=== PATIENT | female | born 1985 | race Caucasian/White ===

== ENCOUNTER → 2023-04-09 11:01 | Outpatient (BNVA) | payer MEDICAID, SELFPAY | PROVIDERS: PCP Nurse Practitioner Family; Visit Provider Nurse Practitioner Family | DX: M96.1 Postlaminectomy syndrome, not elsewhere classified (principal); M51.36 Other intervertebral disc degeneration, lumbar region; M47.817 Spondylosis without myelopathy or radiculopathy, lumbosacral region; M54.16 Radiculopathy, lumbar region; M25.551 Pain in right hip; M25.552 Pain in left hip; M53.3 Sacrococcygeal disorders, not elsewhere classified; G89.4 Chronic pain syndrome | CPT/HCPCS: 99202 ==

== ENCOUNTER 2023-04-19 13:11 | Day surgery (SDC) | payer MEDICAID, SELFPAY ==
--- NOTE | 2023-04-18 12:07 | P.CONAN_ITS ---
Documented by User: Allyssa Mena NP 04/18/23 12:11 HPI - Anesthesia Eval Consult details Narrative: 37yo F for Right Therapeutic Hip Intra-Articular Injection Opioids daily PMFSH Active Problems Active Problems: All Active Problems (Updated 04/10/23 @ 22:14 by ANGELY Campbell) Sacroiliac joint pain (Acute) Bilateral hip pain (Acute) Chronic pain syndrome (Acute) Lumbar radicular pain (Acute) Lumbosacral spondylosis (Acute) Lumbar degenerative disc disease (Acute) Failed back syndrome of lumbar spine (Acute) Past Medical History Medical History (Updated 04/10/23 @ 22:14 by ANGELY Campbell) Cholelithiasis Chronic GERD Chronic pain associated with significant psychosocial dysfunction Failed back syndrome of lumbar spine Low back pain Lumbar degenerative disc disease Major depressive disorder Social History Social History Alcohol intake: current Alcohol intake frequency: holidays/special occasions only Patient Tobacco Use Status: Never used Tobacco Advance Directives: No Advance Directives Information Provided: Yes Meds Allergies Allergy/AdvReac Type Severity Reaction Status Date / Time Penicillins Allergy Unknown Unknown Verified 04/09/23 11:16 Home Medications Medication Instructions Recorded Confirmed Last Taken Type cyclobenzaprine 5 mg tablet 5 mg PO BEDTIME PRN 04/09/23 Unknown History fluticasone propionate 50 0 mcg intranasal 04/09/23 Unknown History mcg/actuation nasal spray,suspension folic acid 1 mg tablet 1 mg PO DAILY 04/09/23 Unknown History hydroxyzine pamoate 25 mg capsule 25 - 50 mg PO BEDTIME PRN 04/09/23 Unknown History ibuprofen 600 mg tablet 600 mg PO TID PRN 04/09/23 Unknown History omeprazole 40 mg capsule,delayed 40 mg PO QAM 04/09/23 Unknown History release ondansetron 4 mg disintegrating 4 mg PO TID PRN 04/09/23 Unknown History tablet oxycodone 5 mg tablet 10 mg PO 04/09/23 Unknown History pantoprazole 40 mg tablet,delayed 40 mg PO DAILY 04/09/23 Unknown History release Exam Exam Date and Time: April 18, 2023 120 Assessment and Plan Assessment Anesthesia Assessment: Chart Reviewed Documented by User: Vern Guallpa MD 04/19/23 13:19 REPLACED BY [facility] Past Medical History Medical History (Updated 04/10/23 @ 22:14 by ANGELY Campbell) Cholelithiasis Chronic GERD Chronic pain associated with significant psychosocial dysfunction Failed back syndrome of lumbar spine Low back pain Lumbar degenerative disc disease Major depressive disorder Surgical History History of Problems with Anesthesia: No Social History Social History Alcohol intake: current Alcohol intake frequency: holidays/special occasions only Patient Tobacco Use Status: Never used Tobacco Advance Directives: No Advance Directives Information Provided: Yes Meds Allergies Allergy/AdvReac Type Severity Reaction Status Date / Time Penicillins Allergy Unknown Unknown Verified 04/09/23 11:16 Home Medications Medication Instructions Recorded Confirmed Last Taken Type cyclobenzaprine 5 mg tablet 5 mg PO BEDTIME PRN 04/09/23 Unknown History fluticasone propionate 50 0 mcg intranasal 04/09/23 Unknown History mcg/actuation nasal spray,suspension folic acid 1 mg tablet 1 mg PO DAILY 04/09/23 Unknown History hydroxyzine pamoate 25 mg capsule 25 - 50 mg PO BEDTIME PRN 04/09/23 Unknown History ibuprofen 600 mg tablet 600 mg PO TID PRN 04/09/23 Unknown History omeprazole 40 mg capsule,delayed 40 mg PO QAM 04/09/23 Unknown History release ondansetron 4 mg disintegrating 4 mg PO TID PRN 04/09/23 Unknown History tablet oxycodone 5 mg tablet 10 mg PO 04/09/23 Unknown History pantoprazole 40 mg tablet,delayed 40 mg PO DAILY 04/09/23 Unknown History release Exam Airway Mallampati Class: II Neck ROM: Full Heart: rrr Lungs: cta Assessment and Plan Assessment Anesthesia Assessment: Anesthesia Plan Discussed Final Anesthetic Review History of Problems with Anesthesia: No NPO: Yes ASA Class: II Final Preanesthetic Review: No Changes in Pt Med Stat, Meds/Allgs Chart Reviewed, Consent Obtained/Reviewed and Anes Risks/Benef Reviewed Patient Risk: Low Procedure Risk: Low Anesthetic Plan Anesthetic Plan: MAC: and Agree w/ Assess. and Plan Disposition: Standard PACU
[2023-04-19 13:35] VITALS: BMI 30.4
[2023-04-19] MEDS: Lactated Ringers 1,000 ML 100 ML IVCONT (13:38)
[2023-04-19 13:47] LABS: UPreg QC Valid YES; Urine Pregnancy NEGATIVE (NEGATIVE)
[2023-04-19 13:49] VITALS: BP 115/82; PULSE 76; RESP 18; TEMP 36.7; O2SAT 97
--- NOTE | 2023-04-19 14:21 | MHC.SHP ---
Pre-Procedural Eval Section A Date of Service: 04/19/23 Section B Chief Complaint: Right and Left pain in the hip Details of Present Illness: as above Relevant Family History (Specify if Yes): No Relevant Social History: None Present Medications: see Short Stay Collaborative assessment Medical History: No relevant PMH History of Previous Operations: No relevant previous surgery Allergies: Allergies Allergy/AdvReac Type Severity Reaction Status Date / Time Penicillins Allergy Unknown Unknown Verified 04/19/23 13:50 morphine AdvReac Anxiety Verified 04/19/23 13:54 Review of Systems Sugical H&P ROS: Negative: Constitution, Cardiovascular, Respiratory, Neurological, Psychiatric, Hem-Onc, Allergic/Immunologic, Gastrointestinal, Genitourinary, Integumentary, Endocrine and Eyes/Ears/Nose/Throat and Yes, Specify: Musculoskeletal (postlaminec s-manuel, hip osteoarthritis) Exam Surgical H&P Exam: Normal: HEENT, Normal: Heart, Normal: Lungs, Normal: Extremities, Normal: Abdomen, Normal: Skin and Normal: Neurological Plan Diagnosis/Plan: Unchanged I have reviewed the history and physical and performed a pertinent physical examination on my patient. No changes have occurred unless specified. Time Spent With Patient Time: Total time managing care of this patient today _5___ minutes.
--- NOTE | 2023-04-19 14:52 | P.BOP_ITS ---
Brief Operative Note Date of Service: 04/19/23 Pre-op diagnosis: right hip osteoarthritis Post-op diagnosis: same Procedure: right hip steroid injection. Surgeon: Joseph Roman MD Anesthesia: MAC Was an [employer] Administrator used for this Procedure?: No Estimated blood loss (mL): 0 Condition: stable Disposition: PACU
--- NOTE | 2023-04-19 14:55 | W.PM.OPN ---
Operative Note Operative Note Date of Service: 04/19/23 Narrative: right hip steroid injection. Informed consent was explained to the patient. All questions were explained and answered.? The patient was taken inside of the operating room where she was positioned left lateral decubitus on operating table.. ASA m-rs were applied and the patient was sedated. Time-out was performed delineating patient's name and date of , correct site, side, the nature of the procedure, patient's allergy, preoperative antibiotic if needed, need for VT prophylaxis..? All operating room staff was participating in OR time-out procedure. Right hip area of the patient was prepped with ChloraPrep and draped with sterile towels.? C-arm was brought over the operating field and picture of left and right lateral views of the bilateral hip joints were delineated on the screen.? The smaller joint silhouette was chosen as the target. ? Projection of the?right trochanter to the skin was chosen as the initial needle insertion point.? After that the skin and subcutaneous tissues was anesthetized with 2% lidocaine 2.5 mL.? 22 gauge 5 in long needle was inserted through the skin and started to advance to the joint space under intermittent lateral and? anterior posterior views.? When needle entered the capsule of the joint small amount of the contrast was injected delineating intra-articular space.? After that treatment solution containing 4 cc of bupivacaine 0.5% and 40 mg of Kenalog was injected into the joint.? The needle was withdrawn sterile dressing was applied.The patient tolerated procedure well.
[2023-04-19 15:00] VITALS: BP 107/56; PULSE 78; RESP 16; TEMP 36.4; O2SAT 99
[2023-04-19 15:13] VITALS: BP 105/66; PULSE 60; RESP 16; TEMP 36.7; O2SAT 99
== END 2023-04-19 15:42 | disposition home or self-care (01) ==
PROVIDERS: Nurse Practitioner; PCP Nurse Practitioner Family; Visit Provider Anesthesiology
PROC: (CPT 20610; principal; 2023-04-19 14:50)
DX: M16.11 Unilateral primary osteoarthritis, right hip (principal); M25.552 Pain in left hip; M96.1 Postlaminectomy syndrome, not elsewhere classified; G89.4 Chronic pain syndrome; M51.36 Other intervertebral disc degeneration, lumbar region; M47.817 Spondylosis without myelopathy or radiculopathy, lumbosacral region; M54.16 Radiculopathy, lumbar region; M53.3 Sacrococcygeal disorders, not elsewhere classified; Z88.0 Allergy status to penicillin; Z88.6 Allergy status to analgesic agent
CPT/HCPCS: 20610; 81025; J3301

== ENCOUNTER 2023-06-11 13:35 | Outpatient (AMB) | payer MEDICAID, SELFPAY ==
--- NOTE | 2023-06-11 13:37 | A.OFFVIS_ITS ---
Intake Vital Signs 06/11/23 13:43 Height 5 ft 5 in Weight 190 lb BMI 31.6 BP 119/76 Blood Pressure Location Lt brachial Position Sitting Pulse 84 Pulse Source Pulse Oximeter Pulse Oximetry (%) 97 Oxygen Delivery Method Room Air Intake Visit Reasons: s/p R. Hip 04/19/23 Allergies Penicillins Allergy (Unknown, Verified 06/11/23 13:44) Unknown morphine Adverse Reaction (Verified 06/11/23 13:44) Anxiety HPI HPI Comments History of Present Illness Details Patient presents today for follow up to assess response to Right Hip Intra-Articular Steroid injection on 04/19/[address] Roman. Patient reports 90% ongoing pain relief in her right hip and better movements for right leg, partially better functioning and sleep. She continues to endorse chronic low back pain with radiation to both her lower extremities. She is s cheduled to undergo Caudal ADDY with catheter this Sunday. Patient reports she has passed Behavioral Assessment in April for potential SCS and ITDD trials. Unfortunately, we have not received Behavioral Assessment report from [facility] as of today and will contact them for current status. Denies any recent cough, cold, infection, fever or other significant changes in medical history since last office visit. Patient denies any bladder or bowel incontinence or saddle anesthesia. Past Procedures: 04/19/23: Right Hip Intra-Articular Steroid injection-90% ongoing pain relief PRIOR: Patient is a 37 years old female with history of post laminectomy syndrome of lumbar spine, lumbar spine fusion L5-S1, chronic pain of his significant psychosocial dysfunction, depression, elevated STEPHANIE, obesity presents today with lower back pain radiating to her bilateral lateral hips and lower extremities laterally. Denies any recent trauma, injury, or falls. This has been chronic pain for the past 16 years and has been progressively getting worse. Pain affects her daily functioning, mobility, mood, sleep, social interactions and quality of life. Patient became tearful as she described her inadequate sleep for a very long time due to intractable pain in her lower back and difficulty finding the right positioning for comfort. Patient recently completed lumbar spine MRI which revealed new L4-L5 mild broad-based disc bulge with an extra foraminal protrusion and annular fissure. [id number] right and minimal left foraminal narrowing. Patient was recommended by her provider at [facility] to get a new spine injection which patient elected against that due to ineffective injections in the past. Currently patient is taking oxycodone which only partially alleviate her chronic back pain. I have informed patient that our office currently does not offer opioid prescribing. She was referred to us for potential spinal cord stimulator or intrathecal pump for for a more sustained pain relief. Patient is agreeable to both trials, SCS and ITDD trials, therefore I will submit referral for Behavioral Assessment today. We discussed alternative options, risk and benefits for both interventional therapies and I have provided patient and her is informational booklet today. She is also interested to get right hip intra-articular steroid and caudal ADDY with catheter injections under sedation. Patient reports she has tried physical therapy and back injections in the past and has not gained significant pain relief or improved functioning. She denies any fever, weight changes, abdominal or groin pain, bladder or bowel incontinence or saddle anesthesia. Location Low back pain and bilateral hip pain Duration Chronic back pain x16 years, progressively getting worse Characteristics of symptom or complaint Aching, spasming, tingling, shooting, shock-like, throbbing, stabbing Aggravating or associated factors Walking, standing, prolonged sitting, changing positioning, weather changes Relieving factors Oxycodone, cyclobenzaprine, amitriptyline, gabapentin, heat therapy Treatment PT, back injections, back surgery in [facility] Medical History Cholelithiasis Chronic GERD Chronic pain associated with significant psychosocial dysfunction Failed back syndrome of lumbar spine Low back pain Lumbar degenerative disc disease Major depressive disorder Social History Alcohol intake: current Alcohol intake frequency: holidays/special occasions only Patient Tobacco Use Status: Never used Tobacco Review of Systems Const All systems reviewed & are unremarkable except as noted in HPI and below Physical Exam Vital Signs: Last Vital Signs Pulse 84 06/11/23 13:43 BP 119/76 06/11/23 13:43 Pulse Ox 97 06/11/23 13:43 Oxygen Delivery Method Room Air 06/11/23 13:43 BMI result Body Mass Index 31.6 General: Appears afebrile. Alert and oriented. Mood and affect appropriate. Follows and participates in conversation appropriately. Respiratory effort is unlabored. No cough. No nasal discharge. Able to transition from sit to stand unassisted. Ambulates with bilaterally normal heel strike and toe off. Back/Spine/Pelvis Other: No right groin pain with I/E hip rotations. Mild groin and lateral hip pain with I/E hip rotations on the left. Patricks and Stinchfield tests positive bilaterally. Back: back tenderness Cervical Spine: normal cervical lordosis, cervical muscular tenderness, No Cervical spine tenderness and No step off deformity Thoracic/Lumbar Spine: thoracic and lumbar spine normal to inspection, Thoracic/lumbar spine scar(s), Lasegue's sign positive bilateral and diffuse, pain with thoraco-lumbar ROM, paraspinal muscle tenderness, thoraco-lumbar ROM limited, No thoracic spinal tenderness and lumbar spinal tenderness Pelvis: buttock tenderness bilaterally Sacroiliac joints: bilaterally tender to palpation Results Reviewed Results Reviewed: Assessment & Plan Assessment & Plan (1) Failed back syndrome of lumbar spine: Code(s): M96.1 - Postlaminectomy syndrome, not elsewhere classified (2) Lumbar degenerative disc disease: Code(s): M51.36 - Other intervertebral disc degeneration, lumbar region (3) Lumbosacral spondylosis: Code(s): M47.817 - Spondylosis without myelopathy or radiculopathy, lumbosacral region (4) Lumbar radicular pain: Code(s): M54.16 - Radiculopathy, lumbar region (5) Chronic pain syndrome: Code(s): G89.4 - Chronic pain syndrome (6) Bilateral hip pain: Code(s): M25.551 - Pain in right hip; M25.552 - Pain in left hip (7) Sacroiliac joint pain: Code(s): M53.3 - Sacrococcygeal disorders, not elsewhere classified Plan 1. Patient is status post right hip steroid injection with fluoroscopy guidance with 90% ongoing pain relief. 2. Per patient, she has passed Behavioral Assessment evaluation last month. Will reach out to [facility] for report. Once this is confirmed, will proceed with Lumbar SCS trial with sedation and fluoroscopy for chronic low back pain with history of previous back surgery. 3. Proceed with Caudal ADDY with catheter as scheduled. All questions and concer ns have been answered and the patient agreed with the plan. Follow up after injections and sooner if needed. Coding Level of Care Code Est Pt Level 4 (63416) Diagnoses Failed back syndrome of lumbar spine M96.1 Lumbar degenerative disc disease M51.36 Lumbosacral spondylosis M47.817 Lumbar radicular pain M54.16 Chronic pain syndrome G89.4 Bilateral hip pain M25.551; M25.552 Sacroiliac joint pain M53.3
[2023-06-11 13:43] VITALS: BP 119/76; PULSE 84; O2SAT 97; BMI 31.6
== END 2023-06-11 13:57 | disposition home or self-care (01) ==
PROVIDERS: PCP Nurse Practitioner Family; Visit Provider Nurse Practitioner Family
DX: M96.1 Postlaminectomy syndrome, not elsewhere classified (principal); M51.36 Other intervertebral disc degeneration, lumbar region; M47.817 Spondylosis without myelopathy or radiculopathy, lumbosacral region; M54.16 Radiculopathy, lumbar region; G89.4 Chronic pain syndrome; M25.551 Pain in right hip; M25.552 Pain in left hip; M53.3 Sacrococcygeal disorders, not elsewhere classified
CPT/HCPCS: 99214

== ENCOUNTER → 2023-06-11 13:35 | Outpatient (BNVA) | payer MEDICAID, SELFPAY | PROVIDERS: PCP Nurse Practitioner Family; Visit Provider Nurse Practitioner Family | DX: M25.551 Pain in right hip (principal); M25.552 Pain in left hip; M53.3 Sacrococcygeal disorders, not elsewhere classified; G89.4 Chronic pain syndrome; M54.16 Radiculopathy, lumbar region; M47.817 Spondylosis without myelopathy or radiculopathy, lumbosacral region; M51.36 Other intervertebral disc degeneration, lumbar region; M96.1 Postlaminectomy syndrome, not elsewhere classified | CPT/HCPCS: 99214 ==

== ENCOUNTER 2023-06-15 09:38 | Day surgery (SDC) | payer MEDICAID, SELFPAY ==
--- NOTE | 2023-05-09 10:47 | HO.ANESPROP2 ---
HPI - Anesthesia Eval Consult details Narrative: 37yo F for Caudal Epidural Steroid Injection with catheter s/p hip injection 03/2023 with TIVA PMFSH Active Problems Active Problems: All Active Problems (Updated 04/10/23 @ 22:14 by ANGELY Campbell) Sacroiliac joint pain (Acute) Bilateral hip pain (Acute) Chronic pain syndrome (Acute) Lumbar radicular pain (Acute) Lumbosacral spondylosis (Acute) Lumbar degenerative disc disease (Acute) Failed back syndrome of lumbar spine (Acute) Past Medical History Medical History (Updated 04/10/23 @ 22:14 by ANGELY Campbell) Cholelithiasis Chronic GERD Chronic pain associated with significant psychosocial dysfunction Failed back syndrome of lumbar spine Low back pain Lumbar degenerative disc disease Major depressive disorder Surgical History History of Problems with Anesthesia: No Social History Social History Alcohol intake: current Alcohol intake frequency: holidays/special occasions only Patient Tobacco Use Status: Never used Tobacco Meds Allergies Allergy/AdvReac Type Severity Reaction Status Date / Time Penicillins Allergy Unknown Unknown Verified 04/19/23 13:50 morphine AdvReac Anxiety Verified 04/19/23 13:54 Home Medications Medication Instructions Recorded Confirmed Last Taken Type cyclobenzaprine 5 mg tablet 5 mg PO BEDTIME PRN 04/09/23 Unknown History fluticasone propionate 50 0 mcg intranasal 04/09/23 Unknown History mcg/actuation nasal spray,suspension folic acid 1 mg tablet 1 mg PO DAILY 04/09/23 Unknown History hydroxyzine pamoate 25 mg capsule 25 - 50 mg PO BEDTIME PRN 04/09/23 Unknown History ibuprofen 600 mg tablet 600 mg PO TID PRN 04/09/23 Unknown History omeprazole 40 mg capsule,delayed 40 mg PO QAM 04/09/23 Unknown History release ondansetron 4 mg disintegrating 4 mg PO TID PRN 04/09/23 Unknown History tablet oxycodone 5 mg tablet 10 mg PO 04/09/23 04/19/23 10:00 History pantoprazole 40 mg tablet,delayed 40 mg PO DAILY 04/09/23 Unknown History release Exam Exam Date and Time: May 09, 2023 1047 Assessment and Plan Assessment Anesthesia Assessment: Chart Reviewed Final Anesthetic Review History of Problems with Anesthesia: No
[2023-06-13 11:57] VITALS: BMI 31.6
--- NOTE | 2023-06-14 10:58 | HO.ANESPROP2 ---
Documented by User: Allyssa Mena NP 06/14/23 10:59 HPI - Anesthesia Eval Consult details Narrative: 37yo F for Caudal Epidural Steroid Injection with catheter s/p hip injection 03/2023 with TIVA PMFSH Active Problems Active Problems: All Active Problems (Updated 04/10/23 @ 22:14 by ANGELY Campbell) Sacroiliac joint pain (Acute) Bilateral hip pain (Acute) Chronic pain syndrome (Acute) Lumbar radicular pain (Acute) Lumbosacral spondylosis (Acute) Lumbar degenerative disc disease (Acute) Failed back syndrome of lumbar spine (Acute) Past Medical History Medical History (Updated 06/15/23 @ 11:42 by Susy Bradford RN) Cholelithiasis Chronic GERD Chronic pain associated with significant psychosocial dysfunction Failed back syndrome of lumbar spine Low back pain Lumbar degenerative disc disease Major depressive disorder Osteoarthritis Surgical History Surgical History (Updated 06/15/23 @ 11:42 by Susy Bradford RN) History of back surgery History of Problems with Anesthesia: No Social History Social History Alcohol intake: current Alcohol intake frequency: holidays/special occasions only Patient Tobacco Use Status: Never used Tobacco Use of substances other than those prescribed or required for medical reasons: Yes Substance Use Frequency: Daily Are you DNR?: No Advance Directives: No Advance Directives Information Provided: Yes Meds Allergies Allergy/AdvReac Type Severity Reaction Status Date / Time Penicillins Allergy Unknown Unknown Verified 06/15/23 11:44 morphine AdvReac Anxiety Verified 06/15/23 11:44 Home Medications Medication Instructions Recorded Confirmed Last Taken Type cyclobenzaprine 5 mg tablet 5 mg PO BEDTIME PRN Muscle Pain 04/09/23 Unknown History fluticasone propionate 50 0 mcg intranasal 04/09/23 Unknown History mcg/actuation nasal spray,suspension folic acid 1 mg tablet 1 mg PO DAILY 04/09/23 Unknown History hydroxyzine pamoate 25 mg capsule 25 - 50 mg PO BEDTIME PRN Insomnia 04/09/23 Unknown History ibuprofen 600 mg tablet 600 mg PO TID PRN Pain 04/09/23 Unknown History omeprazole 40 mg capsule,delayed 40 mg PO QAM 04/09/23 Unknown History release ondansetron 4 mg disintegrating 4 mg PO TID PRN Nausea 04/09/23 Unknown History tablet oxycodone 5 mg tablet 10 mg PO 04/09/23 04/19/23 10:00 History pantoprazole 40 mg tablet,delayed 40 mg PO DAILY 04/09/23 Unknown History release amitriptyline 10 mg tablet 10 mg PO BEDTIME 06/11/23 Unknown History amitriptyline 25 mg tablet 25 mg PO BEDTIME 06/11/23 Unknown History Exam Exam Date and Time: June 14, 2023 1058 Height,Weight and Vital Signs: Height 5 ft 5 in Weight 86.183 kg Assessment and Plan Assessment Anesthesia Assessment: Chart Reviewed Final Anesthetic Review History of Problems with Anesthesia: No Documented by User: Vern Guallpa MD 06/15/23 11:54 [facility] Past Medical History Medical History (Updated 06/15/23 @ 11:42 by Susy Bradford RN) Cholelithiasis Chronic GERD Chronic pain associated with significant psychosocial dysfunction Failed back syndrome of lumbar spine Low back pain Lumbar degenerative disc disease Major depressive disorder Osteoarthritis Family History Family history of problems with anesthesia: No Surgical History Surgical History (Updated 06/15/23 @ 11:42 by Susy Bradford RN) History of back surgery Social History Social History Alcohol intake: current Alcohol intake frequency: holidays/special occasions only Patient Tobacco Use Status: Never used Tobacco Use of substances other than those prescribed or required for medical reasons: Yes Substance Use Frequency: Daily Are you DNR?: No Advance Directives: No Advance Directives Information Provided: Yes Meds Allergies Allergy/AdvReac Type Severity Reaction Status Date / Time Penicillins Allergy Unknown Unknown Verified 06/15/23 11:44 morphine AdvReac Anxiety Verified 06/15/23 11:44 Home Medications Medication Instructions Recorded Confirmed Last Taken Type cyclobenzaprine 5 mg tablet 5 mg PO BEDTIME PRN Muscle Pain 04/09/23 Unknown History fluticasone propionate 50 0 mcg intranasal 04/09/23 Unknown History mcg/actuation nasal spray,suspension folic acid 1 mg tablet 1 mg PO DAILY 04/09/23 Unknown History hydroxyzine pamoate 25 mg capsule 25 - 50 mg PO BEDTIME PRN Insomnia 04/09/23 Unknown History ibuprofen 600 mg tablet 600 mg PO TID PRN Pain 04/09/23 Unknown History omeprazole 40 mg capsule,delayed 40 mg PO QAM 04/09/23 Unknown History release ondansetron 4 mg disintegrating 4 mg PO TID PRN Nausea 04/09/23 Unknown History tablet oxycodone 5 mg tablet 10 mg PO 04/09/23 04/19/23 10:00 History pantoprazole 40 mg tablet,delayed 40 mg PO DAILY 04/09/23 Unknown History release amitriptyline 10 mg tablet 10 mg PO BEDTIME 06/11/23 Unknown History amitriptyline 25 mg tablet 25 mg PO BEDTIME 06/11/23 Unknown History Exam Airway Mallampati Class: II TM Dist: >3cm Heart: rrr Lungs: cta Assessment and Plan Final Anesthetic Review Family History of Problems with Anesthesia: No NPO: Yes ASA Class: II Final Preanesthetic Review: No Changes in Pt Med Stat, Meds/Allgs Chart Reviewed, Consent Obtained/Reviewed and Anes Risks/Benef Reviewed Patient Risk: Low Procedure Risk: Low Anesthetic Plan Anesthetic Plan: MAC: and Agree w/ Assess. and Plan Disposition: Standard PACU
--- NOTE | ~2023-06-15 | FL_ITS ---
EXAMINATION: XR FLUOROSCOPY WITH IMAGES CLINICAL INFORMATION: Caudal epidural steroid injection. COMPARISON: None available. TECHNIQUE: Fluoroscopy Supervised By: Dr. Joseph Roman. Fluoroscopy Time: 0.1 minute. Cumulative Dose: 2.76 mGy. DAP: 0.690 Gycm2. Images: 3. FINDINGS: Image demonstrates needle placement and epidural contrast injection over the lower sacrum. There are postsurgical changes from likely interbody fusion at L5-S1. There are surgical clips in the pelvis. There is an IUD in the pelvis. FL/FL guidance in OR IMPRESSION: Fluoroscopy guidance for pain management procedure.
[2023-06-15 10:21] LABS: UPreg QC Valid YES; Urine Pregnancy NEGATIVE (NEGATIVE)
[2023-06-15 11:19] VITALS: BP 116/72; PULSE 97; RESP 15; TEMP 36.4; O2SAT 97
--- NOTE | 2023-06-15 11:36 | MHC.SHP ---
Pre-Procedural Eval Section A Date of Service: 06/15/23 The patient is an INPATIENT: No Changes since office visit: Yes Patient answered all questions The History & Physical has been completed within 30 days and I have reviewed it.: No Section B Chief Complaint: Postlaminectomy syndrome, Details of Present Illness: as above Relevant Family History (Specify if Yes): No Relevant Social History: None Present Medications: None Medical History: No relevant PMH History of Previous Operations: No relevant previous surgery Allergies: Allergies Allergy/AdvReac Type Severity Reaction Status Date / Time Penicillins Allergy Unknown Unknown Verified 06/11/23 13:44 morphine AdvReac Anxiety Verified 06/11/23 13:44 Review of Systems Sugical H&P ROS: Negative: Cardiovascular, Respiratory, Neurological, Psychiatric, Hem-Onc, Allergic/Immunologic, Gastrointestinal, Genitourinary, Integumentary, Endocrine and Eyes/Ears/Nose/Throat and Yes, Specify: Constitution ( obesity) and Musculoskeletal ( postlaminectomy syndrome) Exam Surgical H&P Exam: Normal: HEENT, Normal: Heart, Normal: Lungs, Normal: Extremities, Normal: Abdomen, Normal: Skin and Normal: Neurological Plan Diagnosis/Plan: Unchanged I have reviewed the history and physical and performed a pertinent physical examination on my patient. No changes have occurred unless specified. Time Spent With Patient Time: Total time managing care of this patient today ____ minutes.
[2023-06-15] MEDS: Lactated Ringers 1,000 ML 100 ML IVCONT (11:41)
--- NOTE | 2023-06-15 12:14 | PM.OP ---
Brief Operative Note Date of Service: 06/15/23 Pre-op diagnosis: postlaminectomy syndrome Post-op diagnosis: same Procedure: caudal epidural steroid injection with catheter Implants: none Surgeon: Joseph Roman MD Was an Senior Software Engineering Manager used for this Procedure?: No Estimated blood loss (mL): 0 Condition: stable Disposition: PACU
--- NOTE | 2023-06-15 12:15 | W.PM.OPN ---
Operative Note Operative Note Date of Service: 06/15/23 Narrative: Before the procedure informed consent was thoroughly explained to the patient risks and benefits explained including bleeding , infection, headache, peripheral nerve damage. patient came to the operating room. she was positioned prone on the operating table. [place] [employer] monitors were applied and the patient was deeply sedated. time-out was performed delineating correct site and side of the procedure name minute of the patient, risk of allergies needs for antibiotics. Of the lower back buttocks and intergluteal crease were prepped with ChloraPrep and draped with sterile Utility towels. C-arm was brought of the operating field and sq image of the patient's pelvis was demonstrated on the screen. Sacral bone was visualized and 3 cm below the level of sacral canal projection to the skin injection of the local anesthetic 2% lidocaine was performed. After that 18 gauge epidural Touhy needle was inserted through the skin and advanced to were the will canal. Position of the C-arm was changed to lateral and when tip of the needle entered the caudal canal injection of the contrast was performed delineating epidural spread of the contrast. 22 gauge epidural catheter was inserted to the needle and was advanced into the epidural space until resistance was felt. Incidentally significant sacroiliac joint insufficiency was noted more on the left and less on the right. C-arm was returned into AP position and injection of the contrast was performed into epidural catheter. The contrast was spreading at L5-S1 epidural space. After that 30 cc of normal saline preservative-free was injected into the epidural catheter, following this 1% lidocaine 5 cc mixed with Kenalog 40 mg was injected into the catheter. Upon completion of the injection epidural needle was removed and mass with the catheter the tip of the catheter was intact. Sterile dressing with bacitracin was applied to the area of the needle inject insertion. Patient tolerated procedure well she was taking outside of the operating room to recovery room where she recovered uneventfully.
[2023-06-15 12:28] VITALS: BP 103/63; PULSE 96; RESP 16; TEMP 36.9; O2SAT 100
[2023-06-15 12:43] VITALS: BP 130/84; PULSE 91; RESP 18; TEMP 37; O2SAT 100
== END 2023-06-15 13:15 | disposition home or self-care (01) ==
PROVIDERS: Nurse Practitioner; PCP Nurse Practitioner Family; Visit Provider Anesthesiology
PROC: 3E0R3GC Introduction of Other Therapeutic Substance into Spinal Canal, Percutaneous Approach (ICD-10-PCS; CPT 62322; principal; 2023-06-15 11:20)
DX: M96.1 Postlaminectomy syndrome, not elsewhere classified (principal); G89.4 Chronic pain syndrome; M51.36 Other intervertebral disc degeneration, lumbar region; M47.817 Spondylosis without myelopathy or radiculopathy, lumbosacral region; M54.16 Radiculopathy, lumbar region; F45.42 Pain disorder with related psychological factors; M54.50 Low back pain, unspecified; M53.3 Sacrococcygeal disorders, not elsewhere classified; M25.551 Pain in right hip; M25.552 Pain in left hip; Z79.51 Long term (current) use of inhaled steroids; Z79.1 Long term (current) use of non-steroidal anti-inflammatories (NSAID); Z79.899 Other long term (current) drug therapy; Z88.0 Allergy status to penicillin; Z98.1 Arthrodesis status; Z88.5 Allergy status to narcotic agent; K21.9 Gastro-esophageal reflux disease without esophagitis; F32.A Depression, unspecified
CPT/HCPCS: 62323; 81025; J2371; J3301; Q9967

== ENCOUNTER → 2023-06-15 09:38 | Outpatient (BNV) | payer MEDICAID, SELFPAY | PROVIDERS: PCP Nurse Practitioner Family; Visit Provider Anesthesiology | DX: M96.1 Postlaminectomy syndrome, not elsewhere classified (principal) | CPT/HCPCS: 62323 ==

== ENCOUNTER 2023-07-17 13:58 | Outpatient (AMB) | payer MEDICAID, SELFPAY ==
--- NOTE | 2023-07-17 13:59 | A.OFFVIS_ITS ---
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 Roman. Patient reports 0% pain relief for her back pain and reports injection actually worsened her pain symptoms. She reports she had to regularly take her oxycodone medication, which is currently at 50 mg/day. Patient is considering to increase current opioid dose with her PCP for adequate pain control. Current regime provides her minimal pain relief. Sacroiliac joint insufficiency was noted more the left and less on the right while performing caudal ADDY per Dr. Roman. Patient is not interested to proceed with SIJ injections at this time as she has been in significant pain due to her lower back, hip and leg pain. She would like to proceed with ITDD trial with Dilaudid as next steps. Chronic daily pain continues negatively affect patient's functioning, mobility, personal care, housework, mood, social interactions, sleep, traveling, and quality of life. Patient passed her Behavioral Evaluation. We discussed to hold off increasing opiods until ITDD trial is complete. Denies any recent cough, cold, infection, fever or other significant changes in medical history since last office visit. Patient denies any bladder or bowel incontinence or saddle anesthesia. Past Procedures: 06/15/23: Caudal ADDY with catheter: 0% p ain relief, made pain worse 04/19/23: Right Hip Intra-Articular Ster oid injection-90% ongoing pain relief PRIOR: Patient is a 37 years old female with history of post laminectomy syndrome of lumbar spine, lumbar spine fusion L5-S1, chronic pain of his significant psychosocial dysfunction, depression, elevated STEPHANIE, obesity presents today with lower back pain radiating to her bilateral lateral hips and lower extremities laterally. Denies any recent trauma, injury, or falls. This has been chronic pain for the past 16 years and has been progressively getting worse. Pain affects her daily functioning, mobility, mood, sleep, social interactions and quality of life. Patient became tearful as she described her inadequate sleep for a very long time due to intractable pain in her lower back and difficulty finding the right positioning for comfort. Patient recently completed lumbar spine MRI which revealed new L4-L5 mild broad-based disc bulge with an extra foraminal protrusion and annular fissure. [id number] right and minimal left foraminal narrowing. Patient was recommended by her provider at [facility] to get a new spine injection which patient elected against that due to ineffective injections in the past. Currently patient is taking oxycodone which only partially alleviate her chronic back pain. I have informed patient that our office currently does not offer opioid prescribing. She was referred to us for potential spinal cord stimulator or intrathecal pump for for a more sustained pain relief. Patient is agreeable to both trials, SCS and ITDD trials, therefore I will submit referral for Behavioral Assessment today. We discussed alternative options, risk and benefits for both interventional therapies and I have provided patient and her is informational booklet today. She is also interested to get right hip intra-articular steroid and caudal ADDY with catheter injections under sedation. Patient reports she has tried physical therapy and back injections in the past and has not gained significant pain relief or improved functioning. She denies any fever, weight changes, abdominal or groin pain, bladder or bowel incontinence or saddle anesthesia. Location Low back pain and bilateral hip pain Duration Chronic back pain x16 years, progressively getting worse Characteristics of symptom or complaint Aching, spasming, tingling, shooting, shock-like, throbbing, stabbing Aggravating or associated factors Walking, standing, prolonged sitting, changing positioning, weather changes Relieving factors Oxycodone, cyclobenzaprine, amitriptyline, gabapentin, heat therapy Treatment PT, back injections, back surgery [facility] Medical History Osteoarthritis Lumbar degenerative disc disease Cholelithiasis Major depressive disorder Failed back syndrome of lumbar spine Chronic pain associated with significant psychosocial dysfunction Low back pain Chronic GERD Surgical History History of back surgery Social History Alcohol intake: current Alcohol intake frequency: holidays/special occasions only Patient Tobacco Use Status: Never used Tobacco Review of Systems Const All systems reviewed & are unremarkable except as noted in HPI and below Physical Exam Vital Signs: Last Vital Signs Pulse 83 07/17/23 14:06 BP 123/88 07/17/23 14:06 Pulse Ox 98 07/17/23 14:06 Oxygen Delivery Method Room Air 07/17/23 14:06 BMI result Body Mass Index 31.6 General: Appears afebrile. Alert and oriented. Mood and affect appropriate. Follows and participates in conversation appropriately. Respiratory effort is unlabored. No cough. Able to transition from sit to stand unassisted. Ambulates with bilaterally normal heel strike and toe off. Back/Spine/Pelvis Other: Mild to moderate bilateral groin pain with I/E hip rotations, worse on the left. Patricks, Gaenslen, Pelvic compression and Stinchfield tests positive bilaterally. Back: back tenderness Cervical Spine: normal cervical lordosis, cervical muscular tenderness and No Cervical spine tenderness Thoracic/Lumbar Spine: thoracic and lumbar spine normal to inspection, Thoracic/lumbar spine scar(s), Lasegue's sign positive bilateral and diffuse, pain with thoraco-lumbar ROM, paraspinal muscle tenderness, thoraco-lumbar ROM limited, No thoracic spinal tenderness and lumbar spinal tenderness Pelvis: buttock tenderness bilaterally Sacroiliac joints: bilaterally tender to palpation Results Reviewed Results Reviewed: Assessment & Plan Assessment & Plan (1) Failed back syndrome of lumbar spine: Code(s): M96.1 - Postlaminectomy syndrome, not elsewhere classified (2) Lumbar degenerative disc disease: Code(s): M51.36 - Other intervertebral disc degeneration, lumbar region (3) Lumbosacral spondylosis: Code(s): M47.817 - Spondylosis without myelopathy or radiculopathy, lumbosacral region (4) Chronic pain syndrome: Code(s): G89.4 - Chronic pain syndrome (5) Bilateral hip pain: Code(s): M25.551 - Pain in right hip; M25.552 - Pain in left hip (6) Sacroiliac joint pain: Code(s): M53.3 - Sacrococcygeal disorders, not elsewhere classified Plan Patient is status post Caudal ADDY with catheter without any pain relief. She continues to endorse low back pain, bilateral hip and SIJ pain. Patient recently passed Behavioral Evaluation and would like to proceed with ITDD pain pump trial. Patient currently takes oxycodone 50 mg per day and is aware to hold opioids for 24 hours prior to ITDD trial and 30 days prior to ITDD implant. We also reviewed SCS trial for post-laminectomy syndrome. Patient prefers ITDD trial prior to consideration of SCS trial. Schedule ITDD trial with Dilaudid with local and fluoroscopy. Expectations, risks and benefits were reviewed. Patient is aware she will be contacted to schedule this procedure. All questions were answered and the patient is in agreement of plan. Follow-up after ITDD trial and sooner as needed. Coding Level of Care Code Est Pt Level 4 (91717) Diagnoses Failed back syndrome of lumbar spine M96.1 Lumbar degenerative disc disease M51.36 Lumbosacral spondylosis M47.817 Chronic pain syndrome G89.4 Bilateral hip pain M25.551; M25.552 Sacroiliac joint pain M53.3
[2023-07-17 14:06] VITALS: BP 123/88; PULSE 83; O2SAT 98; BMI 31.6
== END 2023-07-17 14:30 | disposition home or self-care (01) ==
PROVIDERS: PCP Nurse Practitioner Family; Visit Provider Nurse Practitioner Family
DX: M96.1 Postlaminectomy syndrome, not elsewhere classified (principal); M51.36 Other intervertebral disc degeneration, lumbar region; M47.817 Spondylosis without myelopathy or radiculopathy, lumbosacral region; G89.4 Chronic pain syndrome; M25.551 Pain in right hip; M25.552 Pain in left hip; M53.3 Sacrococcygeal disorders, not elsewhere classified
CPT/HCPCS: 99214

== ENCOUNTER → 2023-07-17 13:58 | Outpatient (BNVA) | payer MEDICAID, SELFPAY | PROVIDERS: PCP Nurse Practitioner Family; Visit Provider Nurse Practitioner Family | DX: M96.1 Postlaminectomy syndrome, not elsewhere classified (principal); M51.36 Other intervertebral disc degeneration, lumbar region; M47.817 Spondylosis without myelopathy or radiculopathy, lumbosacral region; M25.551 Pain in right hip; M25.552 Pain in left hip; M53.3 Sacrococcygeal disorders, not elsewhere classified; G89.4 Chronic pain syndrome | CPT/HCPCS: 99212 ==

== ENCOUNTER 2023-08-07 07:27 | Outpatient (REF) | payer MEDICAID, SELFPAY ==
--- NOTE | ~2023-08-07 | FL_ITS ---
EXAMINATION: XR FLUOROSCOPY WITH IMAGES CLINICAL INFORMATION: Chronic pain syndrome. COMPARISON: None available. TECHNIQUE: Fluoroscopy Supervised By: Dr. Joseph Roman. Fluoroscopy Time: 0.2 minutes. Cumulative Dose: 5.09 mGy. DAP: 1.16 Gycm2. Images: 1. FINDINGS: Image demonstrates needle projecting over the midline lumbar spine FL/FL guidance in treatment room IMPRESSION: Fluoroscopy guidance for pain management procedure
== END 2023-08-07 07:28 | disposition home or self-care (01) ==
LOC: CF 07:27
PROVIDERS: Visit Provider Anesthesiology
DX: G89.4 Chronic pain syndrome (principal)
CPT/HCPCS: 62323; J1170

== ENCOUNTER 2023-08-07 12:49 | Outpatient (AMB) | payer MEDICAID, SELFPAY ==
[2023-08-07 13:00] VITALS: BP 138/84; PULSE 94; RESP 16; O2SAT 96; BMI 31.6
--- NOTE | 2023-08-07 13:00 | MHC.OFFVIS ---
Intake Vital Signs 08/07/23 13:00 08/07/23 13:01 08/07/23 14:59 Height 5 ft 5 in 5 ft 5 in 5 ft 5 in Weight 190 lb 190 lb 190 lb BMI 31.6 31.6 31.6 BP 138/84 140/86 H 132/90 H Blood Pressure Location Rt brachial Rt brachial Rt brachial Position Sitting Sitting Sitting Respiration 16 16 16 Pulse 94 93 95 Pulse Source Pulse Oximeter Pulse Oximeter Pulse Oximeter Pulse Oximetry (%) 96 99 98 Oxygen Delivery Method Room Air Room Air Room Air Comment pre-op post-op @2:19 pm Intake Visit Reasons: ITDD TRIAL W/DILAUDID/LOCAL Allergies Penicillins Allergy (Unknown, Verified 08/07/23 14:59) Unknown morphine Adverse Reaction (Verified 08/07/23 14:59) Anxiety PFSH Medical History Osteoarthritis Lumbar degenerative disc disease Cholelithiasis Major depressive disorder Failed back syndrome of lumbar spine Chronic pain associated with significant psychosocial dysfunction Low back pain Chronic GERD Surgical History History of back surgery Social History Alcohol intake: current Alcohol intake frequency: holidays/special occasions only Patient Tobacco Use Status: Never used Tobacco Physical Exam Vital Signs: Last Vital Signs Pulse 95 08/07/23 14:59 Resp 16 08/07/23 14:59 BP 132/90 H 08/07/23 14:59 Pulse Ox 98 08/07/23 14:59 Oxygen Delivery Method Room Air 08/07/23 14:59 BMI result Body Mass Index 31.6 Assessment & Plan Assessment & Plan (1) Chronic pain syndrome: Code(s): G89.4 - Chronic pain syndrome Plan: Intrathecal pain pump trial Informed consent was explained to the patient. All questions were explained and answered.? The patient was taken inside of the operating room where she was positioned prone on the operating table.? Time-out was performed delineating patient's name and date of , correct site, side, the nature of the procedure, patient's allergy, preoperative antibiotic if needed.? All operating room staff And the patient were participating in OR time-out procedure. ?the patient's lower back was prepped with ChloraPrep and draped with sterile? utility draped.? Sterilely draped C-arm was brought over the operating field and sq picture of? lumbar vertebrae were delineated on the screen. the target of needle insertion was chosen between L2 and L3 vertebrae. The projection of the right lamina of the L2 vertebra was chosen as the starting point of the injection.? 22 gauge 3-1/2 inch whittackre needle was inserted through the skin after skin wheal was raised with lidocaine 2%.? The needle was directed to the interlaminar space.? The advancement of the needle was performed on intermittent anterior posterior and lateral views.? On anterior posterior view needle was keppped strictly in the midline.? On the lateral view needle entered in the projection of the center of the spinal canal.? At that moment the stylet was removed from the needle and clear flow CSF was detected in the needle hub.? After that ? 0.8mL solution containing 80 mcg of hydromorphone was injected into the needle. After that needle was removed sterile dressing was applied.? Patient tolerated procedure well.? She was taken outside of the operating room to the recovery room where she recovered uneventfully. Orders: Orders FL guidance in treatment room 08/07/23 G89.4 - Chronic pain syndrome Coding Level of Care Code Procedure Only Diagnoses Chronic pain syndrome G89.4
[2023-08-07 13:01] VITALS: BP 140/86; PULSE 93; RESP 16; O2SAT 99; BMI 31.6
[2023-08-07 14:59] VITALS: BP 132/90; PULSE 95; RESP 16; O2SAT 98; BMI 31.6
== END 2023-08-07 14:18 | disposition home or self-care (01) ==
LOC: HO.PMCPRC 12:49
PROVIDERS: PCP Nurse Practitioner Family; Visit Provider Anesthesiology
DX: G89.4 Chronic pain syndrome (principal)
CPT/HCPCS: 62323

== ENCOUNTER 2023-08-13 13:23 | Outpatient (AMB) | payer MEDICAID, SELFPAY ==
[2023-08-13 13:36] VITALS: BP 122/88; PULSE 102; O2SAT 100; BMI 31.8
--- NOTE | 2023-08-13 13:36 | MHC.OFFVIS ---
Intake Vital Signs 08/13/23 13:36 Height 5 ft 5 in Weight 191 lb BMI 31.8 BP 122/88 Blood Pressure Location Lt brachial Position Sitting Pulse 102 H Pulse Source Pulse Oximeter Pulse Oximetry (%) 100 Oxygen Delivery Method Room Air Intake Visit Reasons: ITDD TRIAL W/DILAUDID 08/07 Intake Note: Pain today 02/28 Clinical Rn Liaison Required: No Accompanied by: Spouse Allergies Penicillins Allergy (Unknown, Verified 08/13/23 13:37) Unknown morphine Adverse Reaction (Verified 08/13/23 13:37) Anxiety HPI HPI Comments History of Present Illness Details Patient presents today for follow up to assess response to ITDD with Dilaudid trial on 08/07/[address] Roman. Patient reports 100% pain relief for her back pain and hips areas for 5.5 hours with significant improvement in her mobility, functioning, mood, ADLs and quality of life. She reports right hip and groin has returned and requests to repeat cortisone injection while she starts oxycodone titration down. Patient passed Behavioral evaluation for ITDD pump implant. Given good results with ITDD trial on Dilaudid, she wishes to proceed with ITDD implant. She is currently taking 10 mg 5x per day and will need 60 days to stay off opioids. Chronic daily pain continues negatively affect patient's functioning, mobility, personal care, housework, mood, social interactions, sleep, traveling, and quality of life. Denies any recent cough, cold, infection, fever or other significant changes in medical history since last office visit. Patient denies any bladder or bowel incontinence or saddle anesthesia. Past Procedures: 06/15/23: Caudal ADDY with catheter: 0% pain relief, made pain worse 04/19/23: Right Hip Intra-Articular Steroid injection-90% ongoing pain relief PRIOR: Patient is a 37 years old female with history of post laminectomy syndrome of lumbar spine, lumbar spine fusion L5-S1, chronic pain of his significant psychosocial dysfunction, depression, elevated STEPHANIE, obesity presents today with lower back pain radiating to her bilateral lateral hips and lower extremities laterally. Denies any recent trauma, injury, or falls. This has been chronic pain for the past 16 years and has been progressively getting worse. Pain affects her daily functioning, mobility, mood, sleep, social interactions and quality of life. Patient became tearful as she described her inadequate sleep for a very long time due to intractable pain in her lower back and difficulty finding the right positioning for comfort. Patient recently completed lumbar spine MRI which revealed new L4-L5 mild broad-based disc bulge with an extra foraminal protrusion and annular fissure. [id number] right and minimal left foraminal narrowing. Patient was recommended by her provider at [facility] to get a new spine injection which patient elected against that due to ineffective injections in the past. Currently patient is taking oxycodone which only partially alleviate her chronic back pain. I have informed patient that our office currently does not offer opioid prescribing. She was referred to us for potential spinal cord stimulator or intrathecal pump for for a more sustained pain relief. Patient is agreeable to both trials, SCS and ITDD trials, therefore I will submit referral for Behavioral Assessment today. We discussed alternative options, risk and benefits for both interventional therapies and I have provided patient and her is informational booklet today. She is also interested to get right hip intra-articular steroid and caudal ADDY with catheter injections under sedation. Patient reports she has tried physical therapy and back injections in the past and has not gained significant pain relief or improved functioning. She denies any fever, weight changes, abdominal or groin pain, bladder or bowel incontinence or saddle anesthesia. Location Low back pain and bilateral hip pain Duration Chronic back pain x16 years, progressively getting worse Characteristics of symptom or complaint Aching, spasming, tingling, shooting, shock-like, throbbing, stabbing Aggravating or associated factors Walking, standing, prolonged sitting, changing positioning, weather changes Relieving factors Oxycodone, cyclobenzaprine, amitriptyline, gabapentin, heat therapy Treatment PT, back injections, back surgery in 2008 [facility] Medical History Osteoarthritis Lumbar degenerative disc disease Cholelithiasis Major depressive disorder Failed back syndrome of lumbar spine Chronic pain associated with significant psychosocial dysfunction Low back pain Chronic GERD Surgical History History of back surgery Social History Alcohol intake: current Alcohol intake frequency: holidays/special occasions only Patient Tobacco Use Status: Never used Tobacco Review of Systems Const All systems reviewed & are unremarkable except as noted in HPI and below Physical Exam Vital Signs: Last Vital Signs Pulse 102 H 08/13/23 13:36 BP 122/88 08/13/23 13:36 Pulse Ox 100 08/13/23 13:36 Oxygen Delivery Method Room Air 08/13/23 13:36 BMI result Body Mass Index 31.8 General: Appears afebrile. Alert and oriented. Mood and affect appropriate. Follows and participates in conversation appropriately. Respiratory effort is unlabored. No cough. Able to transition from sit to stand unassisted. Ambulates with bilaterally normal heel strike and toe off. Back/Spine/Pelvis Other: Moderate bilateral groin pain with I/E hip rotations, worse on the right. Patricks, Gaenslen, Pelvic compression and Stinchfield tests positive bilaterally. Back: back tenderness Cervical Spine: cervical muscular tenderness and No Cervical spine tenderness Thoracic/Lumbar Spine: thoracic and lumbar spine normal to inspection, Thoracic/lumbar spine scar(s), Lasegue's sign positive bilateral and diffuse, pain with thoraco-lumbar ROM, paraspinal muscle tenderness, thoraco-lumbar ROM limited, No thoracic spinal tenderness and lumbar spinal tenderness Pelvis: buttock tenderness bilaterally Sacroiliac joints: bilaterally tender to palpation Assessment & Plan Assessment & Plan (1) Failed back syndrome of lumbar spine: Code(s): M96.1 - Postlaminectomy syndrome, not elsewhere classified (2) Lumbosacral spondylosis: Code(s): M47.817 - Spondylosis without myelopathy or radiculopathy, lumbosacral region (3) Lumbar radicular pain: Code(s): M54.16 - Radiculopathy, lumbar region (4) Chronic pain syndrome: Code(s): G89.4 - Chronic pain syndrome (5) Bilateral hip pain: Code(s): M25.551 - Pain in right hip; M25.552 - Pain in left hip (6) Sacroiliac joint pain: Code(s): M53.3 - Sacrococcygeal disorders, not elsewhere classified Plan 1. Patient s/p ITDD trial with Dilaudid with good results, 100% pain relief for 5.5 hours with improved funcitoning and mobility. She wishes to proceed with ITDD Implant. Patient is aware to titrate opioid off and be completely opioid free for 60 days and will notify our office when she stops taking opioids. The trialed and failed therapy has been reviewed with the patient. The risks, consequences, alternatives, and benefits of various treatment options were discussed with the patient and her in great detail, including conservative management, injections and procedures. 2. In meantime, we will schedule repeat Right hip intra-articular steroid injection with sedation and fluoroscopy for hip pain. Diagnostic Sacroiliac Joint Injections were previously discussed with patient. If no significant pain relief with hip injection, will review SIJ injections. 3. Encouraged daily physical activity, adequate hydration, healthy food choices, good posture, activity modifications, and weight optimization. All questions and concerns have been answered and the patient agreed with the plan. Follow up after injections and sooner if needed. Anticoagulation: Patient not on anticoagulant Justification for interventional therapy: ? Patient with average pain > 6/10 ? Patient has exhausted conservative therapy, NSAIDs, physical therapy ? Patient continuing home exercise program The risks, consequences, alternatives, and benefits of various treatment options were discussed with the patient in great detail, including conservative management, injections and procedures. I informed patient of the hyperglycemic effects of steroids. Coding Level of Care Code Est Pt Level 4 (01738) Diagnoses Failed back syndrome of lumbar spine M96.1 Lumbosacral spondylosis M47.817 Lumbar radicular pain M54.16 Chronic pain syndrome G89.4 Bilateral hip pain M25.551; M25.552 Sacroiliac joint pain M53.3
== END 2023-08-13 13:45 | disposition home or self-care (01) ==
PROVIDERS: PCP Nurse Practitioner Family; Visit Provider Nurse Practitioner Family
DX: M96.1 Postlaminectomy syndrome, not elsewhere classified (principal); M47.817 Spondylosis without myelopathy or radiculopathy, lumbosacral region; M54.16 Radiculopathy, lumbar region; G89.4 Chronic pain syndrome; M25.551 Pain in right hip; M25.552 Pain in left hip; M53.3 Sacrococcygeal disorders, not elsewhere classified
CPT/HCPCS: 99214

== ENCOUNTER → 2023-08-13 13:23 | Outpatient (BNVA) | payer MEDICAID, SELFPAY | PROVIDERS: PCP Nurse Practitioner Family; Visit Provider Nurse Practitioner Family | DX: M47.817 Spondylosis without myelopathy or radiculopathy, lumbosacral region (principal); M96.1 Postlaminectomy syndrome, not elsewhere classified; M54.16 Radiculopathy, lumbar region; M25.551 Pain in right hip; M25.552 Pain in left hip; M53.3 Sacrococcygeal disorders, not elsewhere classified; G89.4 Chronic pain syndrome | CPT/HCPCS: 99212 ==

== ENCOUNTER 2023-08-24 07:29 | Day surgery (SDC) | payer MEDICAID, SELFPAY ==
[2023-08-21 19:19] VITALS: BMI 32.8
--- NOTE | 2023-08-23 10:21 | HO.ANESPROP2 ---
Documented by User: Allyssa Mena NP 08/23/23 10:22 HPI - Anesthesia Eval Consult details Narrative: 38yo F for Right Hip Intra-Articular Steroid Injection s/p Caudal Epidural Steroid Injection 05/2023 with TIVA s/p hip injection 03/2023 with TIVA PMFSH Active Problems Active Problems: All Active Problems (Updated 08/21/23 @ 19:18 by Billie Singh RN) Sacroiliac joint pain (Acute) Bilateral hip pain (Acute) Chronic pain syndrome (Acute) Lumbar radicular pain (Acute) Lumbosacral spondylosis (Acute) Lumbar degenerative disc disease (Acute) Failed back syndrome of lumbar spine (Acute) Past Medical History Medical History Nausea Fibromyalgia Cannabis abuse, daily use Osteoarthritis Lumbar degenerative disc disease Cholelithiasis Major depressive disorder Failed back syndrome of lumbar spine Chronic pain associated with significant psychosocial dysfunction Low back pain Chronic GERD Family History Family history of problems with anesthesia: No Surgical History Surgical History History of back surgery History of Problems with Anesthesia: No Social History Social History Alcohol intake: current Alcohol intake frequency: holidays/special occasions only Patient Tobacco Use Status: Never used Tobacco Use of substances other than those prescribed or required for medical reasons: Yes Substance Use Type Other:: Smokes Marijuana Daily Substance Use Frequency: Daily Are you DNR?: No Advance Directives: No Advance Directives Information Provided: Yes Advance Directives on File: No Recently lost weight without trying: No Nutrition Risks: No Nutritional Risk Patient : No Meds Allergies Allergy/AdvReac Type Severity Reaction Status Date / Time Penicillins Allergy Unknown Unknown Verified 08/24/23 07:53 morphine AdvReac Anxiety Verified 08/24/23 07:53 Home Medications Medication Instructions Recorded Confirmed Last Taken Type cyclobenzaprine 5 mg tablet 5 mg PO BEDTIME PRN Muscle Pain 04/09/23 08/24/23 08/23/23 History folic acid 1 mg tablet 1 mg PO DAILY 04/09/23 08/24/23 08/23/23 History hydroxyzine pamoate 25 mg capsule 25 - 50 mg PO BEDTIME PRN Insomnia 04/09/23 08/24/23 08/23/23 History ibuprofen 600 mg tablet 600 mg PO TID PRN Pain 04/09/23 08/24/23 07/23/23 History ondansetron 4 mg disintegrating 4 mg PO TID PRN Nausea 04/09/23 08/24/23 08/24/23 05:45 History tablet oxycodone 5 mg tablet 10 mg PO 4-5XD PRN Pain (Scale 04/09/23 08/24/23 08/24/23 05:45 History Score 4-6) pantoprazole 40 mg tablet,delayed 40 mg PO DAILY 04/09/23 08/24/23 08/23/23 History release amitriptyline 25 mg tablet 25 mg PO BEDTIME 06/11/23 08/24/23 08/23/23 History amitriptyline 50 mg tablet 50 mg PO BEDTIME 07/17/23 08/24/23 08/23/23 History Exam Exam Date and Time: August 23, 2023 1021 Height,Weight and Vital Signs: Height 5 ft 4 in Weight 86.636 kg Assessment and Plan Assessment Anesthesia Assessment: Chart Reviewed Final Anesthetic Review Family History of Problems with Anesthesia: No History of Problems with Anesthesia: No Documented by User: Jessica Martinez MD 08/24/23 10:11 [facility] Active Problems Active Problems: All Active Problems (Updated 08/24/23 @ 08:40 by Jessica Martinez MD) Sacroiliac joint pain (Acute) Bilateral hip pain (Acute) Chronic pain syndrome (Acute) Lumbar radicular pain (Acute) Lumbosacral spondylosis (Acute) Lumbar degenerative disc disease (Acute) Failed back syndrome of lumbar spine (Acute) Past Medical History Medical History Nausea Fibromyalgia Cannabis abuse, daily use Osteoarthritis Lumbar degenerative disc disease Cholelithiasis Major depressive disorder Failed back syndrome of lumbar spine Chronic pain associated with significant psychosocial dysfunction Low back pain Chronic GERD Surgical History Surgical History History of back surgery Social History Social History Alcohol intake: current Alcohol intake frequency: holidays/special occasions only Patient Tobacco Use Status: Never used Tobacco Use of substances other than those prescribed or required for medical reasons: Yes Substance Use Type Other:: Smokes Marijuana Daily Substance Use Frequency: Daily Are you DNR?: No Advance Directives: No Advance Directives Information Provided: Yes Advance Directives on File: No Recently lost weight without trying: No Nutrition Risks: No Nutritional Risk Patient : No Meds Allergies Allergy/AdvReac Type Severity Reaction Status Date / Time Penicillins Allergy Unknown Unknown Verified 08/24/23 07:53 morphine AdvReac Anxiety Verified 08/24/23 07:53 Home Medications Medication Instructions Recorded Confirmed Last Taken Type cyclobenzaprine 5 mg tablet 5 mg PO BEDTIME PRN Muscle Pain 04/09/23 08/24/23 08/23/23 History folic acid 1 mg tablet 1 mg PO DAILY 04/09/23 08/24/23 08/23/23 History hydroxyzine pamoate 25 mg capsule 25 - 50 mg PO BEDTIME PRN Insomnia 04/09/23 08/24/23 08/23/23 History ibuprofen 600 mg tablet 600 mg PO TID PRN Pain 04/09/23 08/24/23 07/23/23 History ondansetron 4 mg disintegrating 4 mg PO TID PRN Nausea 04/09/23 08/24/23 08/24/23 05:45 History tablet oxycodone 5 mg tablet 10 mg PO 4-5XD PRN Pain (Scale 04/09/23 08/24/23 08/24/23 05:45 History Score 4-6) pantoprazole 40 mg tablet,delayed 40 mg PO DAILY 04/09/23 08/24/23 08/23/23 History release amitriptyline 25 mg tablet 25 mg PO BEDTIME 06/11/23 08/24/23 08/23/23 History amitriptyline 50 mg tablet 50 mg PO BEDTIME 07/17/23 08/24/23 08/23/23 History Exam Height,Weight and Vital Signs: Height 5 ft 4 in Weight 86.636 kg Vital Signs Temp Pulse Resp BP Pulse Ox O2 Del Method 98.1 F 89 16 120/81 97 Room Air 08/24/23 08:10 08/24/23 08:10 08/24/23 08:10 08/24/23 08:10 08/24/23 08:10 08/24/23 08:10 Pertinent Lab Results Pertinent Lab Results: Lab Results 08/24/23 Range/Units 07:40 Urine Test NEGATIVE (NEGATIVE) Airway Mallampati Class: II TM Dist: >3cm Neck ROM: Full Loose/Missing/Broken Teeth: No (Denies broken, loose, missing teeth) Heart: RRR Lungs: CTAB Assessment and Plan Assessment Anesthesia Assessment: Anesthesia Plan Discussed Final Anesthetic Review NPO: Yes ASA Class: II Final Preanesthetic Review: No Changes in Pt Med Stat, Meds/Allgs Chart Reviewed, Consent Obtained/Reviewed and Anes Risks/Benef Reviewed Patient Risk: Intermediate Procedure Risk: Low Assessment/Block/Sedation in SS: Assess/Block/Sedation-SS Anesthetic Plan Anesthetic Plan: MAC: Disposition: Standard PACU
--- NOTE | ~2023-08-24 | FL_ITS ---
EXAMINATION: XR FLUOROSCOPY WITH IMAGES CLINICAL INFORMATION: Hip steroid injection, right. COMPARISON: None available. TECHNIQUE: Fluoroscopy Supervised By: Dr. Joseph Roman. Fluoroscopy Time: 0.2 minutes. Cumulative Dose: 15.9 mGy. DAP: 3.79 Gycm2. Images: 1. FINDINGS: Image demonstrates needle placement and contrast injection of the right hip joint FL/FL guidance in OR IMPRESSION: Fluoroscopy guidance for pain management procedure
[2023-08-24 07:38] VITALS: BMI 31.4
[2023-08-24 08:08] LABS: UPreg QC Valid YES; Urine Pregnancy NEGATIVE (NEGATIVE)
[2023-08-24] MEDS: Lactated Ringers 1,000 ML 100 ML IVCONT (08:08)
[2023-08-24 08:10] VITALS: BP 120/81; PULSE 89; RESP 16; TEMP 36.7; O2SAT 97
--- NOTE | 2023-08-24 09:06 | P.HPSUR_ITS ---
Pre-Procedural Eval Section A Date of Service: 08/24/23 The patient is an INPATIENT: No Changes since office visit: Yes Patient answered all questions The History & Physical has been completed within 30 days and I have reviewed it.: No Section B Chief Complaint: Right and Left hip pain Details of Present Illness: right hip OA right hip pain Relevant Family History (Specify if Yes): No Relevant Social History: None Present Medications: see Short Stay Collaborative assessment Medical History: No relevant PMH History of Previous Operations: No relevant previous surgery Allergies: Allergies Allergy/AdvReac Type Severity Reaction Status Date / Time Penicillins Allergy Unknown Unknown Verified 08/24/23 07:53 morphine AdvReac Anxiety Verified 08/24/23 07:53 Review of Systems Sugical H&P ROS: Negative: Cardiovascular, Respiratory, Neurological, Psychiatric, Hem-Onc, Allergic/Immunologic, Gastrointestinal, Genitourinary, Musculoskeletal, Integumentary, Endocrine and Eyes/Ears/Nose/Throat and Yes, Specify: Constitution (obesity) Exam Surgical H&P Exam: Normal: HEENT, Normal: Heart, Normal: Lungs, Normal: E xtremities, Normal: Abdomen, Normal: Skin and Normal: Neurological Plan Diagnosis/Plan: Unchanged I have reviewed the history and physical and performed a pertinent physical examination on my patient. No changes have occurred unless specified. Time Spent With Patient Time: Total time managing care of this patient today ____ minutes.
--- NOTE | 2023-08-24 09:46 | P.BOP_ITS ---
Brief Operative Note Date of Service: 08/24/23 Pre-op diagnosis: right hip pain, right hip OA Post-op diagnosis: same Procedure: right hip steroid injection Surgeon: Joseph Roman MD Anesthesia: MAC Was an Manager Financial Reporting used for this Procedure?: No Estimated blood loss (mL): 1 Condition: stable Disposition: PACU
--- NOTE | 2023-08-24 09:48 | W.PM.OPN ---
Operative Note Operative Note Date of Service: 08/24/23 Narrative: right hip steroid injection. Informed consent was explained to the patient. All questions were explained and answered.? The patient was taken inside of the operating room where she was positioned left lateral decubitus on operating table.. ASA m-rs were applied and the patient was sedated. Time-out was performed delineating patient's name and date of , correct site, side, the nature of the procedure, patient's allergy, preoperative antibiotic if needed, need for VT prophylaxis..? All operating room staff was participating in OR time-out procedure. Right hip area of the patient was prepped with ChloraPrep and draped with sterile towels.? C-arm was brought over the operating field and picture of left and right lateral views of the bilateral hip joints were delineated on the screen.? The smaller joint silhouette was chosen as the target. ? Projection of the?right trochanter to the skin was chosen as the initial needle insertion point.? After that the skin and subcutaneous tissues was anesthetized with 2% lidocaine 2.5 mL.? 22 gauge 5 in long needle was inserted through the skin and started to advance to the joint space under intermittent lateral and? anterior posterior views.? When needle entered the capsule of the joint small amount of the contrast was injected delineating intra-articular space.? After that treatment solution containing 4 cc of bupivacaine 0.5% and 40 mg of Kenalog was injected into the joint.? The needle was withdrawn sterile dressing was applied.The patient tolerated procedure well.
[2023-08-24 09:50] VITALS: BP 97/57; PULSE 86; RESP 17; TEMP 36.6; O2SAT 96
[2023-08-24 10:05] VITALS: BP 124/80; PULSE 82; RESP 18; O2SAT 100
== END 2023-08-24 10:37 | disposition home or self-care (01) ==
PROVIDERS: Registered Nurse Emergency; PCP Nurse Practitioner Family; Visit Provider Anesthesiology
PROC: (CPT 20610; principal; 2023-08-24 09:10)
DX: M25.551 Pain in right hip (principal); M16.11 Unilateral primary osteoarthritis, right hip; G89.4 Chronic pain syndrome; M96.1 Postlaminectomy syndrome, not elsewhere classified; M47.817 Spondylosis without myelopathy or radiculopathy, lumbosacral region; M54.16 Radiculopathy, lumbar region; M53.3 Sacrococcygeal disorders, not elsewhere classified; Z98.1 Arthrodesis status; K21.9 Gastro-esophageal reflux disease without esophagitis; F32.A Depression, unspecified; Z88.0 Allergy status to penicillin; Z88.5 Allergy status to narcotic agent
CPT/HCPCS: 20610; 81025; J2795; J3301; Q9967

== ENCOUNTER → 2023-08-24 07:29 | Outpatient (BNV) | payer MEDICAID, SELFPAY | PROVIDERS: PCP Nurse Practitioner Family; Visit Provider Anesthesiology | DX: M25.551 Pain in right hip (principal) | CPT/HCPCS: 20610; 77002 ==

== ENCOUNTER 2023-10-09 13:34 | Outpatient (AMB) | payer MEDICAID, SELFPAY ==
--- NOTE | 2023-10-09 13:35 | A.OFFVIS_ITS ---
Intake Vital Signs 10/09/23 13:35 Height 5 ft 4 in BMI Reason not done Patient refused/unable Intake Visit Reasons: S/p Thera (R) Hip Intra-Artic Steroid Inj 08/24/23 Reed Dipper Required: No Accompanied by: Spouse Allergies Penicillins Allergy (Unknown, Verified 10/09/23 13:36) Unknown morphine Adverse Reaction (Verified 10/09/23 13:36) Anxiety HPI HPI Comments History of Present Illness Details Patient presents today for follow up to assess response to right intra- articular hip steroid injection on 08/24/[address] Roman. Patient reports less than 30% pain relief for her right hip area since procedure without significant improvement in her mobility, functioning, ADLs and sleep. Patient reports flare up of her lower back and hip areas since injection. Reports significant skin tenderness in the projection of injection sites. She rates her pain at 9/10. Patient also reports her right hip has been popping out since yesterday. She was not able to start opioid titration for potential ITDD implant. Patient passed Behavioral evaluation and had good results with ITDD trial on Dilaudid. Reports recent cough and cold symptoms but no other significant changes in medical history since last office visit. Patient denies any bladder or bowel incontinence or saddle anesthesia. Past Procedures: 08/24/23: Right Hip Intra-Articular Ster oid injection-30% pain relief 06/15/23: Caudal ADDY with catheter: 0% p ain relief, made pain worse 04/19/23: Right Hip Intra-Articular Ster oid injection-90% ongoing pain relief PRIOR: Patient is a 37 years old female with history of post laminectomy syndrome of lumbar spine, lumbar spine fusion L5-S1, chronic pain of his significant psychosocial dysfunction, depression, elevated STEPHANIE, obesity presents today with lower back pain radiating to her bilateral lateral hips and lower extremities laterally. Denies any recent trauma, injury, or falls. This has been chronic pain for the past 16 years and has been progressively getting worse. Pain affects her daily functioning, mobility, mood, sleep, social interactions and quality of life. Patient became tearful as she described her inadequate sleep for a very long time due to intractable pain in her lower back and difficulty finding the right positioning for comfort. Patient recently completed lumbar spine MRI which revealed new L4-L5 mild broad-based disc bulge with an extra foraminal protrusion and annular fissure. [id number] right and minimal left foraminal narrowing. Patient was recommended by her provider at [facility] to get a new spine injection which patient elected against that due to ineffective injections in the past. Currently patient is taking oxycodone which only partially alleviate her chronic back pain . I have informed patient that our office currently does not offer opioid prescribing. She was referred to us for potential spinal cord stimulator or intrathecal pump for for a more sustained pain relief. Patient is agreeable to both trials, SCS and ITDD trials, therefore I will submit referral for Behavioral Assessment today. We discussed alternative options, risk and benefits for both interventional therapies and I have provided patient and her is informational booklet today. She is also interested to get right hip intra-articular steroid and caudal ADDY with catheter injections under sedation. Patient reports she has tried physical therapy and back injections in the past and has not gained significant pain relief or improved functioning. She denies any fever, weight changes, abdominal or groin pain, bladder or bowel incontinence or saddle anesthesia. Location Low back pain and bilateral hip pain Duration Chronic back pain x16 years, progressively getting worse Characteristics of symptom or complaint Aching, spasming, tingling, shooting, shock-like, throbbing, stabbing Aggravating or associated factors Walking, standing, prolonged sitting, changing positioning, weather changes Relieving factors Oxycodone, cyclobenzaprine, amitriptyline, gabapentin, heat therapy Treatment PT, back injections, back surgery in 2008 [facility] Medical History Nausea Fibromyalgia Cannabis abuse, daily use Osteoarthritis Lumbar degenerative disc disease Cholelithiasis Major depressive disorder Failed back syndrome of lumbar spine Chronic pain associated with significant psychosocial dysfunction Low back pain Chronic GERD Surgical History History of back surgery Social History Alcohol intake: current Alcohol intake frequency: holidays/special occasions only Comment: NO COUNT NEEDED Patient Tobacco Use Status: Never used Tobacco Review of Systems Const All systems reviewed & are unremarkable except as noted in HPI and below ENT Reports Normal hearing present Neuro Reports Normal hearing present and Denies confusion Psych Denies confusion Physical Exam Const General: cooperative, alert and awake; No confusion Orientation/consciousness: patient oriented x3 and No confusion Resp Effort & Inspection: able to speak in complete sentences, no audible wheezes and no cough Neuro General: patient oriented x3 and No confusion Cranial nerves: Yes Normal hearing present Cognition (Neuro): normal cognition Psych Mental Status: mental status grossly normal Speech and movement: Clear speech present Affect: normal affect Attitude: cooperative Thought process: Normal thought process present Thought content: Normal thought content present and No Depressive thoughts present Insight: Good insight present (Psych) Judgement: Good judgement present (Psych) Assessment & Plan Assessment & Plan (1) Failed back syndrome of lumbar spine: Code(s): M96.1 - Postlaminectomy syndrome, not elsewhere classified (2) Lumbosacral spondylosis: Code(s): M47.817 - Spondylosis without myelopathy or radiculopathy, lumbosacral region (3) Chronic pain syndrome: Code(s): G89.4 - Chronic pain syndrome (4) Bilateral hip pain: Code(s): M25.551 - Pain in right hip; M25.552 - Pain in left hip (5) Lumbar degenerative disc disease: Code(s): M51.36 - Other intervertebral disc degeneration, lumbar region Plan 1. Patient with minimal pain relief status post right hip intra-articular steroid injection for hip pain. 2. Patient was not able to start opioid titration due to recent flare up in her pain generators. She had good results with ITDD trial with Dilaudid with improved functioning and mobility. Patient plans to start opioid titration after holidays and will notify our office when she stops taking opioids. All questions and concerns have been answered and the patient agreed with the plan. Follow up as needed. I hereby testify that I spent 11 minutes in conversation with this patient as well as with planning and coordinating care for this patient and organizing this note. Telehealth Telehealth Location of provider rendering services: practice address Location of patient: address on file Patient Identification confirmed using: Name, : Yes Telehealth method: voice only Patient verbally consented to treatment: Yes Patient verbally consented to billing insurance company: Yes Patient informed of any privacy concerns related to visit: Yes Minutes spent on Phone/Video with Pt.: 11 Coding Level of Care Code Tele Est Pt Level 3 (56595) Diagnoses Failed back syndrome of lumbar spine M96.1 Lumbosacral spondylosis M47.817 Chronic pain syndrome G89.4 Bilateral hip pain M25.551; M25.552 Lumbar degenerative disc disease M51.36
== END 2023-10-09 13:51 | disposition home or self-care (01) ==
LOC: HO.PMC 13:34
PROVIDERS: PCP Nurse Practitioner Family; Visit Provider Nurse Practitioner Family
DX: M96.1 Postlaminectomy syndrome, not elsewhere classified (principal); M47.817 Spondylosis without myelopathy or radiculopathy, lumbosacral region; G89.4 Chronic pain syndrome; M25.551 Pain in right hip; M25.552 Pain in left hip; M51.36 Other intervertebral disc degeneration, lumbar region
CPT/HCPCS: 99213

== ENCOUNTER → 2023-10-09 13:34 | Outpatient (BNVA) | payer MEDICAID, SELFPAY | PROVIDERS: PCP Nurse Practitioner Family; Visit Provider Nurse Practitioner Family ==

== ENCOUNTER 2024-02-22 07:48 | Day surgery (SDC) | payer MEDICAID, SELFPAY ==
--- NOTE | 2024-02-20 15:05 | P.CONAN_ITS ---
Documented by User: Allyssa Mena NP 02/20/24 15:06 HPI - Anesthesia Eval Consult details Narrative: 38yo F for Intrathecal Drug Delivery Implant s/p hip injection 08/2023 with TIVA PMFSH Active Problems Active Problems: All Active Problems Sacroiliac joint pain (Acute) Bilateral hip pain (Acute) Chronic pain syndrome (Acute) Lumbar radicular pain (Acute) Lumbosacral spondylosis (Acute) Lumbar degenerative disc disease (Acute) Failed back syndrome of lumbar spine (Acute) Past Medical History Medical History (Updated 02/20/24 @ 16:33 by Carmina Arias RN) Hip pain, right Nausea Fibromyalgia Cannabis abuse, daily use Osteoarthritis Lumbar degenerative disc disease Cholelithiasis Major depressive disorder Failed back syndrome of lumbar spine Chronic pain associated with significant psychosocial dysfunction Low back pain Chronic GERD Family History Family history of problems with anesthesia: No Surgical History Surgical History (Updated 02/20/24 @ 16:16 by Carmina Arias RN) History of back surgery (~2008) History of Problems with Anesthesia: No Social History Social History Are you a primary human services care specialist to a significant other at home: Yes (children) Do you presently have visiting nurse or other home services: No Alcohol intake: current Alcohol intake frequency: holidays/special occasions only Comment: NO COUNT NEEDED Patient Tobacco Use Status: Never used Tobacco Use of substances other than those prescribed or required for medical reasons: Yes Substance Use Frequency: Daily Are you DNR?: No Advance Directives: No Advance Directives Information Provided: Yes Advance Directives on File: No Patient : No FDLMP: unknown : No Poor oral hygiene: No Meds Allergies Allergy/AdvReac Type Severity Reaction Status Date / Time Penicillins Allergy Unknown Rash Verified 02/20/24 16:15 morphine AdvReac Unknown Anxiety, Verified 02/20/24 16:15 lethargy Home Medications ?Medication ?Instructions ?Recorded ?Confirmed ?Last Taken ?Type cyclobenzaprine 5 mg tablet 5 mg PO BID PRN Muscle Pain 04/09/23 02/20/24 08/23/23 History folic acid 1 mg tablet 1 mg PO DAILY 04/09/23 02/20/24 08/23/23 History hydroxyzine pamoate 25 mg capsule 25 - 50 mg PO BEDTIME PRN Insomnia 04/09/23 02/20/24 08/23/23 History ibuprofen 600 mg tablet 600 mg PO TID PRN Pain 04/09/23 02/20/24 02/17/24 History ondansetron 4 mg disintegrating 4 mg PO TID PRN Nausea 04/09/23 02/20/24 08/24/23 05:45 History tablet pantoprazole 40 mg tablet,delayed 40 mg PO BEDTIME 04/09/23 02/20/24 08/23/23 History release amitriptyline 50 mg tablet 100 mg PO BEDTIME 07/17/23 02/20/24 08/23/23 History meloxicam 15 mg tablet 15 mg PO QAM 02/20/24 02/20/24 02/14/24 History Assessment and Plan Assessment Anesthesia Assessment: Chart Reviewed Final Anesthetic Review Family History of Problems with Anesthesia: No History of Problems with Anesthesia: No Documented by User: Yana Franco MD 02/22/24 09:49 [facility] Past Medical History Medical History (Updated 02/20/24 @ 16:33 by Carmina Arias, ADAM) Hip pain, right Nausea Fibromyalgia Cannabis abuse, daily use Osteoarthritis Lumbar degenerative disc disease Cholelithiasis Major depressive disorder Failed back syndrome of lumbar spine Chronic pain associated with significant psychosocial dysfunction Low back pain Chronic GERD Surgical History Surgical History (Updated 02/20/24 @ 16:16 by Carmina Arias, RN) History of back surgery (~2008) Social History Social History Are you a primary human services care specialist to a significant other at home: Yes (children) Do you presently have visiting nurse or other home services: No Alcohol intake: current Alcohol intake frequency: holidays/special occasions only Comment: NO COUNT NEEDED Patient Tobacco Use Status: Never used Tobacco Use of substances other than those prescribed or required for medical reasons: Yes Substance Use Frequency: Daily Are you DNR?: No Advance Directives: No Advance Directives Information Provided: Yes Advance Directives on File: No Patient : No FDLMP: unknown : No Poor oral hygiene: No Meds Allergies Allergy/AdvReac Type Severity Reaction Status Date / Time Penicillins Allergy Unknown Rash Verified 02/20/24 16:15 morphine AdvReac Unknown Anxiety, Verified 02/20/24 16:15 lethargy Home Medications ?Medication ?Instructions ?Recorded ?Confirmed ?Last Taken ?Type cyclobenzaprine 5 mg tablet 5 mg PO BID PRN Muscle Pain 04/09/23 02/20/24 08/23/23 History folic acid 1 mg tablet 1 mg PO DAILY 04/09/23 02/20/24 08/23/23 History hydroxyzine pamoate 25 mg capsule 25 - 50 mg PO BEDTIME PRN Insomnia 04/09/23 02/20/24 08/23/23 History ibuprofen 600 mg tablet 600 mg PO TID PRN Pain 04/09/23 02/20/24 02/17/24 History ondansetron 4 mg disintegrating 4 mg PO TID PRN Nausea 04/09/23 02/20/24 08/24/23 05:45 History tablet pantoprazole 40 mg tablet,delayed 40 mg PO BEDTIME 04/09/23 02/20/24 08/23/23 History release amitriptyline 50 mg tablet 100 mg PO BEDTIME 07/17/23 02/20/24 08/23/23 History meloxicam 15 mg tablet 15 mg PO QAM 02/20/24 02/20/24 02/14/24 History Exam Airway Mallampati Class: II TM Dist: >3cm Neck ROM: Full Assessment and Plan Assessment Anesthesia Assessment: Anesthesia Plan Discussed Final Anesthetic Review NPO: Yes ASA Class: II Final Preanesthetic Review: No Changes in Pt Med Stat, Meds/Allgs Chart Reviewe d, Consent Obtained/Reviewed and Anes Risks/Benef Reviewed Patient Risk: Low Procedure Risk: Low Anesthetic Plan Anesthetic Plan: GA Disposition: Standard PACU
[2024-02-20 16:27] VITALS: BMI 31.4
[2024-02-22] VITALS (13 sets, daily range): BP systolic 113–168; BP diastolic 80–105; PULSE 79–125; RESP 13–18; TEMP 36.2–36.6; O2SAT 94–100
--- NOTE | ~2024-02-22 | FL_ITS ---
EXAMINATION: XR FLUOROSCOPY WITH IMAGES CLINICAL INFORMATION: Intrathecal drug delivery implant COMPARISON: 08/24/2023 TECHNIQUE: Fluoroscopy Supervised By: Dr. Roman. Fluoroscopy Time: 0.2 minutes. Cumulative Dose: 15.9 mGy. DAP: 3.79 Gycm2. Images: 1. FINDINGS: Images demonstrate needle projecting over the midline lumbar spine. FL/FL guidance in OR IMPRESSION: Fluoroscopy guidance for pain management procedure.
[2024-02-22 08:22] LABS: UPreg QC Valid YES; Urine Pregnancy NEGATIVE (NEGATIVE)
[2024-02-22] MEDS: Lactated Ringers 1,000 ML 100 ML IVCONT (08:33)
[2024-02-22 10:56] LABS: MRSA Nasal PCR NEGATIVE (Negative); SA Nasal PCR POSITIVE (Negative)
--- NOTE | 2024-02-22 12:05 | P.OP_ITS ---
Operative Note Operative Note Date of Service: 02/22/24 Narrative: Implantation of intrathecal drug delivery system pain pump [employer]. After obtaining informed consent and explaining to the patient risks, benefits and alternatives to treat her pain, the patient was brought up to the operating room where she was positioned supine on the stretcher..? [place] [employer] monitors were applied and General anesthesia with endotracheal intubation was initiated. After that the patient was transferred left lateral decubital position on the operating table. All pressure points were protected, padded. The patient received antibiotic clindamycin 900 mg 30 minutes before incision. Time-out was performed delineating correct site and side of the procedure, name and date of of the patient, risk of fire, need for antibiotic prophylaxis risk of DVT and need for DVT prophylaxis. ? After that the patient?s entire back? and right abdomen and right flank were prepped with Chloraprep and draped with full body drape including ioban film. Sterilely drape C-arm was brought over the OR field and square pictures of the L1, L2, L3 vertebrae were demonstrated on the screen. The entrance point? for the needle and the catheter was chosen as the L1-L2 interspace. In the strict midline fashion 6.5 cm vertical skin incision was made with #10 scalpel. Immediately after the incision multiple subcutaneous arteries located under the dermal layer those arteries were producing jet stream pulsating bleeding. Electrocautery was used 1st to attempt to stop this bleeding however some of the arteries needed to be sutured and ligated with 2.0 Polysorb sutures The incision was widened with the Weitlaner retractor and deepened with electrocautery. Again some brisk bleeding was encountered and required application of electrocautery and some transmitted Polysorb sutures 2.0. The subcutaneous fat tissues were very friable and were easily divided under light application of the force. Also cappilarry bleeding was encountered in the proximal poertion of the wound and electrocautery was applied there. After that the projection of the left L2 lamina to the fascia was chosen as the start of the needle advancement. 16 gauge 10 cm needle was inserted through the fascia and advanced toward the L1-L2 interspace. The needle was advanced to the intrathecal space on anterior posterior and lateral views. When tip of the needle on lateral view was demonstrated in the center of the intrathecal space Intrathecal Ascenda catheter was inserted through the needle and advanced under the x-ray guidance toward the T9 mid body vertebral body projection, Pursestring suture -was applied surrounding? the a needle and it was tied.? After that the needle was withdrawn with care taken to keep the catheter in place. The CSF initially was not seen in the catheter but after application of the valsalva maneuver and aspiration of the catheter using 27 gauge 6 mm needle mounted on the tuberculin syringe free dripping of the CSF was observed from the catheter.? Anchoring device was dislodged on the catheter and advanced until it met prevertebral fascia.? It was engaged on the body of the catheter.? Two anchoring Tycron sutures were used to suture the wings of the catheter to the prevertebral fascia. ?After that the thorough irrigation of the wound was performed and wound was packed with vancomycin soaked 4 x 4. Attention then was concentrated on the patient's right upper abdomen. Sterilely draped C-arm was brought over the operative field again and position of the patient's right rib was demonstrated on the screen.? 3 cm below the projection of the lowest point of the rib o the skin of the local anesthetic lidocaine 2% plus Ropivacaine 0.5% 1-1 was injected in the linear fashion.? After that 10.5 cm incision was performed in patient's? right upper abdomen alongside the injected line. ? Thorough hemostasis was obtained using cautery device. Superficial arteries? with jets pulsing at numerous locations were encountered again and again it required extensive electrocautery and several suture applications Polysorb 2.0. After that the wound was widened and made 3,5 cm deep .? The wound was extended medially and laterally as well as caudally and cranially to form the space to accommodate the body of the pump.? Thorough hemostasis was performed.? The wound was irrigated with vancomycin containing normal saline and then tunneling device was used to connect both wounds and dislodged the intrathecal catheter into the side wound.? Again extensive bleeding was noted in the proximal portion of the midline incision which we were not able to stop with electrocautery. Each time I was applying electrocautery the wound would be getting deeper and the blood continue to come and despite coagulation with electrocautery the bleeding continued. Surgicel was obtained and wound was packed with Surgicel. The blood stopped going in midline incision. The catheter was trimmed appropriately eight centimeters after that and sutureless connection device was mounted on the catheter.? After that sutureless connection device was connected to the pump.? Aspiration of the side port of the pump revealed clear straw-colored flow of CSF.? Two anchoring 0-0 Tycron sutures were applied in most superior lateral most superior medial a corners of the wound.? After that the sutures were connected to the brackets on the body of the pump, intrathecal catheter was gathered behind the body of the pump, the wound was irrigated with vancomycin containing NS and pump was dislodged into the wound.? Again extreme frailty of the subcutaneous fat was noted the pump pocket was formed easily and the subcutaneous fat was spread without any resistance with pressure of the fingers. Anchoring devices were tied? After that noncoring needle was used again to reach side port of the pump again and clear flow of CSF 0.5 mL was demonstrated in the syringe connected to the noncoring needle. ? Thorough irrigation was performed again in both wounds.? Thorough hemostasis was verified.? 0 polisorb sutures were used to close both wounds, 2-0 suture of the same nature were used to approximate the skin.? Again electrocautery was used to arrest the bleeding in subcutaneous tissues. [place] were applied to the skin line in the abdomen and skin was tightened with several silk sutures 0- 0 and some several louis were applied on the midline incision in the back. The Bacitracin ointment was applied to the staple lines.? Sterile dressing with sterile 4x4s was performed, a fixed to the skin with Medipore tape, abdominal binder was applied.? Upon completion of the procedure patient was awaken , extubated and taken outside of the operating room to recovery room for recovery.
--- NOTE | 2024-02-22 15:26 | PM.OP ---
Brief Operative Note Date of Service: 02/22/24 Pre-op diagnosis: Laminectomy syndrome chronic pain syndrome Post-op diagnosis: same Procedure: Implantation of [employer] Intrathecal drug delivery system SynchroMed 2 Implants: SynchroMed 2 intrathecal drug delivery system pain pump and ascend a intrathecal catheter. Surgeon: Joseph Roman MD Anesthesia: GETA Was an Negotiations Director used for this Procedure?: No Estimated blood loss (mL): 400 Condition: stable Disposition: PACU
[2024-02-22] MEDS: fentaNYL citrate/PF 100 MCG/2 ML VIAL 50 MCG IVPUSH ×2 (15:45→16:10)
[2024-02-22] MEDS: oxyCODONE HCl Immed Release 5 MG TABLET 10 MG PO (16:33)
== END 2024-02-22 17:44 | disposition home or self-care (01) ==
PROVIDERS: Nurse Practitioner; Registered Nurse Emergency; PCP Nurse Practitioner Family; Visit Provider Anesthesiology
PROC: (CPT 62362; principal; 2024-02-22 10:30)
DX: M96.1 Postlaminectomy syndrome, not elsewhere classified (principal); M47.817 Spondylosis without myelopathy or radiculopathy, lumbosacral region; G89.4 Chronic pain syndrome; M51.36 Other intervertebral disc degeneration, lumbar region; M54.50 Low back pain, unspecified; M25.551 Pain in right hip; M25.552 Pain in left hip; M79.7 Fibromyalgia; F32.A Depression, unspecified; Z88.0 Allergy status to penicillin; Z88.5 Allergy status to narcotic agent; Z98.890 Other specified postprocedural states
CPT/HCPCS: 62362; 81025; 87640; 87641; C1755; C1772; J0736; J1100; J1170; J2250; J2405; J2704; J2795; J3010; J3370

== ENCOUNTER → 2024-02-22 07:48 | Outpatient (BNV) | payer MEDICAID, SELFPAY | PROVIDERS: PCP Nurse Practitioner Family; Visit Provider Anesthesiology | DX: G89.4 Chronic pain syndrome (principal); M96.1 Postlaminectomy syndrome, not elsewhere classified | CPT/HCPCS: 62362 ==

== ENCOUNTER 2024-02-28 10:12 | Outpatient (AMB) | payer MEDICAID, SELFPAY ==
--- NOTE | 2024-02-28 10:13 | MHC.OFFVIS ---
Vital Signs 02/28/24 10:22 Height 5 ft 4 in Weight 183 lb BMI 31.4 BP 122/88 Blood Pressure Location Lt brachial Position Sitting Respiration 14 Pulse 95 Pulse Source Pulse Oximeter Pulse Oximetry (%) 97 Oxygen Delivery Method Room Air Intake Visit Reasons: S/p ITDD Pain Pump Implant 02/22/24 Intake Note: Patient comes in for post-op appointment. She states she is in alot of pain, feels nauseas and dizziness. Reports pain 04/30. Allergies Penicillins Allergy (Unknown, Verified 02/28/24 10:22) Rash morphine Adverse Reaction (Unknown, Verified 02/28/24 10:22) Anxiety, lethargy HPI Comments Details: Salma is very pleasant 38 years old female who is back in my office after implantation of intrathecal pain pump SynchroMed 2. She reports already good pain relief when she applies the doses of the medication. She reports that the pain relief lasts about 4-5 hours. She denies side effects of administration of the intrathecal boluses no vomiting or nausea, no itching , no somnolence, no urinary retention. Intrathecal pump was interrogated today the procedure described as below. Shortly: I will start her to have 80 micro g of hydromorphone every 5 hours 4 times a day. The dressing was removed today. The wounds were worst. No pathological discharge, no swelling, no redness , minimal tenderness on palpation. The patient is doing very well. Will invite her next week for dressing change, louis most likely will be removed then as well. Past Procedures: 08/24/23: Right Hip Intra-Articular Steroid injection-30% pain relief 06/15/23: Caudal ADDY with catheter: 0% pain relief, made pain worse 04/19/23: Right Hip Intra-Articular Steroid injection-90% ongoing pain relief PRIOR: Patient is a 37 years old female with history of post laminectomy syndrome of lumbar spine, lumbar spine fusion L5-S1, chronic pain of his significant psychosocial dysfunction, depression, elevated STEPHANIE, obesity presents today with lower back pain radiating to her bilateral lateral hips and lower extremities laterally. Denies any recent trauma, injury, or falls. This has been chronic pain for the past 16 years and has been progressively getting worse. Pain affects her daily functioning, mobility, mood, sleep, social interactions and quality of life. Patient became tearful as she described her inadequate sleep for a very long time due to intractable pain in her lower back and difficulty finding the right positioning for comfort. Patient recently completed lumbar spine MRI which revealed new L4-L5 mild broad-based disc bulge with an extra foraminal protrusion and annular fissure. [id number] right and minimal left foraminal narrowing. Patient was recommended by her provider at [facility] to get a new spine injection which patient elected against that due to ineffective injections in the past. Currently patient is taking oxycodone which only partially alleviate her chronic back pain. I have informed patient that our office currently does not offer opioid prescribing. She was referred to us for potential spinal cord stimulator or intrathecal pump for for a more sustained pain relief. Patient is agreeable to both trials, SCS and ITDD trials, therefore I will submit referral for Behavioral Assessment today. We discussed alternative options, risk and benefits for both interventional therapies and I have provided patient and her is informational booklet today. She is also interested to get right hip intra-articular steroid and caudal ADDY with catheter injections under sedation. Patient reports she has tried physical therapy and back injections in the past and has not gained significant pain relief or improved functioning. She denies any fever, weight changes, abdominal or groin pain, bladder or bowel incontinence or saddle anesthesia. Location Low back pain and bilateral hip pain Duration Chronic back pain x16 years, progressively getting worse Characteristics of symptom or complaint Aching, spasming, tingling, shooting, shock-like, throbbing, stabbing Aggravating or associated factors Walking, standing, prolonged sitting, changing positioning, weather changes Relieving factors Oxycodone, cyclobenzaprine, amitriptyline, gabapentin, heat therapy Treatment PT, back injections, back surgery in 2008 [facility] Medical History (Updated 02/20/24 @ 16:33 by Carmina Arias, ADAM) Hip pain, right Nausea Fibromyalgia Cannabis abuse, daily use Osteoarthritis Lumbar degenerative disc disease Cholelithiasis Major depressive disorder Failed back syndrome of lumbar spine Chronic pain associated with significant psychosocial dysfunction Low back pain Chronic GERD Surgical History (Updated 02/20/24 @ 16:16 by Carmina Arias, ADAM) History of back surgery (~2008) Social History 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) Do you presently have visiting nurse or other home services: No Alcohol intake: current Alcohol intake frequency: holidays/special occasions only Comment: NO COUNT NEEDED Patient Tobacco Use Status: Never used Tobacco Review of Systems Const All systems reviewed & are unremarkable except as noted in HPI and below ENT Reports Normal hearing present Neuro Reports Normal hearing present and Denies confusion Psych Denies confusion Physical Exam Vital Signs: Last Vital Signs Pulse 95 02/28/24 10:22 Resp 14 02/28/24 10:22 BP 122/88 02/28/24 10:22 Pulse Ox 97 02/28/24 10:22 Oxygen Delivery Method Room Air 02/28/24 10:22 BMI result Body Mass Index 31.4 Const General: cooperative, alert and awake; No confusion Orientation/consciousness: patient oriented x3 and No confusion Resp Effort & Inspection: able to speak in complete sentences, no audible wheezes and no cough Neuro General: patient oriented x3 and No confusion Cranial nerves: Yes Normal hearing present Cognition (Neuro): normal cognition Psych Mental Status: mental status grossly normal Speech and movement: Clear speech present Affect: normal affect Attitude: cooperative Thought process: Normal thought process present Thought content: Normal thought content present and No Depressive thoughts present Insight: Good insight present (Psych) Judgement: Good judgement present (Psych) Assessment & Plan Assessment & Plan (1) Failed back syndrome of lumbar spine: Code(s): M96.1 - Postlaminectomy syndrome, not elsewhere classified Category: Medical (2) Lumbosacral spondylosis: Code(s): M47.817 - Spondylosis without myelopathy or radiculopathy, lumbosacral region Category: Medical (3) Chronic pain syndrome: Code(s): G89.4 - Chronic pain syndrome Category: Medical (4) Bilateral hip pain: Code(s): M25.551 - Pain in right hip; M25.552 - Pain in left hip Category: Medical (5) Lumbar degenerative disc disease: Code(s): M51.36 - Other intervertebral disc degeneration, lumbar region Category: Medical Plan: Patient was positioned flat in the examination bed. The intrathecal pain pump was interrogated. She has 37.6 cc of medication in her pump. The concentration of the medication is 500 micro g of Dilaudid. The continuous dose remain the same 24.02 micro g in our, the patient will be able to administer herself now for doses of 79.95 micro g of hydromorphone a day. Plan Postlaminectomy syndrome patient. Doing well after intrathecal pain pump. Next appointment in 1 week. The changing of the setting of the pain pump is as above. The patient has naloxone intranasal at home. She and her expressed understanding of knowledge on how to use naloxone. Coding Level of Care Code Est Pt Level 4 (95967) Procedure Only Diagnoses Failed back syndrome of lumbar spine M96.1 Lumbosacral spondylosis M47.817 Chronic pain syndrome G89.4 Bilateral hip pain M25.551; M25.552 Lumbar degenerative disc disease M51.36
[2024-02-28 10:22] VITALS: BP 122/88; PULSE 95; RESP 14; O2SAT 97; BMI 31.4
== END 2024-02-28 11:11 | disposition home or self-care (01) ==
PROVIDERS: PCP Nurse Practitioner Family; Visit Provider Nurse Practitioner Family
DX: Z45.1 Encounter for adjustment and management of infusion pump (principal); M96.1 Postlaminectomy syndrome, not elsewhere classified; M47.817 Spondylosis without myelopathy or radiculopathy, lumbosacral region; G89.4 Chronic pain syndrome; M25.551 Pain in right hip; M25.552 Pain in left hip; M51.36 Other intervertebral disc degeneration, lumbar region
CPT/HCPCS: 62367; 99024

== ENCOUNTER → 2024-02-28 10:12 | Outpatient (BNVA) | payer MEDICAID, SELFPAY | PROVIDERS: PCP Nurse Practitioner Family; Visit Provider Nurse Practitioner Family | DX: M96.1 Postlaminectomy syndrome, not elsewhere classified (principal); M47.817 Spondylosis without myelopathy or radiculopathy, lumbosacral region; M25.551 Pain in right hip; M25.552 Pain in left hip; M51.36 Other intervertebral disc degeneration, lumbar region; G89.4 Chronic pain syndrome; Z96.89 Presence of other specified functional implants | CPT/HCPCS: 62367; 99212 ==

== ENCOUNTER 2024-03-07 09:33 | Outpatient (AMB) | payer MEDICAID, SELFPAY ==
--- NOTE | 2024-03-07 09:39 | MHC.OFFVIS ---
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 Roman. Patient reports over 50-60% ongoing pain relief with ITDD with continuous and breakthrough doses of Dilaudid. She reports pain relief provides her about 4 hours pain relief. She states long driving to this appointment has increased her baseline right sciatica pain but overall chronic pain has significantly improved with pain pump. She denies any untoward or side effects and reports intrathecal route of pain medication has been significantly more beneficial than oral oral oxycodone. Denies any recent cough, cold, infection, fever, nausea, vomiting, dizziness, somnolence, urinary retention, any significant changes in her medical history, medications or recent hospitalizations. The dressings were changed today in the office. Dressings were removed. The three incisional wounds were examined today. They are healing without complications. The wounds were washed with ChloraPrep and sutures and louis were removed today. The wounds are clean, no pathological discharge, no redness, no swelling, no local temperature, no tenderness on palpation. The wounds were washed again with ChloraPrep, Steri-strips and bacitracin ointment with dry sterile dressings were applied. Patient is wearing abdominal binder. PRIOR Dr. Roman 02/28/24: Salma is very pleasant 38 years old female who is back in my office after implantation of intrathecal pain pump SynchroMed 2. She reports already good pain relief when she applies the doses of the medication. She reports that the pain relief lasts about 4-5 hours. She denies side effects of administration of the intrathecal boluses no vomiting or nausea, no itching , no somnolence, no urinary retention. Intrathecal pump was interrogated today the procedure described as below. Shortly: I will start her to have 80 micro g of hydromorphone every 5 hours 4 times a day. The dressing was removed today. The wounds were worst. No pathological discharge, no swelling, no redness , minimal tenderness on palpation. The patient is doing very well. Will invite her next week for dressing change, louis most likely will be removed then as well. Past Procedures: 08/24/23: Right Hip Intra-Articular Steroid injection-30% pain relief 06/15/23: Caudal ADDY with catheter: 0% pain relief, made pain worse 04/19/23: Right Hip Intra-Articular Steroid injection-90% ongoing pain relief PRIOR: Patient is a 37 years old female with history of post laminectomy syndrome of lumbar spine, lumbar spine fusion L5-S1, chronic pain of his significant psychosocial dysfunction, depression, elevated STEPHANIE, obesity presents today with lower back pain radiating to her bilateral lateral hips and lower extremities laterally. Denies any recent trauma, injury, or falls. This has been chronic pain for the past 16 years and has been progressively getting worse. Pain affects her daily functioning, mobility, mood, sleep, social interactions and quality of life. Patient became tearful as she described her inadequate sleep for a very long time due to intractable pain in her lower back and difficulty finding the right positioning for comfort. Patient recently completed lumbar spine MRI which revealed new L4-L5 mild broad-based disc bulge with an extra foraminal protrusion and annular fissure. [id number] right and minimal left foraminal narrowing. Patient was recommended by her provider at [facility] to get a new spine injection which patient elected against that due to ineffective injections in the past. Currently patient is taking oxycodone which only partially alleviate her chronic back pain. I have informed patient that our office currently does not offer opioid prescribing. She was referred to us for potential spinal cord stimulator or intrathecal pump for for a more sustained pain relief. Patient is agreeable to both trials, SCS and ITDD trials, therefore I will submit referral for Behavioral Assessment today. We discussed alternative options, risk and benefits for both interventional therapies and I have provided patient and her is informational booklet today. She is also interested to get right hip intra-articular steroid and caudal ADDY with catheter injections under sedation. Patient reports she has tried physical therapy and back injections in the past and has not gained significant pain relief or improved functioning. She denies any fever, weight changes, abdominal or groin pain, bladder or bowel incontinence or saddle anesthesia. Location Low back pain and bilateral hip pain Duration Chronic back pain x16 years, progressively getting worse Characteristics of symptom or complaint Aching, spasming, tingling, shooting, shock-like, throbbing, stabbing Aggravating or associated factors Walking, standing, prolonged sitting, changing positioning, weather changes Relieving factors Oxycodone, cyclobenzaprine, amitriptyline, gabapentin, heat therapy Treatment PT, back injections, back surgery in 2008 [facility] Medical History Hip pain, right Nausea Fibromyalgia Cannabis abuse, daily use Osteoarthritis Lumbar degenerative disc disease Cholelithiasis Major depressive disorder Failed back syndrome of lumbar spine Chronic pain associated with significant psychosocial dysfunction Low back pain Chronic GERD Surgical History History of back surgery (~2008) Social History Are you a primary wound care coordinator to a significant other at home: Yes (children) Do you presently have visiting nurse or other home services: No Alcohol intake: current Alcohol intake frequency: holidays/special occasions only Comment: NO COUNT NEEDED Patient Tobacco Use Status: Never used Tobacco Review of Systems Const All systems reviewed & are unremarkable except as noted in HPI and below ENT Reports Normal hearing present Neuro Reports Normal hearing present and Denies confusion Psych Denies confusion Physical Exam Vital Signs: Last Vital Signs Pulse 86 03/07/24 09:42 BP 115/71 03/07/24 09:42 Pulse Ox 96 03/07/24 09:42 Oxygen Delivery Method Room Air 03/07/24 09:42 BMI result Body Mass Index 31.4 Const General: cooperative, no acute distress, alert, awake and well groomed; No confusion, ill appearing or tired appearing Nutritional Appearance: obese Orientation/consciousness: patient oriented x3 and No confusion Limitations: no limitations Eyes General: appearance normal, both eyes and all related structures Resp Effort & Inspection: normal respiratory effort, able to speak in complete sentences, no audible wheezes, no cough, no respiratory distress and symmetric chest movement GI Inspection: Yes normal to inspection and Yes obesity Palpation (GI): Soft to palpation, nontender and no guarding Back/Spine/Pelvis Other: 3 incisions to back, flank and right abdomen s/p ITDD placement are healing well Thoracic/Lumbar Spine: thoracic and lumbar spine normal to inspection, Lasegue's sign negative, straight leg raise negative bilaterally, pain with thoraco-lumbar ROM, paraspinal muscle tenderness, thoraco-lumbar ROM limited, No thoracic spinal tenderness and No lumbar spinal tenderness Neuro General: patient oriented x3 and No confusion Cranial nerves: Yes Normal hearing present Cognition (Neuro): normal cognition Extrem General: Yes capillary refill normal, Yes no clubbing, cyanosis or edema and Yes no calf tenderness Psych Appearance: grossly normal and well kempt Mental Status: mental status grossly normal Speech and movement: Normal speech and movement present and Clear speech present Affect: normal affect Attitude: cooperative Thought process: Normal thought process present Thought content: Normal thought content present, suicidality (none), no hallucinations and No Depressive thoughts present Insight: Good insight present (Psych) Judgement: Good judgement present (Psych) Results Reviewed Results Reviewed: Assessment & Plan Assessment & Plan (1) Failed back syndrome of lumbar spine: Code(s): M96.1 - Postlaminectomy syndrome, not elsewhere classified Category: Medical (2) Lumbosacral spondylosis: Code(s): M47.817 - Spondylosis without myelopathy or radiculopathy, lumbosacral region Category: Medical (3) Chronic pain syndrome: Code(s): G89.4 - Chronic pain syndrome Category: Medical (4) Bilateral hip pain: Code(s): M25.551 - Pain in right hip; M25.552 - Pain in left hip Category: Medical (5) Lumbar degenerative disc disease: Code(s): M51.36 - Other intervertebral disc degeneration, lumbar region Category: Medical Plan Patient presented today 2 weeks s/p Medtronic intrathecal pain pump placement. Suture and louis were removed today, patient tolerated procedure well. Patient reports significant improvement in her chronic pain with continous and prn Dilauded. Her next refill is due with Dr. Roman on 04/17/24. The patient has naloxone intranasal at home. We will continue to work on establishing good pain control for this patient. All questions and concerns have been answered and patient agreed with the plan. Follow up for ITDD refill as scheduled and sooner as needed. Coding Level of Care Code Est Pt Level 3 (11703) Diagnoses Failed back syndrome of lumbar spine M96.1 Lumbosacral spondylosis M47.817 Chronic pain syndrome G89.4 Bilateral hip pain M25.551; M25.552 Lumbar degenerative disc disease M51.36
[2024-03-07 09:42] VITALS: BP 115/71; PULSE 86; O2SAT 96; BMI 31.4
== END 2024-03-07 10:23 | disposition home or self-care (01) ==
PROVIDERS: PCP Nurse Practitioner Family; Visit Provider Nurse Practitioner Family
DX: M96.1 Postlaminectomy syndrome, not elsewhere classified (principal); M47.817 Spondylosis without myelopathy or radiculopathy, lumbosacral region; G89.4 Chronic pain syndrome; M25.551 Pain in right hip; M25.552 Pain in left hip; M51.36 Other intervertebral disc degeneration, lumbar region
CPT/HCPCS: 99213

== ENCOUNTER → 2024-03-07 09:33 | Outpatient (BNVA) | payer MEDICAID, SELFPAY | PROVIDERS: PCP Nurse Practitioner Family; Visit Provider Nurse Practitioner Family | DX: M96.1 Postlaminectomy syndrome, not elsewhere classified (principal); M47.817 Spondylosis without myelopathy or radiculopathy, lumbosacral region; M25.551 Pain in right hip; M25.552 Pain in left hip; M51.36 Other intervertebral disc degeneration, lumbar region; G89.4 Chronic pain syndrome; Z96.89 Presence of other specified functional implants | CPT/HCPCS: 99212 ==

== ENCOUNTER 2024-04-17 10:59 | Outpatient (AMB) | payer MEDICAID, SELFPAY ==
--- NOTE | 2024-04-17 11:33 | MHC.OFFVIS ---
Vital Signs 04/17/24 11:34 Height 5 ft 4 in Weight 198 lb BMI 34.0 BP 160/90 H Blood Pressure Location Lt brachial Position Sitting Respiration 14 Pulse 105 H Pulse Source Pulse Oximeter Pulse Oximetry (%) 93 Oxygen Delivery Method Room Air Intake Visit Reasons: ITDD REFILL Intake Note: Patient comes in for intrathecal medication refill. Reports pain 6/10. 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 She reports good pain relief when she applies the doses of the medication. She reports the medication last 3-4 hours. She states that she would appreciate 1 extra dose of the medication during the daytime. It would be giving her smooth transition through the daytime. She is currently on hydromorphone/Dilaudid 500 micro g per mL. She has 40 mL pump. She is scheduled for refill on 05/05/2024. The pump refill is as below. Past Procedures: 08/24/23: Right Hip Intra-Articular Steroid injection-30% pain relief 06/15/23: Caudal ADDY with catheter: 0% pain relief, made pain worse 04/19/23: Right Hip Intra-Articular Steroid injection-90% ongoing pain relief PRIOR: Patient is a 37 years old female with history of post laminectomy syndrome of lumbar spine, lumbar spine fusion L5-S1, chronic pain of his significant psychosocial dysfunction, depression, elevated STEPHANIE, obesity presents today with lower back pain radiating to her bilateral lateral hips and lower extremities laterally. Denies any recent trauma, injury, or falls. This has been chronic pain for the past 16 years and has been progressively getting worse. Pain affects her daily functioning, mobility, mood, sleep, social interactions and quality of life. Patient became tearful as she described her inadequate sleep for a very long time due to intractable pain in her lower back and difficulty finding the right positioning for comfort. Patient recently completed lumbar spine MRI which revealed new L4-L5 mild broad-based disc bulge with an extra foraminal protrusion and annular fissure. [id number] right and minimal left foraminal narrowing. Patient was recommended by her provider at [facility] to get a new spine injection which patient elected against that due to ineffective injections in the past. Currently patient is taking oxycodone which only partially alleviate her chronic back pain. I have informed patient that our office currently does not offer opioid prescribing. She was referred to us for potential spinal cord stimulator or intrathecal pump for for a more sustained pain relief. Patient is agreeable to both trials, SCS and ITDD trials, therefore I will submit referral for Behavioral Assessment today. We discussed alternative options, risk and benefits for both interventional therapies and I have provided patient and her is informational booklet today. She is also interested to get right hip intra-articular steroid and caudal ADDY with catheter injections under sedation. Patient reports she has tried physical therapy and back injections in the past and has not gained significant pain relief or improved functioning. She denies any fever, weight changes, abdominal or groin pain, bladder or bowel incontinence or saddle anesthesia. Location Low back pain and bilateral hip pain Duration Chronic back pain x16 years, progressively getting worse Characteristics of symptom or complaint Aching, spasming, tingling, shooting, shock-like, throbbing, stabbing Aggravating or associated factors Walking, standing, prolonged sitting, changing positioning, weather changes Relieving factors Oxycodone, cyclobenzaprine, amitriptyline, gabapentin, heat therapy Treatment PT, back injections, back surgery in 2008 [facility] Medical History Hip pain, right Nausea Fibromyalgia Cannabis abuse, daily use Osteoarthritis Lumbar degenerative disc disease Cholelithiasis Major depressive disorder Failed back syndrome of lumbar spine Chronic pain associated with significant psychosocial dysfunction Low back pain Chronic GERD Surgical History History of back surgery (~2008) Social History Are you a primary day care assistant to a significant other at home: Yes (children) Do you presently have visiting nurse or other home services: No Alcohol intake: current Alcohol intake frequency: holidays/special occasions only Comment: NO COUNT NEEDED Patient Tobacco Use Status: Never used Tobacco Review of Systems Const All systems reviewed & are unremarkable except as noted in HPI and below ENT Reports Normal hearing present Neuro Reports Normal hearing present and Denies confusion Psych Denies confusion Physical Exam Vital Signs: Last Vital Signs Pulse 105 H 04/17/24 11:34 Resp 14 04/17/24 11:34 BP 160/90 H 04/17/24 11:34 Pulse Ox 93 04/17/24 11:34 Oxygen Delivery Method Room Air 04/17/24 11:34 BMI result Body Mass Index 34.0 Const General: cooperative, no acute distress, alert, awake and well groomed; No confusion, ill appearing or tired appearing Nutritional Appearance: obese Orientation/consciousness: patient oriented x3 and No confusion Limitations: no limitations Eyes General: appearance normal, both eyes and all related structures Resp Effort & Inspection: normal respiratory effort, able to speak in complete sentences, no audible wheezes, no cough, no respiratory distress and symmetric chest movement GI Inspection: Yes normal to inspection and Yes obesity Palpation (GI): Soft to palpation, nontender and no guarding Back/Spine/Pelvis Other: 3 incisions to back, flank and right abdomen s/p ITDD placement are healing well Thoracic/Lumbar Spine: thoracic and lumbar spine normal to inspection, Lasegue's sign negative, straight leg raise negative bilaterally, pain with thoraco-lumbar ROM, paraspinal muscle tenderness, thoraco-lumbar ROM limited, No thoracic spinal tenderness and No lumbar spinal tenderness Neuro General: patient oriented x3 and No confusion Cranial nerves: Yes Normal hearing present Cognition (Neuro): normal cognition Extrem General: Yes capillary refill normal, Yes no clubbing, cyanosis or edema and Yes no calf tenderness Psych Appearance: grossly normal and well kempt Mental Status: mental status grossly normal Speech and movement: Normal speech and movement present and Clear speech present Affect: normal affect Attitude: cooperative Thought process: Normal thought process present Thought content: Normal thought content present, suicidality (none), no hallucinations and No Depressive thoughts present Insight: Good insight present (Psych) Judgement: Good judgement present (Psych) Assessment & Plan Assessment & Plan (1) Failed back syndrome of lumbar spine: Code(s): M96.1 - Postlaminectomy syndrome, not elsewhere classified Category: Medical (2) Lumbosacral spondylosis: Code(s): M47.817 - Spondylosis without myelopathy or radiculopathy, lumbosacral region Category: Medical (3) Chronic pain syndrome: Code(s): G89.4 - Chronic pain syndrome Category: Medical Plan: Intrathecal pump refill. THE PATIENT CAME TODAY to the office FOR THE CHANGE OF THE MEDICATION IN her PAIN PUMP. The name and date of were verified and informed consent was obtained for the procedure. ?The pump was interrogated and the residual amount of fluid was found to be 4.7 mL. SHE WAS POSITIONED supine on the bed AND THE AREA OF THE INTRATHECAL PUMP WAS PREPPED WITH CHLORAPREP. The fenestrated drape was sterilely applied over the area of the pump. Sterile gloves were worn and of the aspiration system was assembled containing 2 in 22 gauge noncoring needle, the needle was connected to extension tubing which was connected to the 20 cc sterile syringe. The pain pump was palpated under the skin in the patient's right buttock area. The needle was inserted through the skin and the central plug of the pain pump and fluid was aspirated. The clear fluid was going into the syringe the total amount of the fluid was 5.0 mL .. After that a new batch? of medication was obtained which was hydromorphone/Dilaudid 500 micro g per mL. The admixture was made in 20 cc syringe prepared by [facility] compounding pharmacy. The syringe was connected to the bacterial filter, and then connected to the extension tubing. After that the medication in the syringe was slowly instilled into the pump with aspirations at 15 and 5 cc velazquez.? The pump was reprogrammed for the doses o continuous doses of hydromorphone 24.02 micro g per day, as well as 89.86 micro g of Dilaudid a day bolus duration 11 minutes lockout duration 4 hours 5 boluses per day 5 boluses in 24 hours. (4) Bilateral hip pain: Code(s): M25.551 - Pain in right hip; M25.552 - Pain in left hip Category: Medical (5) Lumbar degenerative disc disease: Code(s): M51.36 - Other intervertebral disc degeneration, lumbar region Category: Medical Plan Patient presents today for intrathecal pain pump refill. She has 40 cc pump located in the right upper quadrant. The procedure of pump refill is as above. Next time she is here I will increase the concentration of her hydromorphone to 750 micro g per mL. Her next pump refill is on or before 05/05/2024. Coding Level of Care Code Est Pt Level 3 (22269) Procedure Only Diagnoses Failed back syndrome of lumbar spine M96.1 Lumbosacral spondylosis M47.817 Chronic pain syndrome G89.4 Bilateral hip pain M25.551; M25.552 Lumbar degenerative disc disease M51.36
[2024-04-17 11:34] VITALS: BP 160/90; PULSE 105; RESP 14; O2SAT 93; BMI 34.0
== END 2024-04-17 12:18 | disposition home or self-care (01) ==
PROVIDERS: PCP Nurse Practitioner Family; Referring Provider Nurse Practitioner Family; Visit Provider Anesthesiology
DX: M96.1 Postlaminectomy syndrome, not elsewhere classified (principal); M47.817 Spondylosis without myelopathy or radiculopathy, lumbosacral region; M25.551 Pain in right hip; G89.4 Chronic pain syndrome; Z45.1 Encounter for adjustment and management of infusion pump
CPT/HCPCS: 62370; 99213

== ENCOUNTER → 2024-04-17 10:59 | Outpatient (BNVA) | payer MEDICAID, SELFPAY | PROVIDERS: PCP Nurse Practitioner Family; Visit Provider Anesthesiology | DX: Z45.89 Encounter for adjustment and management of other implanted devices (principal); M96.1 Postlaminectomy syndrome, not elsewhere classified; M47.817 Spondylosis without myelopathy or radiculopathy, lumbosacral region; M25.551 Pain in right hip; M25.552 Pain in left hip; M51.36 Other intervertebral disc degeneration, lumbar region; G89.4 Chronic pain syndrome | CPT/HCPCS: 62370; 99212 ==

== ENCOUNTER 2024-05-05 13:31 | Outpatient (AMB) | payer MEDICAID, SELFPAY ==
--- NOTE | 2024-05-05 13:41 | MHC.OFFVIS ---
Vital Signs 05/05/24 15:07 Height 5 ft 4 in Weight 198 lb 3 oz BMI 34.0 BP 140/70 H Blood Pressure Location Lt brachial Position Sitting Respiration 16 Pulse 112 H Pulse Source Pulse Oximeter Pulse Oximetry (%) 96 Oxygen Delivery Method Room Air Intake Visit Reasons: ITDD REFILL Intake Note: Patient comes in for intrathecal pain pump medication refill. Reports pain /10. Allergies Penicillins Allergy (Unknown, Verified 05/05/24 15:09) Rash morphine Adverse Reaction (Unknown, Verified 05/05/24 15:09) Anxiety, lethargy HPI Comments Details: Salma is very pleasant 38 years old female who is back in my office after implantation of intrathecal pain pump SynchroMed 2. She reports good pain relief when she applies the doses of the medication. She is able to receive 5 doses of the medication every 4 hours as needed for pain. The pump refill is as below. Next pump refill he will be scheduled in June of 2024. Past Procedures: 08/24/23: Right Hip Intra-Articular Steroid injection-30% pain relief 06/15/23: Caudal ADDY with catheter: 0% pain relief, made pain worse 04/19/23: Right Hip Intra-Articular Steroid injection-90% ongoing pain relief PRIOR: Patient is a 37 years old female with history of post laminectomy syndrome of lumbar spine, lumbar spine fusion L5-S1, chronic pain of his significant psychosocial dysfunction, depression, elevated STEPHANIE, obesity presents today with lower back pain radiating to her bilateral lateral hips and lower extremities laterally. Denies any recent trauma, injury, or falls. This has been chronic pain for the past 16 years and has been progressively getting worse. Pain affects her daily functioning, mobility, mood, sleep, social interactions and quality of life. Patient became tearful as she described her inadequate sleep for a very long time due to intractable pain in her lower back and difficulty finding the right positioning for comfort. Patient recently completed lumbar spine MRI which revealed new L4-L5 mild broad-based disc bulge with an extra foraminal protrusion and annular fissure. [id number] right and minimal left foraminal narrowing. Patient was recommended by her provider at [facility] to get a new spine injection which patient elected against that due to ineffective injections in the past. Currently patient is taking oxycodone which only partially alleviate her chronic back pain. I have informed patient that our office currently does not offer opioid prescribing. She was referred to us for potential spinal cord stimulator or intrathecal pump for for a more sustained pain relief. Patient is agreeable to both trials, SCS and ITDD trials, therefore I will submit referral for Behavioral Assessment today. We discussed alternative options, risk and benefits for both interventional therapies and I have provided patient and her is informational booklet today. She is also interested to get right hip intra-articular steroid and caudal ADDY with catheter injections under sedation. Patient reports she has tried physical therapy and back injections in the past and has not gained significant pain relief or improved functioning. She denies any fever, weight changes, abdominal or groin pain, bladder or bowel incontinence or saddle anesthesia. Location Low back pain and bilateral hip pain Duration Chronic back pain x16 years, progressively getting worse Characteristics of symptom or complaint Aching, spasming, tingling, shooting, shock-like, throbbing, stabbing Aggravating or associated factors Walking, standing, prolonged sitting, changing positioning, weather changes Relieving factors Oxycodone, cyclobenzaprine, amitriptyline, gabapentin, heat therapy Treatment PT, back injections, back surgery in 2008 [facility] Medical History Hip pain, right Nausea Fibromyalgia Cannabis abuse, daily use Osteoarthritis Lumbar degenerative disc disease Cholelithiasis Major depressive disorder Failed back syndrome of lumbar spine Chronic pain associated with significant psychosocial dysfunction Low back pain Chronic GERD Surgical History History of back surgery (~2008) Social History Are you a primary patient care nursing assistant to a significant other at home: Yes (children) Do you presently have visiting nurse or other home services: No Alcohol intake: current Alcohol intake frequency: holidays/special occasions only Comment: NO COUNT NEEDED Patient Tobacco Use Status: Never used Tobacco Review of Systems Const All systems reviewed & are unremarkable except as noted in HPI and below ENT Reports Normal hearing present Neuro Reports Normal hearing present and Denies confusion Psych Denies confusion Physical Exam Vital Signs: Last Vital Signs Pulse 112 H 05/05/24 15:07 Resp 16 05/05/24 15:07 BP 140/70 H 05/05/24 15:07 Pulse Ox 96 05/05/24 15:07 Oxygen Delivery Method Room Air 05/05/24 15:07 BMI result Body Mass Index 34.0 Const General: cooperative, no acute distress, alert, awake and well groomed; No confusion, ill appearing or tired appearing Nutritional Appearance: obese Orientation/consciousness: patient oriented x3 and No confusion Limitations: no limitations Eyes General: appearance normal, both eyes and all related structures Resp Effort & Inspection: normal respiratory effort, able to speak in complete sentences, no audible wheezes, no cough, no respiratory distress and symmetric chest movement GI Inspection: Yes normal to inspection and Yes obesity Palpation (GI): Soft to palpation, nontender and no guarding Back/Spine/Pelvis Other: 3 incisions to back, flank and right abdomen s/p ITDD placement are healing well Thoracic/Lumbar Spine: thoracic and lumbar spine normal to inspection, Lasegue's sign negative, straight leg raise negative bilaterally, pain with thoraco-lumbar ROM, paraspinal muscle tenderness, thoraco-lumbar ROM limited, No thoracic spinal tenderness and No lumbar spinal tenderness Neuro General: patient oriented x3 and No confusion Cranial nerves: Yes Normal hearing present Cognition (Neuro): normal cognition Extrem General: Yes capillary refill normal, Yes no clubbing, cyanosis or edema and Yes no calf tenderness Psych Appearance: grossly normal and well kempt Mental Status: mental status grossly normal Speech and movement: Normal speech and movement present and Clear speech present Affect: normal affect Attitude: cooperative Thought process: Normal thought process present Thought content: Normal thought content present, suicidality (none), no hallucinations and No Depressive thoughts present Insight: Good insight present (Psych) Judgement: Good judgement present (Psych) Assessment & Plan Assessment & Plan (1) Failed back syndrome of lumbar spine: Code(s): M96.1 - Postlaminectomy syndrome, not elsewhere classified Category: Medical (2) Lumbosacral spondylosis: Code(s): M47.817 - Spondylosis without myelopathy or radiculopathy, lumbosacral region Category: Medical (3) Chronic pain syndrome: Code(s): G89.4 - Chronic pain syndrome Category: Medical Plan: Intrathecal pump refill. THE PATIENT CAME TODAY to the office FOR THE CHANGE OF THE MEDICATION IN her PAIN PUMP. The name and date of were verified and informed consent was obtained for the procedure. ?The pump was interrogated and the residual amount of fluid was found to be 3.2 mL. SHE WAS POSITIONED supine on the bed AND THE AREA OF THE INTRATHECAL PUMP WAS PREPPED WITH CHLORAPREP. The fenestrated drape was sterilely applied over the area of the pump. Sterile gloves were worn and of the aspiration system was assembled containing 2 in 22 gauge noncoring needle, the needle was connected to extension tubing which was connected to the 20 cc sterile syringe. The pain pump was palpated under the skin in the patient's right buttock area. The needle was inserted through the skin and the central plug of the pain pump and fluid was aspirated. The clear fluid was going into the syringe the total amount of the fluid was 5.0 mL .. After that a new batch? of medication was obtained which was hydromorphone/Dilaudid 800 micro g per mL. (new concentration) The admixture was made in the 2- 20 cc syringes prepared by [facility] compounding pharmacy. The syringe was connected to the bacterial filter, and then connected to the extension tubing. After that the medication in the syringe was slowly instilled into the pump with aspirations at 15 and 5 cc velazquez.? The pump was reprogrammed for the doses o continuous doses of hydromorphone 38 micro g per day, as well as 89.86 micro g of Dilaudid a day bolus duration 11 minutes lockout duration 4 hours 5 boluses per day 5 boluses in 24 hours. (4) Bilateral hip pain: Code(s): M25.551 - Pain in right hip; M25.552 - Pain in left hip Category: Medical (5) Lumbar degenerative disc disease: Code(s): M51.36 - Other intervertebral disc degeneration, lumbar region Category: Medical Plan Patient presents today for intrathecal pain pump refill. She has 40 cc pump located in the right upper quadrant. The procedure of pump refill is as above. New concentration of the hydromorphone will be 800 micro g per mL. Next refill appointment will be in June. This is 2 months from now. I think it will be appropriate for the patient for now to avoid further escalation of the concentration. If she in the future would like to increase the concentration we can slowly go to 1 milligram/mL. Currently she is very stable and reports good pain relief on current regimen of the hydromorphone. Coding Level of Care Code Est Pt Level 3 (41919) Procedure Only Diagnoses Failed back syndrome of lumbar spine M96.1 Lumbosacral spondylosis M47.817 Chronic pain syndrome G89.4 Bilateral hip pain M25.551; M25.552 Lumbar degenerative disc disease M51.36
[2024-05-05 15:07] VITALS: BP 140/70; PULSE 112; RESP 16; O2SAT 96; BMI 34.0
== END 2024-05-05 14:12 | disposition home or self-care (01) ==
PROVIDERS: PCP Nurse Practitioner Family; Visit Provider Anesthesiology
DX: G89.4 Chronic pain syndrome (principal); M96.1 Postlaminectomy syndrome, not elsewhere classified; M47.817 Spondylosis without myelopathy or radiculopathy, lumbosacral region; M25.551 Pain in right hip; Z45.1 Encounter for adjustment and management of infusion pump; M25.552 Pain in left hip; M51.36 Other intervertebral disc degeneration, lumbar region
CPT/HCPCS: 62370; 99213

== ENCOUNTER → 2024-05-05 13:31 | Outpatient (BNVA) | payer MEDICAID, SELFPAY | PROVIDERS: PCP Nurse Practitioner Family; Visit Provider Anesthesiology | DX: Z45.89 Encounter for adjustment and management of other implanted devices (principal); M96.1 Postlaminectomy syndrome, not elsewhere classified; M47.817 Spondylosis without myelopathy or radiculopathy, lumbosacral region; M25.551 Pain in right hip; M25.552 Pain in left hip; M51.36 Other intervertebral disc degeneration, lumbar region; G89.4 Chronic pain syndrome | CPT/HCPCS: 62370; 99212 ==

== ENCOUNTER 2024-07-07 13:22 | Outpatient (AMB) | payer MEDICAID, SELFPAY ==
--- NOTE | 2024-07-07 13:28 | A.OFFVIS_ITS ---
Vital Signs 07/07/24 13:36 Height 5 ft 4 in Weight 204 lb 2 oz BMI 35.0 BP 121/80 Blood Pressure Location Lt brachial Position Sitting Respiration 16 Pulse 109 H Pulse Source Pulse Oximeter Pulse Oximetry (%) 96 Oxygen Delivery Method Room Air Intake Visit Reasons: ITDD Refill Intake Note: Patient comes in for ITDD pump refill. Reports pain 6/10. Accompanied by: Spouse Allergies Penicillins Allergy (Unknown, Verified 07/07/24 13:38) Rash morphine Adverse Reaction (Unknown, Verified 07/07/24 13:38) Anxiety, lethargy HPI Comments Details: Salma is back in my office today to receive intrathecal pain pump refill. She reported today that she perform some sort of abrupt movement and she felt her pump standing up in her abdomen. I attempted to perform insertion of the noncoring needle for the pump refill blindly and was not able to detect the central plug with my needle. After that I applied ultrasound machine at the area of the pain pump and unfortunately I was not able to see central plug the ultrasound. I will invite this patient for evaluation under x-ray guidance. If her pump is flipped and I will not be able to refill it she needs emergency revision procedure. Past Procedures: 08/24/23: Right Hip Intra-Articular Steroid injection-30% pain relief 06/15/23: Caudal ADDY with catheter: 0% pain relief, made pain worse 04/19/23: Right Hip Intra-Articular Steroid injection-90% ongoing pain relief PRIOR: Patient is a 37 years old female with history of post laminectomy syndrome of lumbar spine, lumbar spine fusion L5-S1, chronic pain of his significant psychosocial dysfunction, depression, elevated STEPHANIE, obesity presents today with lower back pain radiating to her bilateral lateral hips and lower extremities laterally. Denies any recent trauma, injury, or falls. This has been chronic pain for the past 16 years and has been progressively getting worse. Pain affects her daily functioning, mobility, mood, sleep, social interactions and quality of life. Patient became tearful as she described her inadequate sleep for a very long time due to intractable pain in her lower back and difficulty finding the right positioning for comfort. Patient recently completed lumbar spine MRI which revealed new L4-L5 mild broad-based disc bulge with an extra foraminal protrusion and annular fissure. [id number] right and minimal left foraminal narrowing. Patient was recommended by her provider at [facility] to get a new spine injection which patient elected against that due to ineffective injections in the past. Currently guido snider is taking oxycodone which only partially alleviate her chronic back pain. I have informed patient that our office currently does not offer opioid prescribing. She was referred to us for potential spinal cord stimulator or intrathecal pump for for a more sustained pain relief. Patient is agreeable to both trials, SCS and ITDD trials, therefore I will submit referral for Behavioral Assessment today. We discussed alternative options, risk and benefits for both interventional therapies and I have provided patient and her is informational booklet today. She is also interested to get right hip intra-articular steroid and caudal ADDY with catheter injections under sedation. Patient reports she has tried physical therapy and back injections in the past and has not gained significant pain relief or improved functioning. She denies any fever, weight changes, abdominal or groin pain, bladder or bowel incontinence or saddle anesthesia. Location Low back pain and bilateral hip pain Duration Chronic back pain x16 years, progressively getting worse Characteristics of symptom or complaint Aching, spasming, tingling, shooting, shock-like, throbbing, stabbing Aggravating or associated factors Walking, standing, prolonged sitting, changing positioning, weather changes Relieving factors Oxycodone, cyclobenzaprine, amitriptyline, gabapentin, heat therapy Treatment PT, back injections, back surgery in 2008 [facility] Medical History Hip pain, right Nausea Fibromyalgia Cannabis abuse, daily use Osteoarthritis Lumbar degenerative disc disease Cholelithiasis Major depressive disorder Failed back syndrome of lumbar spine Chronic pain associated with significant psychosocial dysfunction Low back pain Chronic GERD Surgical History History of back surgery (~2008) Social History Are you a primary career development coordinator/teacher to a significant other at home: Yes (children) Do you presently have visiting nurse or other home services: No Alcohol intake: current Alcohol intake frequency: holidays/special occasions only Comment: NO COUNT NEEDED Patient Tobacco Use Status: Never used Tobacco Review of Systems Const All systems reviewed & are unremarkable except as noted in HPI and below ENT Reports Normal hearing present Neuro Reports Normal hearing present and Denies confusion Psych Denies confusion Physical Exam Vital Signs: Last Vital Signs Pulse 109 H 07/07/24 13:36 Resp 16 07/07/24 13:36 BP 121/80 07/07/24 13:36 Pulse Ox 96 07/07/24 13:36 Oxygen Delivery Method Room Air 07/07/24 13:36 BMI result Body Mass Index 35.0 Const General: cooperative, no acute distress, alert, awake and well groomed; No confusion, ill appearing or tired appearing Nutritional Appearance: obese Orientation/consciousness: patient oriented x3 and No confusion Limitations: no limitations Eyes General: appearance normal, both eyes and all related structures Resp Effort & Inspection: normal respiratory effort, able to speak in complete sentences, no audible wheezes, no cough, no respiratory distress and symmetric chest movement GI Inspection: Yes normal to inspection and Yes obesity Palpation (GI): Soft to palpation, nontender and no guarding Back/Spine/Pelvis Other: 3 incisions to back, flank and right abdomen s/p ITDD placement are healing well Thoracic/Lumbar Spine: thoracic and lumbar spine normal to inspection, Lasegue's sign negative, straight leg raise negative bilaterally, pain with thoraco-lumbar ROM, paraspinal muscle tenderness, thoraco-lumbar ROM limited, No thoracic spinal tenderness and No lumbar spinal tenderness Neuro General: patient oriented x3 and No confusion Cranial nerves: Yes Normal hearing present Cognition (Neuro): normal cognition Extrem General: Yes capillary refill normal, Yes no clubbing, cyanosis or edema and Yes no calf tenderness Psych Appearance: grossly normal and well kempt Mental Status: mental status grossly normal Speech and movement: Normal speech and movement present and Clear speech present Affect: normal affect Attitude: cooperative Thought process: Normal thought process present Thought content: Normal thought content present, suicidality (none), no hallucinations and No Depressive thoughts present Insight: Good insight present (Psych) Judgement: Good judgement present (Psych) Assessment & Plan Assessment & Plan (1) Failed back syndrome of lumbar spine: Code(s): M96.1 - Postlaminectomy syndrome, not elsewhere classified Category: Medical (2) Lumbosacral spondylosis: Code(s): M47.817 - Spondylosis without myelopathy or radiculopathy, lumbosacral region Category: Medical (3) Chronic pain syndrome: Code(s): G89.4 - Chronic pain syndrome Category: Medical (4) Bilateral hip pain: Code(s): M25.551 - Pain in right hip; M25.552 - Pain in left hip Category: Medical (5) Lumbar degenerative disc disease: Code(s): M51.36 - Other intervertebral disc degeneration, lumbar region Category: Medical Plan Patient presents today for intrathecal pain pump refill. Unfortunately was not able to locate central plug. I used ultrasound and was not able to detect central plug using ultrasound. Possibility exists that she flipped her pain pump. See full description as above. I will invite her tomorrow and attempt to perform pump refill under x-ray guidance. If it is not possible revision needs to be scheduled as soon as possible.. Coding Level of Care Code Est Pt Level 3 (55043) Diagnoses Failed back syndrome of lumbar spine M96.1 Lumbosacral spondylosis M47.817 Chronic pain syndrome G89.4 Bilateral hip pain M25.551; M25.552 Lumbar degenerative disc disease M51.36
[2024-07-07 13:36] VITALS: BP 121/80; PULSE 109; RESP 16; O2SAT 96; BMI 35.0
== END 2024-07-07 14:06 | disposition home or self-care (01) ==
PROVIDERS: PCP Nurse Practitioner Family; Referring Provider Nurse Practitioner Family; Visit Provider Anesthesiology
DX: M96.1 Postlaminectomy syndrome, not elsewhere classified (principal); M47.817 Spondylosis without myelopathy or radiculopathy, lumbosacral region; G89.4 Chronic pain syndrome; M25.551 Pain in right hip; M25.552 Pain in left hip; M51.36 Other intervertebral disc degeneration, lumbar region
CPT/HCPCS: 99213

== ENCOUNTER → 2024-07-07 13:22 | Outpatient (BNVA) | payer MEDICAID, SELFPAY | PROVIDERS: PCP Nurse Practitioner Family; Visit Provider Anesthesiology | DX: Z45.1 Encounter for adjustment and management of infusion pump (principal); M96.1 Postlaminectomy syndrome, not elsewhere classified; M51.36 Other intervertebral disc degeneration, lumbar region; M47.817 Spondylosis without myelopathy or radiculopathy, lumbosacral region; M25.551 Pain in right hip; M25.552 Pain in left hip; G89.4 Chronic pain syndrome | CPT/HCPCS: 99212 ==

== ENCOUNTER 2024-07-08 09:14 | Outpatient (AMB) | payer MEDICAID, SELFPAY ==
[2024-07-08 09:16] VITALS: BP 127/79; PULSE 98; O2SAT 98
--- NOTE | 2024-07-08 09:16 | MHC.OFFVIS ---
Vital Signs 07/08/24 09:16 BP 127/79 Blood Pressure Location Lt brachial Position Sitting Pulse 98 Pulse Source Pulse Oximeter Pulse Oximetry (%) 98 Oxygen Delivery Method Room Air Intake Visit Reasons: Xray ITDD Allergies Penicillins Allergy (Unknown, Verified 07/08/24 11:01) Rash morphine Adverse Reaction (Unknown, Verified 07/08/24 11:01) Anxiety, lethargy [facility] Medical History Hip pain, right Nausea Fibromyalgia Cannabis abuse, daily use Osteoarthritis Lumbar degenerative disc disease Cholelithiasis Major depressive disorder Failed back syndrome of lumbar spine Chronic pain associated with significant psychosocial dysfunction Low back pain Chronic GERD Surgical History History of back surgery (~2008) Social History Are you a primary career and guidance counselor to a significant other at home: Yes (children) Do you presently have visiting nurse or other home services: No Alcohol intake: current Alcohol intake frequency: holidays/special occasions only Comment: NO COUNT NEEDED Patient Tobacco Use Status: Never used Tobacco Physical Exam Vital Signs: Last Vital Signs Pulse 98 07/08/24 09:16 BP 127/79 07/08/24 09:16 Pulse Ox 98 07/08/24 09:16 Oxygen Delivery Method Room Air 07/08/24 09:16 Assessment & Plan Assessment & Plan (1) Malfunction of intrathecal infusion pump: Code(s): T85.615A - Breakdown (mechanical) of other nervous system device, implant or graft, initial encounter Category: Medical Plan Evaluation under fluoroscopy and attempts to refill intrathecal pain pump. The patient came to the operating room and she was positioned supine on operating table. C-arm was brought over the operating field and sq picture of the pump was demonstrated on the screen. The pump appeared to be flipped over with the bottom of the pump exposed. Nevertheless I carefully prepped the area of the pump with ChloraPrep and using strict sterile technique attempted to reach under fluoroscopy guidance the central plug of the pump under fluoroscopy direct vision. My efforts were not successful. Even though the tip of the needle was in projection of the central plug I felt metal resistance to the tip of the needle. The needle withdrawn sterile Band-Aid was applied. The patient will be scheduled for pump revision as soon as possible. Orders: Orders FL guidance in treatment room Today G89.4 - Chronic pain syndrome Coding Level of Care Code Procedure Only Diagnoses Malfunction of intrathecal infusion pump T85.615A
== END 2024-07-08 09:51 | disposition home or self-care (01) ==
LOC: HO.PMCPRC 09:14
PROVIDERS: PCP Nurse Practitioner Family; Visit Provider Anesthesiology
DX: T85.615A Breakdown (mechanical) of other nervous system device, implant or graft, initial encounter (principal); Z45.1 Encounter for adjustment and management of infusion pump
CPT/HCPCS: 77002; 95991

== ENCOUNTER 2024-07-08 09:14 | Outpatient (REF) | payer MEDICAID, SELFPAY ==
--- NOTE | ~2024-07-08 | FL_ITS ---
EXAMINATION: FLUORO GUIDANCE IN TREATMENT ROOM CLINICAL INFORMATION: Chronic pain syndrome, refill pain pump. COMPARISON: None available. TECHNIQUE: Fluoroscopy supervised by: Dr. Joseph Roman. Fluoroscopy time: 0.4 minutes. Cumulative Dose: 13.3 mGy. DAP: 0.124 mGy-m2 (milligray-meter squared). Images: 10. FINDINGS: Stimulator device placement. FL/FL guidance in treatment room IMPRESSION: Fluoroscopy during procedure. Please see procedure report for additional information. Electronically signed by: Chhaya Churchill MD 10/28/2024 01:20 PM [facility]
== END 2024-07-08 09:15 | disposition home or self-care (01) ==
LOC: CF 09:14
PROVIDERS: PCP Nurse Practitioner Family; Visit Provider Anesthesiology
DX: G89.4 Chronic pain syndrome (principal); Z13.89 Encounter for screening for other disorder

== ENCOUNTER → 2024-07-09 12:08 | Outpatient (BNV) | payer MEDICAID, SELFPAY | PROVIDERS: PCP Nurse Practitioner Family; Visit Provider Anesthesiology | DX: T85.695A Other mechanical complication of other nervous system device, implant or graft, initial encounter (principal); G89.4 Chronic pain syndrome | CPT/HCPCS: 62350 ==

== ENCOUNTER → 2024-07-09 12:08 | Day surgery (SDC) | payer MEDICAID, SELFPAY ==
--- NOTE | 2024-07-08 11:53 | P.CONAN_ITS ---
Documented by User: Allyssa Mena NP 07/08/24 11:55 HPI - Anesthesia Eval Consult details Narrative: 39yo F for Revision Intrathecal Drug Implant,with Revision of Catheter s/p implant 02/2024 with GA-ETT 7 PMFSH Active Problems Active Problems: All Active Problems Sacroiliac joint pain (Acute) Bilateral hip pain (Acute) Chronic pain syndrome (Acute) Lumbar radicular pain (Acute) Lumbosacral spondylosis (Acute) Lumbar degenerative disc disease (Acute) Failed back syndrome of lumbar spine (Acute) Past Medical History Medical History Hip pain, right Nausea Fibromyalgia Cannabis abuse, daily use Osteoarthritis Lumbar degenerative disc disease Cholelithiasis Major depressive disorder Failed back syndrome of lumbar spine Chronic pain associated with significant psychosocial dysfunction Low back pain Chronic GERD Family History Family history of problems with anesthesia: No Surgical History Surgical History (Updated 07/09/24 @ 14:08 by Jessica Martinez MD) S/P insertion of intrathecal pump History of back surgery (~2008) History of Problems with Anesthesia: No Social History Social History Are you a primary career technical counselor to a significant other at home: No Do you presently have visiting nurse or other home services: No Alcohol intake: current Alcohol intake frequency: holidays/special occasions only Comment: NO COUNT NEEDED Patient Tobacco Use Status: Never used Tobacco Use of substances other than those prescribed or required for medical reasons: Yes Substance Use Frequency: Daily Have you been hit, kicked, punched, or otherwise hurt by someone within the past year? If so, by whom?: No Are you DNR?: No Advance Directives: No Advance Directives Information Provided: Yes Recently lost weight without trying: No Meds Allergies Allergy/AdvReac Type Severity Reaction Status Date / Time Penicillins Allergy Unknown Rash Verified 07/08/24 11:01 morphine AdvReac Unknown Anxiety, Verified 07/08/24 11:01 lethargy Home Medications ?Medication ?Instructions ?Recorded ?Confirmed ?Last Taken ?Type cyclobenzaprine 5 mg tablet 5 mg PO BID PRN Muscle Pain 04/09/23 02/20/24 08/23/23 History folic acid 1 mg tablet 1 mg PO DAILY 0602/20/24 08/23/23 History hydroxyzine pamoate 25 mg capsule 25 - 50 mg PO BEDTIME PRN Insomnia 04/09/23 02/20/24 08/23/23 History ibuprofen 600 mg tablet 600 mg PO TID PRN Pain 04/09/23 02/20/24 02/17/24 History ondansetron 4 mg disintegrating 4 mg PO TID PRN Nausea 04/09/23 02/20/24 08/24/23 05:45 History tablet pantoprazole 40 mg tablet,delayed 40 mg PO BEDTIME 04/09/23 02/20/24 08/23/23 History release amitriptyline 50 mg tablet 100 mg PO BEDTIME 07/17/23 02/20/24 08/23/23 History meloxicam 15 mg tablet 15 mg PO QAM 02/20/24 02/20/24 02/14/24 History amitriptyline 100 mg tablet 100 mg PO BEDTIME 03/07/24 Unknown History Assessment and Plan Assessment Anesthesia Assessment: Chart Reviewed Final Anesthetic Review Family History of Problems with Anesthesia: No History of Problems with Anesthesia: No Documented by User: Jessica Martinez MD 07/09/24 14:18 [facility] Active Problems Active Problems: All Active Problems Sacroiliac joint pain (Acute) Bilateral hip pain (Acute) Chronic pain syndrome (Acute) Lumbar radicular pain (Acute) Lumbosacral spondylosis (Acute) Lumbar degenerative disc disease (Acute) Failed back syndrome of lumbar spine (Acute) Malfunction of intrathecal drug delivery implant Daily cannabis. Last use yesterday 03/07/24 Past Medical History Medical History Hip pain, right Nausea Fibromyalgia Cannabis abuse, daily use Osteoarthritis Lumbar degenerative disc disease Cholelithiasis Major depressive disorder Failed back syndrome of lumbar spine Chronic pain associated with significant psychosocial dysfunction Low back pain Chronic GERD Family History Family history of problems with anesthesia: No Surgical History Surgical History (Updated 07/09/24 @ 14:08 by Jessica Martinez MD) S/P insertion of intrathecal pump History of back surgery (~2008) History of Problems with Anesthesia: No Social History Social History Are you a primary career technical counselor to a significant other at home: No Do you presently have visiting nurse or other home services: No Alcohol intake: current Alcohol intake frequency: holidays/special occasions only Comment: NO COUNT NEEDED Patient Tobacco Use Status: Never used Tobacco Use of substances other than those prescribed or required for medical reasons: Yes Substance Use Frequency: Daily Have you been hit, kicked, punched, or otherwise hurt by someone within the past year? If so, by whom?: No Are you DNR?: No Advance Directives: No Advance Directives Information Provided: Yes Recently lost weight without trying: No Meds Allergies Allergy/AdvReac Type Severity Reaction Status Date / Time Penicillins Allergy Unknown Rash Verified 07/08/24 11:01 morphine AdvReac Unknown Anxiety, Verified 07/08/24 11:01 lethargy Home Medications ?Medication ?Instructions ?Recorded ?Confirmed ?Last Taken ?Type cyclobenzaprine 5 mg tablet 5 mg PO BID PRN Muscle Pain 04/09/23 02/20/24 08/23/23 History folic acid 1 mg tablet 1 mg PO DAILY 04/09/23 02/20/24 08/23/23 History hydroxyzine pamoate 25 mg capsule 25 - 50 mg PO BEDTIME PRN Insomnia 04/09/23 02/20/24 08/23/23 History ibuprofen 600 mg tablet 600 mg PO TID PRN Pain 04/09/23 02/20/24 02/17/24 History ondansetron 4 mg disintegrating 4 mg PO TID PRN Nausea 04/09/23 02/20/24 08/24/23 05:45 History tablet pantoprazole 40 mg tablet,delayed 40 mg PO BEDTIME 04/09/23 02/20/24 08/23/23 History release amitriptyline 50 mg tablet 100 mg PO BEDTIME 07/17/23 02/20/24 08/23/23 History meloxicam 15 mg tablet 15 mg PO QAM 02/20/24 02/20/24 02/14/24 History amitriptyline 100 mg tablet 100 mg PO BEDTIME 03/07/24 Unknown History Exam Height,Weight and Vital Signs: Height 5 ft 4 in Weight 93.531 kg Vital Signs Temp Pulse Resp BP Pulse Ox O2 Del Method 07/09/24 12:55 98.3 F 84 16 121/69 98 Room Air Pertinent Lab Results Pertinent Lab Results: Lab Results 07/09/24 Range/Units 12:51 Urine Test NEGATIVE (NEGATIVE) Airway Mallampati Class: II TM Dist: >3cm Neck ROM: Full Loose/Missing/Broken Teeth: Yes (Broken tooth top Right back. Denies missing or loose teeth) Heart: RRR Lungs: CTAB Assessment and Plan Assessment Anesthesia Assessment: Anesthesia Plan Discussed and Chart Reviewed Final Anesthetic Review Family History of Problems with Anesthesia: No History of Problems with Anesthesia: No NPO: Yes ASA Class: II Final Preanesthetic Review: No Changes in Pt Med Stat, Meds/Allgs Chart Reviewed, Consent Obtained/Reviewed and Anes Risks/Benef Reviewed Patient Risk: Intermediate Procedure Risk: Low Assessment/Block/Sedation in SS: Assess/Block/Sedation- Anesthetic Plan Anesthetic Plan: GA Disposition: Standard PACU
[2024-07-09] VITALS (15 sets, daily range): BP systolic 100–124; BP diastolic 31–85; PULSE 79–107; RESP 15–22; TEMP 36.4–36.8; O2SAT 96–99; BMI 35.4
[2024-07-09 13:04] LABS: UPreg QC Valid YES; Urine Pregnancy NEGATIVE (NEGATIVE)
[2024-07-09] MEDS: Lactated Ringers 1,000 ML 100 ML IVCONT (13:11)
--- NOTE | 2024-07-09 13:41 | MHC.SHP ---
Pre-Procedural Eval Section A - 24 Hr Update-Section A only Date of Service: 07/09/24 The patient is an INPATIENT: No Changes since office visit: Yes Patient answered all questions The patient has been examined within 24 hours of the surgical procedure. The History & Physical has been completed within 30 days and I have reviewed it.: No Section B - Complete if H&P > 30 days Chief Complaint: Postlaminectomy syndrome,intervertebral disc Details of Present Illness: right hip OA right hip pain Relevant Family History (Specify if Yes): No Relevant Social History: None Present Medications: see Short Stay Collaborative assessment Medical History: No relevant PMH History of Previous Operations: No relevant previous surgery Allergies: Allergies Allergy/AdvReac Type Severity Reaction Status Date / Time Penicillins Allergy Unknown Rash Verified 07/08/24 11:01 morphine AdvReac Unknown Anxiety, Verified 07/08/24 11:01 lethargy Review of Systems Sugical H&P ROS: Negative: Cardiovascular, Respiratory, Neurological, Psychiatric, Hem-Onc, Allergic/Immunologic, Gastrointestinal, Genitourinary, Musculoskeletal, Integumentary, Endocrine and Eyes/Ears/Nose/Throat and Yes, Specify: Constitution (obesity) Exam Surgical H&P Exam: Normal: HEENT, Normal: Heart, Normal: Lungs, Normal: Extremities, Normal: Abdomen, Normal: Skin and Normal: Neurological Plan Diagnosis/Plan: Unchanged I have reviewed the history and physical and performed a pertinent physical examination on my patient. No changes have occurred unless specified. Time Spent With Patient Time: Total time managing care of this patient today ____ minutes.
--- NOTE | 2024-07-09 17:01 | PM.OP ---
Brief Operative Note Date of Service: 07/09/24 Pre-op diagnosis: Chronic pain syndrome, presence of intrathecal pump, intrathecal pump malfunction. Post-op diagnosis: same Procedure: Revision of intrathecal pain pump Implants: No new implants were given old pump remained in. Surgeon: Joseph Roman MD Anesthesia: GETA Was an [employer] used for this Procedure?: No Estimated blood loss (mL): 35 Pathology: none sent Condition: stable Disposition: PACU
[2024-07-09] MEDS: fentaNYL citrate/PF 100 MCG/2 ML VIAL 25 MCG IVPUSH ×5 (17:05→17:46)
--- NOTE | 2024-07-09 17:07 | P.OP_ITS ---
Operative Note Operative Note Date of Service: 07/09/24 Narrative: Implantation of intrathecal drug delivery system pain pump [employer]. After obtaining informed consent and explaining to the patient risks, benefits and alternatives to treat her pain, the patient was brought up to the operating room where she was positioned supine on the stretcher..? [place] monitors were applied and General anesthesia with endotracheal intubation was initiated. After that the patient was transferred left lateral decubital position on the operating table. All pressure points were protected, padded. The patient received antibiotic clindamycin 900 mg 30 minutes before incision. Time-out was performed delineating correct site and side of the procedure, name and date of of the patient, risk of fire, need for antibiotic prophylaxis risk of DVT and need for DVT prophylaxis. ? After that the patient?s entire back? and right abdomen and right flank were prepped with Chloraprep and draped with full body drape including ioban film. In the projection of the previous scar injection o of the local anesthetic lidocaine 2% plus bupivacaine 0.5% 1-1 was injected in the linear fashion.? After that 12 cm two border incisions were performed in patient's? right upper abdomen alongside the previous scar. The scar was excised and thorough hemostasis was obtained using cautery device. . After that the wound was widened and made 3,5 cm deep .?Intrathecal pain pump was located in the wound and examined. The pump did appear to be positioned reversed in the wound with anterior surface of the device which central and lateral plugs in it facing patient's abdomen and posterior surface device? facing the surface of the skin of the patient. The intrathecal catheter was freed of minimal adhesions and untangled. No kinking was observed. The pump was delivered to the surface of the screen and side port of the pump was accessed using 25 gauge noncoring needle. CSF 1.5 mL was freely aspirated from the intrathecal catheter port without any bubbles or difficulty. Thorough hemostasis of the wound was performed. The wound was irrigated with normal saline containing vancomycin. After the 3 anchoring sutures Tycron 1. Were obtained and anchoring sutures were placed in most superior medial most inferior lateral and most inferior medial corners of the wound. They were connected to the bracket of the pump and after that the pump was dislodged into the wound with care taken together intrathecal catheter behind the body of the pump. After that the wound was irrigated with above-mentioned solution again and hemostasis was repeated with electrocautery device. After that 0-0 Polysorb was used to close the wound, 2-0 Polysorb was used to approximate the skin and louis were applied to the skin level. After that bacitracin ointment was applied to the level of the skin and sterile dressing with 4x4s and Medipore tape was applied to the patient's skin. ? Upon completion of the procedure patient was awaken , extubated and taken outside of the operating room to PACU for recovery.
[2024-07-09] MEDS: Acetaminophen 1,000 MG/100 ML PIGGYBACK 400 MG IV (17:16)
[2024-07-09] MEDS: oxyCODONE HCl Immed Release 5 MG TABLET PO (17:55)
[2024-07-10 07:18] LABS: HIV Num 1 2.35 S/CO (0.00-0.99)
[2024-07-10 07:45] LABS: ~HepC Num1 0.18 S/CO (0.00-0.79); ~Hepatitis C Antibody Nonreactive (Nonreactive)
[2024-07-10 07:49] LABS: HBc Num1 0.18 S/CO (0.00-0.79); HBsAGNum1 0.29 S/CO (0.00-0.99); Hepatitis B Core Antibody Nonreactive (Nonreactive); Hepatitis B Surface Antigen Negative (Negative); ~HepC Num1 0.16 S/CO (0.00-0.79); ~Hepatitis B Surface Antibody NONREACTIVE (Nonreactive); ~Hepatitis C Antibody Nonreactive (Nonreactive)
[2024-07-10 09:28] LABS: HIV AB/AG Nonreactive (Nonreactive); HIV Num 2 0.05 S/CO; HIV Num 3 0.05 S/CO
== END | disposition home or self-care (01) ==
PROVIDERS: Nurse Practitioner; PCP Nurse Practitioner Family; Visit Provider Anesthesiology
PROC: (CPT 62350; principal; 2024-07-09 14:00)
DX: T85.695A Other mechanical complication of other nervous system device, implant or graft, initial encounter (principal); Y82.8 Other medical devices associated with adverse incidents; G89.4 Chronic pain syndrome; M96.1 Postlaminectomy syndrome, not elsewhere classified; M51.36 Other intervertebral disc degeneration, lumbar region; F45.42 Pain disorder with related psychological factors; M54.50 Low back pain, unspecified; F32.A Depression, unspecified; M79.7 Fibromyalgia; Z88.0 Allergy status to penicillin; Z88.5 Allergy status to narcotic agent
CPT/HCPCS: 62350; 36415; 81025; 86704; 86706; 86803; 87340; 87389; J0131; J0736; J2250; J2405; J2704; J2795; J3010; J3370

== ENCOUNTER 2024-07-16 13:22 | Outpatient (AMB) | payer MEDICAID, SELFPAY ==
--- NOTE | 2024-07-16 13:24 | A.OFFVIS_ITS ---
Vital Signs 07/16/24 13:31 Height 5 ft 4 in Weight 206 lb 3 oz BMI 35.4 BP 130/78 Blood Pressure Location Lt brachial Position Sitting Respiration 14 Pulse 102 H Pulse Source Pulse Oximeter Pulse Oximetry (%) 99 Oxygen Delivery Method Room Air Intake Visit Reasons: S/p ITDD Revision 07/09/24 Intake Note: Patient comes in for post-op. She was accompanied by spouse Umberto. Reports pain 04/30. Allergies Penicillins Allergy (Unknown, Verified 07/16/24 13:30) Rash morphine Adverse Reaction (Unknown, Verified 07/16/24 13:30) Anxiety, lethargy HPI Comments Details: Salma is back in my office today after revision of intrathecal pain pump. The wound was examined, louis are competent. No swelling no pathological discharge, no tenderness on palpation no redness. Patient continues to take clindamycin. I told her to stop clindamycin in 3 days. The wound was washed with ChloraPrep and covered with dry sterile dressing affixed to the skin with Tegaderm. She will come in 7 days for staple removal. She is doing better. She does not take oral opioids for postoperative pain she reports that intrathecal opioids work much better for even postoperative acute pain. Past Procedures: 08/24/23: Right Hip Intra-Articular Steroid injection-30% pain relief 06/15/23: Caudal ADDY with catheter: 0% pain relief, made pain worse 04/19/23: Right Hip Intra-Articular Steroid injection-90% ongoing pain relief PRIOR: Patient is a 37 years old female with history of post laminectomy syndrome of lumbar spine, lumbar spine fusion L5-S1, chronic pain of his significant psychosocial dysfunction, depression, elevated STEPHANIE, obesity presents today with lower back pain radiating to her bilateral lateral hips and lower extremities laterally. Denies any recent trauma, injury, or falls. This has been chronic pain for the past 16 years and has been progressively getting worse. Pain affects her daily functioning, mobility, mood, sleep, social interactions and quality of life. Patient became tearful as she described her inadequate sleep for a very long time due to intractable pain in her lower back and difficulty finding the right positioning for comfort. Patient recently completed lumbar spine MRI which revealed new L4-L5 mild broad-based disc bulge with an extra foraminal protrusion and annular fissure. [id number] right and minimal left foraminal narrowing. Patient was recommended by her provider at [facility] to get a new spine injection which patient elected against that due to ineffective injections in the past. Currently patient is taking oxycodone which only partially alleviate her chronic back pain. I have informed patient that our office currently does not offer opioid prescribing. She was referred to us for potential spinal cord stimulator or intrathecal pump for for a more sustained pain relief. Patient is agreeable to both trials, SCS and ITDD trials, therefore I will submit referral for Behavioral Assessment today. We discussed alternative options, risk and benefits for both interventional therapies and I have provided patient and her is informational booklet today. She is also interested to get right hip intra-articular steroid and caudal ADDY with catheter injections under sedation. Patient reports she has tried physical therapy and back injections in the past and has not gained significant pain relief or improved functioning. She denies any fever, weight changes, abdominal or groin pain, bladder or bowel incontinence or saddle anesthesia. Location Low back pain and bilateral hip pain Duration Chronic back pain x16 years, progressively getting worse Characteristics of symptom or complaint Aching, spasming, tingling, shooting, shock-like, throbbing, stabbing Aggravating or associated factors Walking, standing, prolonged sitting, changing positioning, weather changes Relieving factors Oxycodone, cyclobenzaprine, amitriptyline, gabapentin, heat therapy Treatment PT, back injections, back surgery in [facility] Medical History Hip pain, right Nausea Fibromyalgia Cannabis abuse, daily use Osteoarthritis Lumbar degenerative disc disease Cholelithiasis Major depressive disorder Failed back syndrome of lumbar spine Chronic pain associated with significant psychosocial dysfunction Low back pain Chronic GERD Surgical History (Updated 07/09/24 @ 14:08 by Jessica Martinez MD) S/P insertion of intrathecal pump History of back surgery (~2008) Social History Are you a primary youth care professional to a significant other at home: No Do you presently have visiting nurse or other home services: No Alcohol intake: current Alcohol intake frequency: holidays/special occasions only Comment: NO COUNT NEEDED Patient Tobacco Use Status: Never used Tobacco Review of Systems Const All systems reviewed & are unremarkable except as noted in HPI and below ENT Reports Normal hearing present Neuro Reports Normal hearing present and Denies confusion Psych Denies confusion Physical Exam Vital Signs: Last Vital Signs Pulse 102 H 07/16/24 13:31 Resp 14 07/16/24 13:31 BP 130/78 07/16/24 13:31 Pulse Ox 99 07/16/24 13:31 Oxygen Delivery Method Room Air 07/16/24 13:31 BMI result Body Mass Index 35.4 Const General: cooperative, no acute distress, alert, awake and well groomed; No confusion, ill appearing or tired appearing Nutritional Appearance: obese Orientation/consciousness: patient oriented x3 and No confusion Limitations: no limitations Eyes General: appearance normal, both eyes and all related structures Resp Effort & Inspection: normal respiratory effort, able to speak in complete sentences, no audible wheezes, no cough, no respiratory distress and symmetric chest movement GI Inspection: Yes normal to inspection and Yes obesity Palpation (GI): Soft to palpation, nontender and no guarding Back/Spine/Pelvis Other: 3 incisions to back, flank and right abdomen s/p ITDD placement are healing well Thoracic/Lumbar Spine: thoracic and lumbar spine normal to inspection, Lasegue's sign negative, straight leg raise negative bilaterally, pain with thoraco-lumbar ROM, paraspinal muscle tenderness, thoraco-lumbar ROM limited, No thoracic spinal tenderness and No lumbar spinal tenderness Neuro General: patient oriented x3 and No confusion Cranial nerves: Yes Normal hearing present Cognition (Neuro): normal cognition Extrem General: Yes capillary refill normal, Yes no clubbing, cyanosis or edema and Yes no calf tenderness Psych Appearance: grossly normal and well kempt Mental Status: mental status grossly normal Speech and movement: Normal speech and movement present and Clear speech present Affect: normal affect Attitude: cooperative Thought process: Normal thought process present Thought content: Normal thought content present, suicidality (none), no hallucinations and No Depressive thoughts present Insight: Good insight present (Psych) Judgement: Good judgement present (Psych) Assessment & Plan Assessment & Plan (1) Malfunction of intrathecal infusion pump: Code(s): T85.615A - Breakdown (mechanical) of other nervous system device, implant or graft, initial encounter Category: Medical (2) Sacroiliac joint pain: Code(s): M53.3 - Sacrococcygeal disorders, not elsewhere classified Category: Medical (3) Bilateral hip pain: Code(s): M25.551 - Pain in right hip; M25.552 - Pain in left hip Category: Medical (4) Chronic pain syndrome: Code(s): G89.4 - Chronic pain syndrome Category: Medical (5) Lumbar radicular pain: Code(s): M54.16 - Radiculopathy, lumbar region Category: Medical (6) Lumbosacral spondylosis: Code(s): M47.817 - Spondylosis without myelopathy or radiculopathy, lumbosacral region Category: Medical (7) Lumbar degenerative disc disease: Code(s): M51.36 - Other intervertebral disc degeneration, lumbar region Category: Medical (8) Failed back syndrome of lumbar spine: Code(s): M96.1 - Postlaminectomy syndrome, not elsewhere classified Category: Medical Plan She is doing okay after the revision intrathecal pain pump after the body of the pump got flipped on itself in the pocket. The wound examination is as above. Next appointment in 1 week for staple removal. Next appointment for pump refill is on 09/03/2024. I will increase the concentration of the hydromorphone to 1000 micro g (1 mg) a day. Coding Level of Care Code Est Pt Level 3 (14492) Diagnoses Malfunction of intrathecal infusion pump T85.615A Sacroiliac joint pain M53.3 Bilateral hip pain M25.551; M25.552 Chronic pain syndrome G89.4 Lumbar radicular pain M54.16 Lumbosacral spondylosis M47.817 Lumbar degenerative disc disease M51.36 Failed back syndrome of lumbar spine M96.1
[2024-07-16 13:31] VITALS: BP 130/78; PULSE 102; RESP 14; O2SAT 99; BMI 35.4
== END 2024-07-16 14:05 | disposition home or self-care (01) ==
LOC: HO.PMC 13:22
PROVIDERS: PCP Nurse Practitioner Family; Visit Provider Anesthesiology
DX: T85.615A Breakdown (mechanical) of other nervous system device, implant or graft, initial encounter (principal); M53.3 Sacrococcygeal disorders, not elsewhere classified; M25.551 Pain in right hip; M25.552 Pain in left hip; G89.4 Chronic pain syndrome; M54.16 Radiculopathy, lumbar region; M47.817 Spondylosis without myelopathy or radiculopathy, lumbosacral region; M51.36 Other intervertebral disc degeneration, lumbar region; M96.1 Postlaminectomy syndrome, not elsewhere classified
CPT/HCPCS: 99024

== ENCOUNTER → 2024-07-16 13:22 | Outpatient (BNVA) | payer MEDICAID, SELFPAY | PROVIDERS: PCP Nurse Practitioner Family; Visit Provider Anesthesiology | DX: M96.1 Postlaminectomy syndrome, not elsewhere classified (principal); M25.551 Pain in right hip; M25.552 Pain in left hip; G89.4 Chronic pain syndrome; M54.16 Radiculopathy, lumbar region; M53.3 Sacrococcygeal disorders, not elsewhere classified; M47.817 Spondylosis without myelopathy or radiculopathy, lumbosacral region; M51.36 Other intervertebral disc degeneration, lumbar region; Z96.82 Presence of neurostimulator; T85.615A Breakdown (mechanical) of other nervous system device, implant or graft, initial encounter | CPT/HCPCS: 99212 ==

== ENCOUNTER 2024-07-23 13:07 | Outpatient (AMB) | payer MEDICAID, SELFPAY ==
--- NOTE | 2024-07-23 13:15 | A.OFFVIS_ITS ---
Vital Signs 07/23/24 13:22 Height 5 ft 4 in Weight 206 lb 3 oz BMI 35.4 BP 125/83 Blood Pressure Location Lt brachial Position Sitting Respiration 16 Pulse 92 Pulse Source Pulse Oximeter Pulse Oximetry (%) 95 Oxygen Delivery Method Room Air Intake Visit Reasons: S/p ITDD Revision 07/09/24 (2nd Visit) Intake Note: Patient comes in for post-op # 2. Reports pain 10. Accompanied by: Spouse Allergies Penicillins Allergy (Unknown, Verified 07/23/24 13:22) Rash morphine Adverse Reaction (Unknown, Verified 07/23/24 13:22) Anxiety, lethargy HPI Comments Details: Salma is back in my office today after revision of intrathecal pain pump. The wound was examined, felix are competent. No swelling no pathological discharge, no tenderness on palpation no redness. The wound was washed with ChloraPrep , felix were removed and the wound was covered with dry sterile dressing affixed to the skin with regular tape. Patient reported that last time she developed allergic reaction to the Tegaderm. So no Tegaderm for her anymore. She had slight redness on the periphery of the wound on inspection today She will come for the next pump refill however I told her that if anything is not straight forward with her wound or otherwise she needs to give me a call or appear here for urgent appointment. Past Procedures: 08/24/23: Right Hip Intra-Articular Steroid injection-30% pain relief 06/15/23: Caudal ADDY with catheter: 0% pain relief, made pain worse 04/19/23: Right Hip Intra-Articular Steroid injection-90% ongoing pain relief PRIOR: Patient is a 37 years old female with history of post laminectomy syndrome of lumbar spine, lumbar spine fusion L5-S1, chronic pain of his significant psychosocial dysfunction, depression, elevated STEPHANIE, obesity presents today with lower back pain radiating to her bilateral lateral hips and lower extremities laterally. Denies any recent trauma, injury, or falls. This has been chronic pain for the past 16 years and has been progressively getting worse. Pain affects her daily functioning, mobility, mood, sleep, social interactions and quality of life. Patient became tearful as she described her inadequate sleep for a very long time due to intractable pain in her lower back and difficulty finding the right positioning for comfort. Patient recently completed lumbar spine MRI which revealed new L4-L5 mild broad-based disc bulge with an extra foraminal protrusion and annular fissure. [id number] right and minimal left foraminal narrowing. Patient was recommended by her provider at [facility] to get a new spine injection which patient elected against that due to ineffective injections in the past. Currently patient is taking oxycodone which only partially alleviate her chronic back pain. I have informed patient that our office currently does not offer opioid prescribing. She was referred to us for potential spinal cord stimulator or intrathecal pump for for a more sustained pain relief. Patient is agreeable to both trials, SCS and ITDD trials, therefore I will submit referral for Behavioral Assessment today. We discussed alternative options, risk and benefits for both interventional therapies and I have provided patient and her is informational booklet today. She is also interested to get right hip intra-articular steroid and caudal ADDY with catheter injections under sedation. Patient reports she has tried physical therapy and back injections in the past and has not gained significant pain relief or improved functioning. She denies any fever, weight changes, abdominal or groin pain, bladder or bowel incontinence or saddle anesthesia. Location Low back pain and bilateral hip pain Duration Chronic back pain x16 years, progressively getting worse Characteristics of symptom or complaint Aching, spasming, tingling, shooting, shock-like, throbbing, stabbing Aggravating or associated factors Walking, standing, prolonged sitting, changing positioning, weather changes Relieving factors Oxycodone, cyclobenzaprine, amitriptyline, gabapentin, heat therapy Treatment PT, back injections, back surgery in 2008 [facility] Medical History Hip pain, right Nausea Fibromyalgia Cannabis abuse, daily use Osteoarthritis Lumbar degenerative disc disease Cholelithiasis Major depressive disorder Failed back syndrome of lumbar spine Chronic pain associated with significant psychosocial dysfunction Low back pain Chronic GERD Surgical History (Updated 07/09/24 @ 14:08 by Jessica Martinez MD) S/P insertion of intrathecal pump History of back surgery (~2008) Social History Are you a primary director of health care marketing to a significant other at home: No Do you presently have visiting nurse or other home services: No Alcohol intake: current Alcohol intake frequency: holidays/special occasions only Comment: NO COUNT NEEDED Patient Tobacco Use Status: Never used Tobacco Review of Systems Const All systems reviewed & are unremarkable except as noted in HPI and below ENT Reports Normal hearing present Neuro Reports Normal hearing present and Denies confusion Psych Denies confusion Physical Exam Vital Signs: Last Vital Signs Pulse 92 07/23/24 13:22 Resp 16 07/23/24 13:22 BP 125/83 07/23/24 13:22 Pulse Ox 95 07/23/24 13:22 Oxygen Delivery Method Room Air 07/23/24 13:22 BMI result Body Mass Index 35.4 Const General: cooperative, no acute distress, alert, awake and well groomed; No confusion, ill appearing or tired appearing Nutritional Appearance: obese Orientation/consciousness: patient oriented x3 and No confusion Limitations: no limitations Eyes General: appearance normal, both eyes and all related structures Resp Effort & Inspection: normal respiratory effort, able to speak in complete sentences, no audible wheezes, no cough, no respiratory distress and symmetric chest movement GI Inspection: Yes normal to inspection and Yes obesity Palpation (GI): Soft to palpation, nontender and no guarding Back/Spine/Pelvis Other: 3 incisions to back, flank and right abdomen s/p ITDD placement are healing well Thoracic/Lumbar Spine: thoracic and lumbar spine normal to inspection, Lasegue's sign negative, straight leg raise negative bilaterally, pain with thoraco-lumbar ROM, paraspinal muscle tenderness, thoraco-lumbar ROM limited, No thoracic spinal tenderness and No lumbar spinal tenderness Neuro General: patient oriented x3 and No confusion Cranial nerves: Yes Normal hearing present Cognition (Neuro): normal cognition Extrem General: Yes capillary refill normal, Yes no clubbing, cyanosis or edema and Yes no calf tenderness Psych Appearance: grossly normal and well kempt Mental Status: mental status grossly normal Speech and movement: Normal speech and movement present and Clear speech present Affect: normal affect Attitude: cooperative Thought process: Normal thought process present Thought content: Normal thought content present, suicidality (none), no hallucinations and No Depressive thoughts present Insight: Good insight present (Psych) Judgement: Good judgement present (Psych) Assessment & Plan Assessment & Plan (1) Malfunction of intrathecal infusion pump: Code(s): T85.615A - Breakdown (mechanical) of other nervous system device, implant or graft, initial encounter Category: Medical (2) Sacroiliac joint pain: Code(s): M53.3 - Sacrococcygeal disorders, not elsewhere classified Category: Medical (3) Bilateral hip pain: Code(s): M25.551 - Pain in right hip; M25.552 - Pain in left hip Category: Medical (4) Chronic pain syndrome: Code(s): G89.4 - Chronic pain syndrome Category: Medical (5) Lumbar radicular pain: Code(s): M54.16 - Radiculopathy, lumbar region Category: Medical (6) Lumbosacral spondylosis: Code(s): M47.817 - Spondylosis without myelopathy or radiculopathy, lumbosacral region Category: Medical (7) Lumbar degenerative disc disease: Code(s): M51.36 - Other intervertebral disc degeneration, lumbar region Category: Medical (8) Failed back syndrome of lumbar spine: Code(s): M96.1 - Postlaminectomy syndrome, not elsewhere classified Category: Medical Plan She is doing okay after the revision intrathecal pain pump after the body of the pump got flipped on itself in the pocket. The wound examination is as above. Felix were removed today sterile dry dressing applied. Next appointment for pump refill is on 09/03/2024. I will increase the concentration of the hydromorphone to 1000 micro g (1 mg) a day. However she was told that if she would like to see me on any reason related to the wound or otherwise she needs to schedule an urgent appointment will give me a call on the telephone to the office. Coding Level of Care Code Est Pt Level 3 (91127) Diagnoses Malfunction of intrathecal infusion pump T85.615A Sacroiliac joint pain M53.3 Bilateral hip pain M25.551; M25.552 Chronic pain syndrome G89.4 Lumbar radicular pain M54.16 Lumbosacral spondylosis M47.817 Lumbar degenerative disc disease M51.36 Failed back syndrome of lumbar spine M96.1
[2024-07-23 13:22] VITALS: BP 125/83; PULSE 92; RESP 16; O2SAT 95; BMI 35.4
== END 2024-07-23 13:32 | disposition home or self-care (01) ==
PROVIDERS: PCP Nurse Practitioner Family; Referring Provider Nurse Practitioner Family; Visit Provider Anesthesiology
DX: M53.3 Sacrococcygeal disorders, not elsewhere classified (principal); M25.551 Pain in right hip; M54.16 Radiculopathy, lumbar region; M47.817 Spondylosis without myelopathy or radiculopathy, lumbosacral region; M96.1 Postlaminectomy syndrome, not elsewhere classified
CPT/HCPCS: 99213

== ENCOUNTER → 2024-07-23 13:07 | Outpatient (BNVA) | payer MEDICAID, SELFPAY | PROVIDERS: PCP Nurse Practitioner Family; Visit Provider Anesthesiology | DX: T85.615D Breakdown (mechanical) of other nervous system device, implant or graft, subsequent encounter (principal); M53.3 Sacrococcygeal disorders, not elsewhere classified; M25.551 Pain in right hip; M25.552 Pain in left hip; M54.16 Radiculopathy, lumbar region; M47.817 Spondylosis without myelopathy or radiculopathy, lumbosacral region; M96.1 Postlaminectomy syndrome, not elsewhere classified; M51.360 Other intervertebral disc degeneration, lumbar region with discogenic back pain only; G89.4 Chronic pain syndrome | CPT/HCPCS: 99212 ==

== ENCOUNTER 2024-08-21 10:02 | Outpatient (AMB) | payer MEDICAID, SELFPAY ==
--- NOTE | 2024-08-21 10:05 | A.OFFVIS_ITS ---
Vital Signs 08/21/24 10:16 Height 5 ft 4 in Weight 206 lb 3 oz BMI 35.4 BP 146/92 H Blood Pressure Location Lt brachial Position Sitting Respiration 16 Pulse 105 H Pulse Source Pulse Oximeter Pulse Oximetry (%) 97 Oxygen Delivery Method Room Air Intake Visit Reasons: Follow Up for Pain Intake Note: Patient comes in for bilateral hip pain, mid and lower back pain. Reports pain 8/10. Accompanied by: Spouse Allergies Penicillins Allergy (Unknown, Verified 07/23/24 13:22) Rash morphine Adverse Reaction (Unknown, Verified 07/23/24 13:22) Anxiety, lethargy HPI Comments Details: Salma is back in my office with complains on pain in bilateral hips with radiation of the pain in the groin. The pain is aggravated by lateral and medial rotation of the hip. Lateral rotation of the hip on the right results in severe pain in the groin and clicking sensation in the groin area. Most likely her hip joint arthritis got severely exacerbated at this time. This is most likely inflammatory pain and will not be amendable to escalation of the doses of the opioids. She is under my care with postlaminectomy syndrome lower back pain which is treated as a neuropathic pain with intrathecal pain pump. Recently had a revi velasquez done because her pump on the abdomen both flipped. Otherwise she is doing okay the pump report is demonstrating progression of the therapy. I will schedule her for bilateral intra-articular hip steroid injection in the operating room with minimal sedation. Past Procedures: 08/24/23: Right Hip Intra-Articular Steroid injection-30% pain relief 06/15/23: Caudal ADDY with catheter: 0% pain relief, made pain worse 04/19/23: Right Hip Intra-Articular Steroid injection-90% ongoing pain relief PRIOR: Patient is a 37 years old female with history of post laminectomy syndrome of lumbar spine, lumbar spine fusion L5-S1, chronic pain of his significant psychosocial dysfunction, depression, elevated STEPHANIE, obesity presents today with lower back pain radiating to her bilateral lateral hips and lower extremities laterally. Denies any recent trauma, injury, or falls. This has been chronic pain for the past 16 years and has been progressively getting worse. Pain affects her daily functioning, mobility, mood, sleep, social interactions and quality of life. Patient became tearful as she described her inadequate sleep for a very long time due to intractable pain in her lower back and difficulty finding the right positioning for comfort. Patient recently completed lumbar spine MRI which revealed new L4-L5 mild broad-based disc bulge with an extra foraminal protrusion and annular fissure. [id number] right and minimal left foraminal narrowing. Patient was recommended by her provider at [facility] to get a new spine injection which patient elected against that due to ineffective injections in the past. Currently patient is taking oxycodone which only partially alleviate her chronic back pain. I have informed patient that our office currently does not offer opioid prescribing. She was referred to us for potential spinal cord stimulator or intrathecal pump for for a more sustained pain relief. Patient is agreeable to both trials, SCS and ITDD trials, therefore I will submit referral for Behavioral Assessment today. We discussed alternative options, risk and benefits for both interventional therapies and I have provided patient and her is informational booklet today. She is also interested to get right hip intra-articular steroid and caudal ADDY with catheter injections under sedation. Patient reports she has tried physical therapy and back injections in the past and has not gained significant pain relief or improved functioning. She denies any fever, weight changes, abdominal or groin pain, bladder or bowel incontinence or saddle anesthesia. Location Low back pain and bilateral hip pain Duration Chronic back pain x16 years, progressively getting worse Characteristics of symptom or complaint Aching, spasming, tingling, shooting, shock-like, throbbing, stabbing Aggravating or associated factors Walking, standing, prolonged sitting, changing positioning, weather changes Relieving factors Oxycodone, cyclobenzaprine, amitriptyline, gabapentin, heat therapy Treatment PT, back injections, back surgery in 2008 [facility] Medical History (Updated 08/21/24 @ 10:45 by Joseph Roman MD) Hip pain, right Nausea Fibromyalgia Cannabis abuse, daily use Osteoarthritis Lumbar degenerative disc disease Cholelithiasis Major depressive disorder Failed back syndrome of lumbar spine Chronic pain associated with significant psychosocial dysfunction Low back pain Chronic GERD Surgical History (Updated 07/09/24 @ 14:08 by Jessica Martinez MD) S/P insertion of intrathecal pump History of back surgery (~2008) Social History Are you a primary ambulatory care coordinator to a significant other at home: No Do you presently have visiting nurse or other home services: No Alcohol intake: current Alcohol intake frequency: holidays/special occasions only Comment: NO COUNT NEEDED Patient Tobacco Use Status: Never used Tobacco Review of Systems Const All systems reviewed & are unremarkable except as noted in HPI and below ENT Reports Normal hearing present Neuro Reports Normal hearing present and Denies confusion Psych Denies confusion Physical Exam Vital Signs: Last Vital Signs Pulse 105 H 08/21/24 10:16 Resp 16 08/21/24 10:16 BP 146/92 H 08/21/24 10:16 Pulse Ox 97 08/21/24 10:16 Oxygen Delivery Method Room Air 08/21/24 10:16 BMI result Body Mass Index 35.4 Const General: cooperative, no acute distress, alert, awake and well groomed; No confusion, ill appearing or tired appearing Nutritional Appearance: obese Orientation/consciousness: patient oriented x3 and No confusion Limitations: no limitations Eyes General: appearance normal, both eyes and all related structures Resp Effort & Inspection: normal respiratory effort, able to speak in complete sentences, no audible wheezes, no cough, no respiratory distress and symmetric chest movement GI Inspection: Yes normal to inspection and Yes obesity Palpation (GI): Soft to palpation, nontender and no guarding Back/Spine/Pelvis Other: 3 incisions to back, flank and right abdomen s/p ITDD placement are healing well Thoracic/Lumbar Spine: thoracic and lumbar spine normal to inspection, Lasegue's sign negative, straight leg raise negative bilaterally, pain with thoraco-lumbar ROM, paraspinal muscle tenderness, thoraco-lumbar ROM limited, No thoracic spinal tenderness and No lumbar spinal tenderness Neuro General: patient oriented x3 and No confusion Cranial nerves: Yes Normal hearing present Cognition (Neuro): normal cognition Extrem Other: Lateral and medial rotation of bilateral hips cause severe pain in the groin radiation of the pain to the trochanter. Clicking sensation in the right hip joint. General: Yes capillary refill normal, Yes no clubbing, cyanosis or edema and Yes no calf tenderness Psych Appearance: grossly normal and well kempt Mental Status: mental status grossly normal Speech and movement: Normal speech and movement present and Clear speech present Affect: normal affect Attitude: cooperative Thought process: Normal thought process present Thought content: Normal thought content present, suicidality (none), no hallucinations and No Depressive thoughts present Insight: Good insight present (Psych) Judgement: Good judgement present (Psych) Assessment & Plan Assessment & Plan (1) Sacroiliac joint pain: Code(s): M53.3 - Sacrococcygeal disorders, not elsewhere classified Category: Medical (2) Bilateral hip pain: Code(s): M25.551 - Pain in right hip; M25.552 - Pain in left hip Category: Medical (3) Chronic pain syndrome: Code(s): G89.4 - Chronic pain syndrome Category: Medical (4) Lumbar radicular pain: Code(s): M54.16 - Radiculopathy, lumbar region Category: Medical (5) Lumbosacral spondylosis: Code(s): M47.817 - Spondylosis without myelopathy or radiculopathy, lumbosacral region Category: Medical (6) Lumbar degenerative disc disease: Code(s): M51.36 - Other intervertebral disc degeneration, lumbar region Category: Medical (7) Failed back syndrome of lumbar spine: Code(s): M96.1 - Postlaminectomy syndrome, not elsewhere classified Category: Medical (8) Bilateral hip joint arthritis: Code(s): M16.0 - Bilateral primary osteoarthritis of hip Category: Medical Plan She is back in my office with complain on hip bilateral pain. I offered her t herapeutic bilateral steroid injections into bilateral hip joints. I will schedule with on under minimal sedation as soon as possible. I need her help in the operating room in the order to repositioned from the left lateral decubitus to the right lateral decubitus position. She was asking me to increase opioid dose today but this inflammatory pain syndrome is unlikely to be modified by opioid escalation. I will see this patient again after the injection or for her pain pump refill whichever comes earlier. Coding Level of Care Code Est Pt Level 3 (49761) Diagnoses Sacroiliac joint pain M53.3 Bilateral hip pain M25.551; M25.552 Chronic pain syndrome G89.4 Lumbar radicular pain M54.16 Lumbosacral spondylosis M47.817 Lumbar degenerative disc disease M51.36 Failed back syndrome of lumbar spine M96.1 Bilateral hip joint arthritis M16.0
[2024-08-21 10:16] VITALS: BP 146/92; PULSE 105; RESP 16; O2SAT 97; BMI 35.4
== END 2024-08-21 10:47 | disposition home or self-care (01) ==
LOC: HO.PMC 10:03
PROVIDERS: PCP Nurse Practitioner Family; Visit Provider Anesthesiology
DX: M53.3 Sacrococcygeal disorders, not elsewhere classified (principal); M25.551 Pain in right hip; M25.552 Pain in left hip; G89.4 Chronic pain syndrome; M54.16 Radiculopathy, lumbar region; M47.817 Spondylosis without myelopathy or radiculopathy, lumbosacral region; M51.369 Other intervertebral disc degeneration, lumbar region without mention of lumbar back pain or lower extremity pain; M96.1 Postlaminectomy syndrome, not elsewhere classified; M16.0 Bilateral primary osteoarthritis of hip
CPT/HCPCS: 99213

== ENCOUNTER → 2024-08-21 10:02 | Outpatient (BNVA) | payer MEDICAID, SELFPAY | PROVIDERS: PCP Nurse Practitioner Family; Visit Provider Anesthesiology | DX: M53.3 Sacrococcygeal disorders, not elsewhere classified (principal); M25.551 Pain in right hip; M25.552 Pain in left hip; M54.16 Radiculopathy, lumbar region; M47.817 Spondylosis without myelopathy or radiculopathy, lumbosacral region; M51.360 Other intervertebral disc degeneration, lumbar region with discogenic back pain only; M96.1 Postlaminectomy syndrome, not elsewhere classified; M16.0 Bilateral primary osteoarthritis of hip; G89.4 Chronic pain syndrome | CPT/HCPCS: 99212 ==

== ENCOUNTER 2024-09-03 12:58 | Outpatient (AMB) | payer MEDICAID, SELFPAY ==
--- NOTE | 2024-09-03 13:04 | MHC.OFFVIS ---
Vital Signs 09/03/24 13:34 Height 5 ft 4 in Weight 206 lb BMI 35.4 BP 132/74 Blood Pressure Location Lt brachial Position Sitting Respiration 16 Pulse 68 Pulse Source Pulse Oximeter Pulse Oximetry (%) 97 Oxygen Delivery Method Room Air Intake Visit Reasons: ITDD Refill Intake Note: Patient comes in for intrathecal medication refill. Reports pain 04/30. Allergies Penicillins Allergy (Unknown, Verified 09/03/24 13:35) Rash morphine Adverse Reaction (Unknown, Verified 09/03/24 13:35) Anxiety, lethargy HPI Comments Details: Salma is back in my office for pump refill. She is scheduled for bilateral hip injection on 09/05/2024. Today she came for pain pump refill with increase concentration of the medication 1000 micro g/1 mg hydromorphone/Dilaudid available in the pump 40 cc preservative-free normal saline. Pump refill is as below. Continues to endorse pain in bilateral hips with radiation of the pain in the groin. The pain is aggravated by lateral and medial rotation of the hip. Lateral rotation of the hip on the right results in severe pain in the groin and clicking sensation in the groin area. Most likely her hip joint arthritis got severely exacerbated at this time. This is most likely inflammatory pain and will not be amendable to escalation of the doses of the opioids. She is under my care with postlaminectomy syndrome lower back pain which is treated as a neuropathic pain with intrathecal pain pump. Recently had a revision done because her pump on the abdomen both flipped. Otherwise she is doing okay the pump report is demonstrating progression of the therapy. I will schedule her for bilateral intra-articular hip steroid injection in the operating room with minimal sedation. Past Procedures: 08/24/23: Right Hip Intra-Articular Steroid injection-30% pain relief 06/15/23: Caudal ADDY with catheter: 0% pain relief, made pain worse 04/19/23: Right Hip Intra-Articular Steroid injection-90% ongoing pain relief PRIOR: Patient is a 37 years old female with history of post laminectomy syndrome of lumbar spine, lumbar spine fusion L5-S1, chronic pain of his significant psychosocial dysfunction, depression, elevated STEPHANIE, obesity presents today with lower back pain radiating to her bilateral lateral hips and lower extremities laterally. Denies any recent trauma, injury, or falls. This has been chronic pain for the past 16 years and has been progressively getting worse. Pain affects her daily functioning, mobility, mood, sleep, social interactions and quality of life. Patient became tearful as she described her inadequate sleep for a very long time due to intractable pain in her lower back and difficulty finding the right positioning for comfort. Patient recently completed lumbar spine MRI which revealed new L4-L5 mild broad-based disc bulge with an extra foraminal protrusion and annular fissure. [id number] right and minimal left foraminal narrowing. Patient was recommended by her provider at [facility] to get a new spine injection which patient elected against that due to ineffective injections in the past. Currently patient is taking oxycodone which only partially alleviate her chronic back pain. I have informed patient that our office currently does not offer opioid prescribing. She was referred to us for potential spinal cord stimulator or intrathecal pump for for a more sustained pain relief. Patient is agreeable to both trials, SCS and ITDD trials, therefore I will submit referral for Behavioral Assessment today. We discussed alternative options, risk and benefits for both interventional therapies and I have provided patient and her is informational booklet today. She is also interested to get right hip intra-articular steroid and caudal ADDY with catheter injections under sedation. Patient reports she has tried physical therapy and back injections in the past and has not gained significant pain relief or improved functioning. She denies any fever, weight changes, abdominal or groin pain, bladder or bowel incontinence or saddle anesthesia. Location Low back pain and bilateral hip pain Duration Chronic back pain x16 years, progressively getting worse Characteristics of symptom or complaint Aching, spasming, tingling, shooting, shock-like, throbbing, stabbing Aggravating or associated factors Walking, standing, prolonged sitting, changing positioning, weather changes Relieving factors Oxycodone, cyclobenzaprine, amitriptyline, gabapentin, heat therapy Treatment PT, back injections, back surgery in 2008 [facility] Medical History (Updated 08/21/24 @ 10:45 by Joseph Roman MD) Hip pain, right Nausea Fibromyalgia Cannabis abuse, daily use Osteoarthritis Lumbar degenerative disc disease Cholelithiasis Major depressive disorder Failed back syndrome of lumbar spine Chronic pain associated with significant psychosocial dysfunction Low back pain Chronic GERD Surgical History (Updated 07/09/24 @ 14:08 by Jessica Martinez MD) S/P insertion of intrathecal pump History of back surgery (~2008) Social History Are you a primary healthcare risk control consultant to a significant other at home: No Do you presently have visiting nurse or other home services: No Alcohol intake: current Alcohol intake frequency: holidays/special occasions only Comment: NO COUNT NEEDED Patient Tobacco Use Status: Never used Tobacco Review of Systems Const All systems reviewed & are unremarkable except as noted in HPI and below ENT Reports Normal hearing present Neuro Reports Normal hearing present and Denies confusion Psych Denies confusion Physical Exam Vital Signs: Last Vital Signs Pulse 68 09/03/24 13:34 Resp 16 09/03/24 13:34 BP 132/74 09/03/24 13:34 Pulse Ox 97 09/03/24 13:34 Oxygen Delivery Method Room Air 09/03/24 13:34 BMI result Body Mass Index 35.4 Const General: cooperative, no acute distress, alert, awake and well groomed; No confusion, ill appearing or tired appearing Nutritional Appearance: obese Orientation/consciousness: patient oriented x3 and No confusion Limitations: no limitations Eyes General: appearance normal, both eyes and all related structures Resp Effort & Inspection: normal respiratory effort, able to speak in complete sentences, no audible wheezes, no cough, no respiratory distress and symmetric chest movement GI Inspection: Yes normal to inspection and Yes obesity Palpation (GI): Soft to palpation, nontender and no guarding Back/Spine/Pelvis Other: 3 incisions to back, flank and right abdomen s/p ITDD placement are healing well Thoracic/Lumbar Spine: thoracic and lumbar spine normal to inspection, Lasegue's sign negative, straight leg raise negative bilaterally, pain with thoraco-lumbar ROM, paraspinal muscle tenderness, thoraco-lumbar ROM limited, No thoracic spinal tenderness and No lumbar spinal tenderness Neuro General: patient oriented x3 and No confusion Cranial nerves: Yes Normal hearing present Cognition (Neuro): normal cognition Extrem Other: Lateral and medial rotation of bilateral hips cause severe pain in the groin radiation of the pain to the trochanter. Clicking sensation in the right hip joint. General: Yes capillary refill normal, Yes no clubbing, cyanosis or edema and Yes no calf tenderness Psych Appearance: grossly normal and well kempt Mental Status: mental status grossly normal Speech and movement: Normal speech and movement present and Clear speech present Affect: normal affect Attitude: cooperative Thought process: Normal thought process present Thought content: Normal thought content present, suicidality (none), no hallucinations and No Depressive thoughts present Insight: Good insight present (Psych) Judgement: Good judgement present (Psych) Assessment & Plan Assessment & Plan (1) Sacroiliac joint pain: Code(s): M53.3 - Sacrococcygeal disorders, not elsewhere classified Category: Medical (2) Bilateral hip pain: Code(s): M25.551 - Pain in right hip; M25.552 - Pain in left hip Category: Medical (3) Chronic pain syndrome: Code(s): G89.4 - Chronic pain syndrome Category: Medical (4) Lumbar radicular pain: Code(s): M54.16 - Radiculopathy, lumbar region Category: Medical (5) Lumbosacral spondylosis: Code(s): M47.817 - Spondylosis without myelopathy or radiculopathy, lumbosacral region Category: Medical (6) Lumbar degenerative disc disease: Code(s): M51.36 - Other intervertebral disc degeneration, lumbar region Category: Medical (7) Failed back syndrome of lumbar spine: Code(s): M96.1 - Postlaminectomy syndrome, not elsewhere classified Category: Medical Plan: Intrathecal pump refill. THE PATIENT CAME TODAY to the office FOR THE CHANGE OF THE MEDICATION IN her PAIN PUMP. The name and date of were verified and informed consent was obtained for the procedure. ?The pump was interrogated and the residual amount of fluid was found to be 4.4 mL. SHE WAS POSITIONED supine on the bed AND THE AREA OF THE INTRATHECAL PUMP WAS PREPPED WITH CHLORAPREP. The fenestrated drape was sterilely applied over the area of the pump. Sterile gloves were worn and of the aspiration system was assembled containing 2 in 22 gauge noncoring needle, the needle was connected to extension tubing which was connected to the 20 cc sterile syringe. The pain pump was palpated under the skin in the patient's right buttock area. The needle was inserted through the skin and the central plug of the pain pump and fluid was aspirated. The clear fluid was going into the syringe the total amount of the fluid was 6.0 mL .. After that a new batch? of medication was obtained which was hydromorphone/Dilaudid 1000 micro g per mL. (new concentration) The admixture was made in the 2- 20 cc syringes prepared by [facility] compounding pharmacy. The syringe was connected to the bacterial filter, and then connected to the extension tubing. After that the medication in the syringe was slowly instilled into the pump with aspirations at 15 and 5 cc velazquez.? The pump was reprogrammed for the doses o continuous doses of hydromorphone 48 micro g per day, as well as 95 micro g of Dilaudid a day bolus duration 6 minutes lockout duration 4 hours 5 boluses per day 5 boluses in 24 hours. (8) Bilateral hip joint arthritis: Code(s): M16.0 - Bilateral primary osteoarthritis of hip Category: Medical Plan She is scheduled for hip injection on 09/05/2024. The pump refill today see as above. Her pump refill will be scheduled 11/17/2024 Coding Level of Care Code Est Pt Level 3 (15049) Procedure Only Diagnoses Sacroiliac joint pain M53.3 Bilateral hip pain M25.551; M25.552 Chronic pain syndrome G89.4 Lumbar radicular pain M54.16 Lumbosacral spondylosis M47.817 Lumbar degenerative disc disease M51.36 Failed back syndrome of lumbar spine M96.1 Bilateral hip joint arthritis M16.0
[2024-09-03 13:34] VITALS: BP 132/74; PULSE 68; RESP 16; O2SAT 97; BMI 35.4
== END 2024-09-03 13:32 | disposition home or self-care (01) ==
PROVIDERS: PCP Nurse Practitioner Family; Visit Provider Anesthesiology
DX: G89.4 Chronic pain syndrome (principal); M53.3 Sacrococcygeal disorders, not elsewhere classified; M25.551 Pain in right hip; M25.552 Pain in left hip; Z45.1 Encounter for adjustment and management of infusion pump; M54.16 Radiculopathy, lumbar region; M47.817 Spondylosis without myelopathy or radiculopathy, lumbosacral region; M51.369 Other intervertebral disc degeneration, lumbar region without mention of lumbar back pain or lower extremity pain; M96.1 Postlaminectomy syndrome, not elsewhere classified; M16.0 Bilateral primary osteoarthritis of hip
CPT/HCPCS: 62370; 99213

== ENCOUNTER → 2024-09-03 12:58 | Outpatient (BNVA) | payer MEDICAID, SELFPAY | PROVIDERS: PCP Nurse Practitioner Family; Visit Provider Anesthesiology | DX: M53.3 Sacrococcygeal disorders, not elsewhere classified (principal); M25.551 Pain in right hip; M25.552 Pain in left hip; G89.4 Chronic pain syndrome; M54.16 Radiculopathy, lumbar region; M47.817 Spondylosis without myelopathy or radiculopathy, lumbosacral region; M51.369 Other intervertebral disc degeneration, lumbar region without mention of lumbar back pain or lower extremity pain; M96.1 Postlaminectomy syndrome, not elsewhere classified; Z45.1 Encounter for adjustment and management of infusion pump; Z79.891 Long term (current) use of opiate analgesic | CPT/HCPCS: 62370; 99212 ==

== ENCOUNTER 2024-09-05 08:59 | Day surgery (SDC) | payer MEDICAID, SELFPAY ==
--- NOTE | 2024-09-03 13:15 | P.CONAN_ITS ---
HPI - Anesthesia Eval Consult details Narrative: 39yo F for Bilateral Intra-Articular Hip Steroid Injection s/p intrathecal drug implant revision 06/2024 with GA-ETT 7 (pro vu - poor dentition, broken teeth) PMFSH Active Problems Active Problems: All Active Problems Bilateral hip joint arthritis (Acute) Malfunction of intrathecal infusion pump (Acute) Sacroiliac joint pain (Acute) Bilateral hip pain (Acute) Chronic pain syndrome (Acute) Lumbar radicular pain (Acute) Lumbosacral spondylosis (Acute) Lumbar degenerative disc disease (Acute) Failed back syndrome of lumbar spine (Acute) Past Medical History Medical History Hip pain, right Nausea Fibromyalgia Cannabis abuse, daily use Osteoarthritis Lumbar degenerative disc disease Cholelithiasis Major depressive disorder Failed back syndrome of lumbar spine Chronic pain associated with significant psychosocial dysfunction Low back pain Chronic GERD Family History Family history of problems with anesthesia: No Surgical History Surgical History S/P insertion of intrathecal pump History of back surgery (~2008) History of Problems with Anesthesia: No Social History Social History Are you a primary laboratory animal caretaker to a significant other at home: No Do you presently have visiting nurse or other home services: No Alcohol intake: current Alcohol intake frequency: holidays/special occasions only Patient Tobacco Use Status: Never used Tobacco Meds Allergies Allergy/AdvReac Type Severity Reaction Status Date / Time Penicillins Allergy Unknown Rash Verified 09/05/24 09:35 morphine AdvReac Unknown Anxiety, Verified 09/05/24 09:35 lethargy Home Medications ?Medication ?Instructions ?Recorded ?Confirmed ?Last Taken ?Type cyclobenzaprine 5 mg tablet 5 mg PO BID PRN Muscle Pain 04/09/23 09/05/24 08/23/23 History folic acid 1 mg tablet 1 mg PO DAILY 04/09/23 09/05/24 08/23/23 History hydroxyzine pamoate 25 mg capsule 25 - 50 mg PO BEDTIME PRN Insomnia 04/09/23 09/05/24 08/23/23 History ibuprofen 600 mg tablet 600 mg PO TID PRN Pain 04/09/23 09/05/24 02/17/24 History ondansetron 4 mg disintegrating 4 mg PO TID PRN Nausea 04/09/23 09/05/24 08/24/23 05:45 History tablet pantoprazole 40 mg tablet,delayed 40 mg PO BEDTIME 04/09/23 09/05/24 08/23/23 History release meloxicam 15 mg tablet 15 mg PO QAM 02/20/24 02/20/24 02/14/24 History amitriptyline 100 mg tablet 100 mg PO BEDTIME 03/07/24 09/05/24 Unknown History Assessment and Plan Assessment Anesthesia Assessment: Chart Reviewed Final Anesthetic Review Family History of Problems with Anesthesia: No History of Problems with Anesthesia: No
[2024-09-05 09:36] VITALS: BMI 33.3
[2024-09-05 09:47] VITALS: BP 111/68; PULSE 83; RESP 16; TEMP 36.9; O2SAT 97
--- NOTE | 2024-09-05 09:55 | P.HPSUR_ITS ---
Pre-Procedural Eval Section A - 24 Hr Update-Section A only Date of Service: 09/05/24 The patient is an INPATIENT: No Changes since office visit: Yes Patient answered all questions The patient has been examined within 24 hours of the surgical procedure. The History & Physical has been completed within 30 days and I have reviewed it.: No Section B - Complete if H&P > 30 days Chief Complaint: Right and left osteoarthritis hip joints, Details of Present Illness: Pain in hip joints, osteoarthritis of bilateral hip joints Relevant Family History (Specify if Yes): No Relevant Social History: None Present Medications: None Medical History: No relevant PMH History of Previous Operations: No relevant previous surgery Allergies: Allergies Allergy/AdvReac Type Severity Reaction Status Date / Time Penicillins Allergy Unknown Rash Verified 09/05/24 09:35 morphine AdvReac Unknown Anxiety, Verified 09/05/24 09:35 lethargy Review of Systems Sugical H&P ROS: Negative: Cardiovascular, Respiratory, Neurological, Psychiatric, Hem-Onc, Allergic/Immunologic, Gastrointestinal, Genitourinary, Integumentary, Endocrine and Eyes/Ears/Nose/Throat and Yes, Specify: Co nstitution (Trivial obesity) and Musculoskeletal (Postlaminectomy syndrome) Exam Surgical H&P Exam: Normal: HEENT, Normal: Heart, Normal: Lungs, Normal: Extremities, Normal: Abdomen, Normal: Skin and Normal: Neurological Plan Diagnosis/Plan: Unchanged I have reviewed the history and physical and performed a pertinent physical examination on my patient. No changes have occurred unless specified. Time Spent With Patient Time: Total time managing care of this patient today ____ minutes.
[2024-09-05] MEDS: Lactated Ringers 1,000 ML 100 ML IVCONT (10:13)
--- NOTE | 2024-09-05 10:20 | HO.ANESPROP2 ---
[facility] Active Problems Active Problems: All Active Problems Bilateral hip joint arthritis (Acute) Malfunction of intrathecal infusion pump (Acute) Sacroiliac joint pain (Acute) Bilateral hip pain (Acute) Chronic pain syndrome (Acute) Lumbar radicular pain (Acute) Lumbosacral spondylosis (Acute) Lumbar degenerative disc disease (Acute) Failed back syndrome of lumbar spine (Acute) Past Medical History Medical History Hip pain, right Nausea Fibromyalgia Cannabis abuse, daily use Osteoarthritis Lumbar degenerative disc disease Cholelithiasis Major depressive disorder Failed back syndrome of lumbar spine Chronic pain associated with significant psychosocial dysfunction Low back pain Chronic GERD Functional capacity: independent ambulation Patient : No Family History Family history of problems with anesthesia: No Surgical History Surgical History S/P insertion of intrathecal pump History of back surgery (~2008) History of Problems with Anesthesia: No Social History Social History Are you a primary career development manager to a significant other at home: No Do you presently have visiting nurse or other home services: No Alcohol intake: current Alcohol intake frequency: holidays/special occasions only Comment: NO COUNT NEEDED Patient Tobacco Use Status: Never used Tobacco Use of substances other than those prescribed or required for medical reasons: Yes Substance Use Type Other:: vapes cbd/thc Substance Use Frequency: Daily Are you DNR?: No Advance Directives: No Advance Directives Information Provided: Yes Meds Allergies Allergy/AdvReac Type Severity Reaction Status Date / Time Penicillins Allergy Unknown Rash Verified 09/05/24 09:35 morphine AdvReac Unknown Anxiety, Verified 09/05/24 09:35 lethargy Active Medications: Current Medications Lactated Ringer's (Lr) 1,000 mls @ 100 mls/hr IVCONT .Q10H JOSE Last Admin: 09/05/24 10:13 Dose: 100 mls/hr Home Medications ?Medication ?Instructions ?Recorded ?Confirmed ?Last Taken ?Type cyclobenzaprine 5 mg tablet 5 mg PO BID PRN Muscle Pain 04/09/23 09/05/24 08/23/23 History folic acid 1 mg tablet 1 mg PO DAILY 06/09/05/24 08/23/23 History hydroxyzine pamoate 25 mg capsule 25 - 50 mg PO BEDTIME PRN Insomnia 04/09/23 09/05/24 08/23/23 History ibuprofen 600 mg tablet 600 mg PO TID PRN Pain 04/09/23 09/05/24 02/17/24 History ondansetron 4 mg disintegrating 4 mg PO TID PRN Nausea 04/09/23 09/05/24 08/24/23 05:45 History tablet pantoprazole 40 mg tablet,delayed 40 mg PO BEDTIME 04/09/23 09/05/24 08/23/23 History release meloxicam 15 mg tablet 15 mg PO QAM 02/20/24 02/20/24 02/14/24 History amitriptyline 100 mg tablet 100 mg PO BEDTIME 03/07/24 09/05/24 Unknown History Exam Height,Weight and Vital Signs: Height 5 ft 5 in Weight 90.718 kg Last Vital Signs Temp 98.5 F 09/05/24 09:47 Pulse 83 09/05/24 09:47 Resp 16 09/05/24 09:47 BP 111/68 09/05/24 09:47 Pulse Ox 97 09/05/24 09:47 O2 Del Method Room Air 09/05/24 09:47 Airway Mallampati Class: II TM Dist: >3cm Neck ROM: Full Heart: RRR Lungs: CTA Assessment and Plan Assessment Anesthesia Assessment: Anesthesia Plan Discussed and Chart Reviewed Final Anesthetic Review Family History of Problems with Anesthesia: No History of Problems with Anesthesia: No NPO: Yes ASA Class: II Final Preanesthetic Review: Meds/Allgs Chart Reviewed, Consent Obtained/Reviewed and Anes Risks/Benef Reviewed Patient Risk: Low Procedure Risk: Low Anesthetic Plan Anesthetic Plan: MAC: Disposition: Standard PACU
[2024-09-05 10:56] LABS: UPreg QC Valid YES; Urine Pregnancy NEGATIVE (NEGATIVE)
[2024-09-05 11:32] VITALS: BP 123/79; PULSE 72; RESP 16; TEMP 36.2; O2SAT 100
--- NOTE | 2024-09-05 11:32 | P.BOP_ITS ---
Brief Operative Note Date of Service: 09/05/24 Pre-op diagnosis: Hip joint arthritis bilateral, hip joint pain. Post-op diagnosis: same Procedure: Bilateral intra-articular hip joint steroid injections. Surgeon: Joseph Roman MD Anesthesia: MAC Was an Personal Injury Litigation Paralegal used for this Procedure?: No Estimated blood loss (mL): 0 Pathology: none sent Condition: stable Disposition: PACU
--- NOTE | 2024-09-05 11:33 | P.OP_ITS ---
Operative Note Operative Note Date of Service: 09/05/24 Narrative: Bilateral Intra-articular hip steroid injection. Informed consent was explained to the patient. All questions were explained and answered.? The patient was taken inside of the operating room where she was positioned left lateral decubitus on operating table. Time-out was performed delineating patient's name and date of , correct site, side, the nature of the procedure, patient's allergy, preoperative antibiotic if needed, need for VT prophylaxis. All operating room staff participated in time-out procedure..? [employer] monitors were applied and patient was minimally sedated. Right hip area of the patient was prepped with ChloraPrep and draped with sterile towels.? Sterilely draped C-arm was brought over the operating field and picture of left and right lateral views of the bilateral hip joints were delineated on the screen.? The smaller joint silhouette was chosen as the target.? Direction of the femoral neck was noted and the projection of that direction was delineated on the skin with skin markers.? Projection of the right trochanter to the skin was chosen as the initial needle insertion point.? After that the skin and subcutaneous tissues was anesthetized with 2% lidocaine 2.5 mL.? 22 gauge 5 in long needle was inserted through the skin and started to advance to the joint space under anterior posterior view.? When needle entered the capsule of the joint small amount of the contrast was injected delineating intra-articular space.? After that treatment solution containing ropivacaine 0.5% 4 mL mixed with 40 mg of Kenalog was injected into the joint.? The needle was withdrawn sterile Band-Aid was applied, after that the patient was requested to turn on right lateral decubitus position and procedure on the left hip joint was performed in mirroring fashion. The injectate was the same consisting of ropivacaine 0.5% 4 mL mixed with Kenalog 40 mg. Total dose of Kenalog was 80 mg. Upon completion of the procedure the needle was removed sterile Band-Aid was applied. Patient tolerated the procedure well.
--- NOTE | 2024-09-05 11:37 | HO.POSTANES ---
Post Anesthesia Evaluation Post Anesthesia Evaluation Date of Service: 09/12/24 Vital Signs: Vital Signs Temp Pulse Resp BP Pulse Ox O2 Del Method 09/05/24 11:32 97.2 F 72 16 123/79 100 Room Air 09/05/24 09:47 98.5 F 83 16 111/68 97 Room Air Anesthesia: Monitored Mental Status: Awake Pain Control: Satisfactory Nausea/Vomiting: None Hydration: Adequate Anesthesia-Related Issues: No Anes. Related Issues
[2024-09-05 11:45] VITALS: BP 110/76; PULSE 86; RESP 16; TEMP 36.3; O2SAT 99
== END 2024-09-05 12:35 | disposition home or self-care (01) ==
PROVIDERS: Nurse Practitioner; PCP Nurse Practitioner Family; Visit Provider Anesthesiology
PROC: (CPT 20610; principal; 2024-09-05 11:10)
DX: M25.551 Pain in right hip (principal); M25.552 Pain in left hip; G89.4 Chronic pain syndrome; M16.0 Bilateral primary osteoarthritis of hip; M53.3 Sacrococcygeal disorders, not elsewhere classified; M96.1 Postlaminectomy syndrome, not elsewhere classified; M51.369 Other intervertebral disc degeneration, lumbar region without mention of lumbar back pain or lower extremity pain; M47.817 Spondylosis without myelopathy or radiculopathy, lumbosacral region; M54.16 Radiculopathy, lumbar region; Z97.8 Presence of other specified devices; Z98.1 Arthrodesis status; M79.7 Fibromyalgia; R11.0 Nausea; F32.A Depression, unspecified; Z79.899 Other long term (current) drug therapy; Z88.0 Allergy status to penicillin; Z88.5 Allergy status to narcotic agent
CPT/HCPCS: 20610; 81025; J2003; J2704; J2795; J3010; J3301; Q9967

== ENCOUNTER → 2024-09-05 08:59 | Outpatient (BNV) | payer MEDICAID, SELFPAY | PROVIDERS: PCP Nurse Practitioner Family; Visit Provider Anesthesiology | DX: M25.551 Pain in right hip (principal); M25.552 Pain in left hip | CPT/HCPCS: 20610; 77002 ==

== ENCOUNTER 2024-11-19 11:32 | Outpatient (AMB) | payer MEDICAID, SELFPAY ==
--- NOTE | 2024-11-19 11:48 | A.OFFVIS_ITS ---
Vital Signs 11/19/24 12:05 Height 5 ft 5 in Weight 205 lb BMI 34.1 BP 156/74 H Blood Pressure Location Lt brachial Position Sitting Pulse 100 Pulse Source Pulse Oximeter Pulse Oximetry (%) 98 Oxygen Delivery Method Room Air Intake Visit Reasons: ITDD REFILL Bulb Brander Required: No Surveyor Oil Well Directional: Surveyor Oil Well Directional Present Accompanied by: Employee Allergies Penicillins Allergy (Unknown, Verified 11/19/24 12:06) Rash morphine Adverse Reaction (Unknown, Verified 11/19/24 12:06) Anxiety, lethargy Medication List - Last Reconciled 11/19/24 by Cassie Izaguirre, AMMUNITION OFFICER amitriptyline 100 mg PO BEDTIME cyclobenzaprine 5 mg PO BID PRN folic acid 1 mg PO DAILY hydroxyzine pamoate 25 - 50 mg PO BEDTIME PRN ibuprofen 600 mg PO TID PRN meloxicam 15 mg PO QAM naloxone 4 mg/actuation 4 mg intranasal Q2M PRN 1 day ondansetron 4 mg PO TID PRN pantoprazole 40 mg PO BEDTIME HPI Comments Details: Salma is back in my office for pump refill. She reports very good pain relief from the pain pump she uses PTM device with great success. At the same time lower thoracic spine appears to be very painful for her. She also reports aching pain in knees and hips. She reports pain in bilateral shoulders. It seemed to be widespread pain related to arthritis of some systemic disease. Rheumatoid arthritis can not be excluded although she is little bit too young to have this condition. I will refer her to Dr. Mack.. Her pain in the projection of the thoracic spine mostly axial and does not radiate anywhere. It appears to be facet generated pain. The pain is totally intractable. I will diagnose her today with intractable back pain. I will schedule her for T10 bilateral sprint PNS. I explained to her risks and benefits of the procedure in detail today. Today she came for pain pump refill with increase concentration of the medication 1000 micro g/1 mg hydromorphone/Dilaudid available in the pump 40 cc preservative-free normal saline. Pump refill is as below. Continues to endorse pain in bilateral hips with radiation of the pain in the groin. The pain is aggravated by lateral and medial rotation of the hip. Lateral rotation of the hip on the right results in severe pain in the groin and clicking sensation in the groin area. Most likely her hip joint arthritis got severely exacerbated at this time. This is most likely inflammatory pain and will not be amendable to escalation of the doses of the opioids. She is under my care with postlaminectomy syndrome lower back pain which is treated as a neuropathic pain with intrathecal pain pump. Recently had a revision done because her pump on the abdomen both flipped. Otherwise she is doing okay the pump report is demonstrating progression of the therapy. I will schedule her for bilateral intra-articular hip steroid injection in the operating room with minimal sedation. Past Procedures: 08/24/23: Right Hip Intra-Articular Steroid injection-30% pain relief 06/15/23: Caudal ADDY with catheter: 0% pain relief, made pain worse 04/19/23: Right Hip Intra-Articular Steroid injection-90% ongoing pain relief PRIOR: Patient is a 37 years old female with history of post laminectomy syndrome of l umbar spine, lumbar spine fusion L5-S1, chronic pain of his significant psychosocial dysfunction, depression, elevated STEPHANIE, obesity presents today with lower back pain radiating to her bilateral lateral hips and lower extremities laterally. Denies any recent trauma, injury, or falls. This has been chronic pain for the past 16 years and has been progressively getting worse. Pain affects her daily functioning, mobility, mood, sleep, social interactions and quality of life. Patient became tearful as she described her inadequate sleep for a very long time due to intractable pain in her lower back and difficulty finding the right positioning for comfort. Patient recently completed lumbar spine MRI which revealed new L4-L5 mild broad-based disc bulge with an extra foraminal protrusion and annular fissure. [id number]-ropywemi right and minimal left foraminal narrowing. Patient was recommended by her provider at [facility] to get a new spine injection which patient elected against that due to ineffective injections in the past. Currently patient is taking oxycodone which only partially alleviate her chronic back pain. I have informed patient that our office currently does not offer opioid prescribing. She was referred to us for potential spinal cord stimulator or intrathecal pump for for a more sustained pain relief. Patient is agreeable to both trials, SCS and ITDD trials, therefore I will submit referral for Behavioral Assessment today. We discussed alternative options, risk and benefits for both interventional therapies and I have provided patient and her is informational booklet today. She is also interested to get right hip intra-articular steroid and caudal ADDY with catheter injections under sedation. Patient reports she has tried physical therapy and back injections in the past and has not gained significant pain relief or improved functioning. She denies any fever, weight changes, abdominal or groin pain, bladder or bowel incontinence or saddle anesthesia. Location Low back pain and bilateral hip pain Duration Chronic back pain x16 years, progressively getting worse Characteristics of symptom or complaint Aching, spasming, tingling, shooting, shock-like, throbbing, stabbing Aggravating or associated factors Walking, standing, prolonged sitting, changing positioning, weather changes Relieving factors Oxycodone, cyclobenzaprine, amitriptyline, gabapentin, heat therapy Treatment PT, back injections, back surgery in 2008 [facility] Medical History Hip pain, right Nausea Fibromyalgia Cannabis abuse, daily use Osteoarthritis Lumbar degenerative disc disease Cholelithiasis Major depressive disorder Failed back syndrome of lumbar spine Chronic pain associated with significant psychosocial dysfunction Low back pain Chronic GERD Surgical History S/P insertion of intrathecal pump History of back surgery (~2008) Social History Are you a primary child day care teacher to a significant other at home: No Do you presently have visiting nurse or other home services: No Alcohol intake: current Alcohol intake frequency: holidays/special occasions only Patient Tobacco Use Status: Never used Tobacco Review of Systems Const All systems reviewed & are unremarkable except as noted in HPI and below ENT Reports Normal hearing present Neuro Reports Normal hearing present and Denies confusion Psych Denies confusion Physical Exam Vital Signs: Last Vital Signs Pulse 100 11/19/24 12:05 BP 156/74 H 11/19/24 12:05 Pulse Ox 98 11/19/24 12:05 Oxygen Delivery Method Room Air 11/19/24 12:05 BMI result Body Mass Index 34.1 Const General: cooperative, no acute distress, alert, awake and well groomed; No confusion, ill appearing or tired appearing Nutritional Appearance: obese Orientation/consciousness: patient oriented x3 and No confusion Limitations: no limitations Eyes General: appearance normal, both eyes and all related structures Resp Effort & Inspection: normal respiratory effort, able to speak in complete sentences, no audible wheezes, no cough, no respiratory distress and symmetric chest movement GI Inspection: Yes normal to inspection and Yes obesity Palpation (GI): Soft to palpation, nontender and no guarding Back/Spine/Pelvis Other: 3 incisions to back, flank and right abdomen s/p ITDD placement are healing well severe tenderness on palpation in the projection of the approximate T10-T11 thoracic spine, patient reports flexing back backwards aggravate her pain. Thoracic/Lumbar Spine: thoracic and lumbar spine normal to inspection, Lasegue's sign negative, straight leg raise negative bilaterally, pain with thoraco-lumbar ROM, paraspinal muscle tenderness, thoraco-lumbar ROM limited, No thoracic spinal tenderness and No lumbar spinal tenderness Neuro General: patient oriented x3 and No confusion Cranial nerves: Yes Normal hearing present Cognition (Neuro): normal cognition Extrem Other: Lateral and medial rotation of bilateral hips cause severe pain in the groin radiation of the pain to the trochanter. Clicking sensation in the right hip joint. General: Yes capillary refill normal, Yes no clubbing, cyanosis or edema and Yes no calf tenderness Psych Appearance: grossly normal and well kempt Mental Status: mental status grossly normal Speech and movement: Normal speech and movement present and Clear speech present Affect: normal affect Attitude: cooperative Thought process: Normal thought process present Thought content: Normal thought content present, suicidality (none), no hallucinations and No Depressive thoughts present Insight: Good insight present (Psych) Judgement: Good judgement present (Psych) Assessment & Plan Assessment & Plan (1) Sacroiliac joint pain: Code(s): M53.3 - Sacrococcygeal disorders, not elsewhere classified Category: Medical (2) Bilateral hip pain: Code(s): M25.551 - Pain in right hip; M25.552 - Pain in left hip Category: Medical (3) Chronic pain syndrome: Code(s): G89.4 - Chronic pain syndrome Category: Medical (4) Lumbar radicular pain: Code(s): M54.16 - Radiculopathy, lumbar region Category: Medical (5) Lumbosacral spondylosis: Code(s): M47.817 - Spondylosis without myelopathy or radiculopathy, lumbosacral region Category: Medical (6) Lumbar degenerative disc disease: Code(s): M51.36 - Other intervertebral disc degeneration, lumbar region Category: Medical (7) Failed back syndrome of lumbar spine: Code(s): M96.1 - Postlaminectomy syndrome, not elsewhere classified Category: Medical Plan: Intrathecal pump refill. THE PATIENT CAME TODAY to the office FOR THE CHANGE OF THE MEDICATION IN her PAIN PUMP. The name and date of were verified and informed consent was obtained for the procedure. ?The pump was interrogated and the residual amount of fluid was found to be 1.4 mL. SHE WAS POSITIONED supine on the bed AND THE AREA OF THE INTRATHECAL PUMP WAS PREPPED WITH CHLORAPREP. The fenestrated drape was sterilely applied over the area of the pump. Sterile gloves were worn and of the aspiration system was assembled containing 2 in 22 gauge noncoring needle, the needle was connected to extension tubing which was connected to the 20 cc sterile syringe. The pain pump was palpated under the skin in the patient's right buttock area. The needle was inserted through the skin and the central plug of the pain pump and fluid was aspirated. The clear fluid was going into the syringe the total amount of the fluid was 4.5 mL .. After that a new batch? of medication was obtained which was hydromorphone/Dilaudid 1000 micro g per mL. (new concentration) The admixture was made in the 2- 20 cc syringes prepared by [facility] compounding pharmacy. The syringe was connected to the bacterial filter, and then connected to the extension tubing. After that the medication in the syringe was slowly instilled into the pump with aspirations at 15 and 5 cc velazquez.? The pump was reprogrammed for the doses o continuous doses of hydromorphone 48 micro g per day, as well as 95 micro g of Dilaudid a day bolus duration 6 minutes lockout duration 4 hours 5 boluses per day 5 boluses in 24 hours. (8) Bilateral hip joint arthritis: Code(s): M16.0 - Bilateral primary osteoarthritis of hip Category: Medical (9) Intractable back pain: Code(s): M54.9 - Dorsalgia, unspecified Category: Medical (10) Spondylosis of thoracic region without myelopathy or radiculopathy: Code(s): M47.814 - Spondylosis without myelopathy or radiculopathy, thoracic region Category: Medical (11) Rheumatoid arthritis: Code(s): M06.9 - Rheumatoid arthritis, unspecified Category: Medical Plan I will refill her pump again in 76 days from now. Due to intractable nature of the thoracic back pain I offered her sprint PNS. Patient agreed to go for the procedure. With diagnosis of intractable back pain I will schedule her for 2 PNS procedures 2 weeks apart. I will refer her to Dr. Mack with diagnosis of rheumatoid arthritis. Orders: Referrals Rheumatology Referral M06.9 - Rheumatoid arthritis, unspecified Patient Instructions: I here by testify that I spent 32 minutes in conversation with this patient as well as planning her care and organizing this note. Coding Level of Care Code Est Pt Level 4 (48592) Procedure Only Diagnoses Sacroiliac joint pain M53.3 Bilateral hip pain M25.551; M25.552 Chronic pain syndrome G89.4 Lumbar radicular pain M54.16 Lumbosacral spondylosis M47.817 Lumbar degenerative disc disease M51.36 Failed back syndrome of lumbar spine M96.1 Bilateral hip joint arthritis M16.0 Intractable back pain M54.9 Spondylosis of thoracic region without myelopathy or radiculopathy M47.814 Rheumatoid arthritis M06.9
[2024-11-19 12:05] VITALS: BP 156/74; PULSE 100; O2SAT 98; BMI 34.1
--- OUTSIDE RECORDS SUMMARY | 2024-11-19 13:59 | XMS_ITS | Encounter Summary ---
Author Organization [employer] Address [address] [place] [address] Care Team Providers Care Telephone Station Installer Name Role Phone Yumiko Hicks ANGELY Primary Care Provider [phone] Reason for Visit * Reason Comments Med Refill Encounter Details Date Type Department Care Team (Late st Contact Info) Description 07/23/2023 Refill [facility] MED[facility] [address] [place] [address] Gayathri Jarvis, HOMER [address] [place] [address] Nausea; Other chronic pain Social History Tobacco Use Types Packs/Day Years Used Date Smoking Tobacco: Never Smokeless Tobacco: Never Alcohol Use Standard Drinks/Week Comments Never 0 (1 standard drink = 0.6 oz pur e alcohol) Depression Answer Date Recorded Patient Health Questionnaire-2 Score 0 12/14/2022 Comments Unknown Sex and Gender Information Value Date Recorded Sex Assigned at Female 12/14/2022 7:32 AM EST Legal Sex Female 8:33 PM EDT Gender Identity Female 12/14/2022 7:32 AM EST Sexual Orientation Straight 12/14/2022 7: 32 AM EST 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 Sunday- was notified about the change of the medication, then the pharmacy stated that they were waiting for confirmation with the provider Sunday- they report having a lot of concerns with this interaction. Completely out of her pain medication, covering provider tried changing her medication without the conversation, patient has had Tylenol reactions resulting in an upset stomach in the past. Patient's is calm and appropriate during the conversation, Purnima is present with him at this time Was getting 2 weeks for the refill at the time documented in this encounter Plan of Treatment Not on file documented as of this encounter Visit Diagnoses Diagnosis Nausea Nausea alone Other chronic pain documented in this encounter Care Teams Telephone Station Installer Relationship Specialty Start Date End Date Yumiko Hicks FNP [address] [place] [address] PCP - General Family Medicine 07/06/23 documented as of this encounter
--- OUTSIDE RECORDS SUMMARY | 2024-11-19 13:59 | XMS_ITS | Encounter Summary ---
Author Organization [employer] Address [address] [place] [address] Care Team Providers Care Counter Top Assembler Name Role Phone Yumiko Hicks OPERATIONS RESEARCH MANAGER Primary Care Provider [phone] Reason for Visit * Reason Onset Date Comments Med Refill 10/30/2024 Encounter Details Date Type Department Care Team (Late st Contact Info) Description 10/30/[address] [facility] MED[facility] [address] [place] [address] Willa Rangel DO [address] [place] [address] Nausea Social History Tobacco Use Types Packs/Day Years Used Date Smoking Tobacco: Never Passive Smoke Exposure: Never Smokeless Tobacco: Never Alcohol Use Standard Drinks/Week Comments Never 0 (1 standard drink = 0.6 oz pur e alcohol) Alcohol Answer Date Recorded How often do you have a drink containing alcohol ? 0 09/24/2024 How many drinks containing a lcohol do you have on a typical day when you are drinking? 0 09/24/2024 How often do you have six or more drinks on one occasion? 0 09/24/2024 Housing Stability Answer Date Recorded What is your housing situation today? I have meir chavarria 09/24/[address] you li ve. Do you have problems with any of the following? None of the above 09/24/2024 Food Insecurity Answer Date Recorded Within the past 12 months, y ou worried that your food would run out before you got money to buy more: Never True 09/24/2024 Within the past 12 months,th e food you bought just didn't last and you didn't have enough money to get more: Never True 01/2024 Transportation Answer Date Recorded In the past 12 months, has l ack of transportation kept you from medical appts, meetings, work or from getting things needed for daily living? No 09/24/2024 Intimate Partner Violence Answer Date R ecorded Within the last year, have y ou been afraid of your partner or ex-partner? 2 09/24/2024 Within the last year, have y ou been humiliated or emotionally abused in other ways by your partner or ex-partner? 2 Within the last year, have y ou been kicked, hit, slapped, or otherwise physically hurt by your partner or ex-partner? 2 09/24/2024 Within the last year, have y ou been raped or forced to have any kind of sexual activity by your partner or ex-partner? 2 09/24/2024 Utilities Answer Date Recorded In the past 12 months, has t he electric, gas, oil or water company threatened to shut off services in your home? No 09/24/2024 Depression Answer Date Recorded Patient Health Questionnaire-2 Score 0 09/24/2024 Internet Access Answer Date Recorded Internet Access Q1 Yes 09/24/2024 Internet Access Q2 Not on file 09/24/2024 Education Answer Date Recorded What is the highest level of school you have completed or the highest degree you have received? GED or equivalent Comments No Sex and Gender Information Value Date Recorded Sex Assigned at Female 12/14/2022 7:32 AM EST Legal Sex Female 8:33 PM EDT Gender Identity Female 12/14/2022 7:32 AM EST Sexual Orientation Straight 12/14/2022 7: 32 AM EST Occupation Industry Job Start Date Job End Date In the process of starting diablilty Not on file Not on file Not on file documented as of this encounter Plan of Treatment Not on file documented as of this encounter Visit Diagnoses Diagnosis Nausea Nausea alone documented in this encounter Care Teams Counter Top Assembler Relationship Specialty Start Date End Date Yumiko Hicks FNP [address] [place] [address] PCP - General Family Medicine 07/06/23 documented as of this encounter
--- OUTSIDE RECORDS SUMMARY | 2024-11-19 13:59 | XMS_ITS | Encounter Summary ---
Author Organization [employer] Address [address] [place] [address] Care Team Providers Care Head Track Coach Name Role Phone Yumiko Hicks ANGELY Primary Care Provider [phone] Encounter Details Date Type Department Care Team (Late st Contact Info) Description 11/08/2024 Orders Only [place] [facility] MED[facility] [address] [place] [address] Provider, MD Gavi Social History Tobacco Use Types Packs/Day Years [...] on file documented as of this encounter Procedures Procedure Name Priority Date/Time Associated Diagnosis Comments IR FLUOROSCOPY Routine 07/08/2024 5:45 PM EDT documented in this encounter Results * IR Fluoroscopy (07/08/2024 5:45 PM EDT) Anatomical Region Laterality Modality X-Ray Angiograph y us Historical Provider MD JOYA IR PROCEDURES Final R esult documented in this encounter Visit Diagnoses Not on filedocumented in this encounter Care Teams Head Track Coach Relationship Specialty Start Date End Date Yumiko Hicks FNP [address] [place] [address] PCP - General Family Medicine 07/06/23 documented as of this encounter
--- OUTSIDE RECORDS SUMMARY | 2024-11-19 13:59 | XMS_ITS | Encounter Summary ---
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
--- OUTSIDE RECORDS SUMMARY | 2024-11-19 14:00 | XMS_ITS | Clinical Summary ---
Author Organization [employer] Address [address] [facility] 7t [place] [address] Care Team Providers Care Claims Coordinator Name Role Phone Yumkio Hicks ANGELY Primary Care Provider [phone] Allergies Active Allergy Reactions Criticality Noted Date Comments Duloxetine Hcl Dizziness 09/28/2022 Morphine Dizziness 09/28/2022 Penicillin G Hives 09/28/2022 Medications pantoprazole (ProtoNix) 40 MG EC tablet Take 40 mg by mouth. 023 Active fluticasone (Flonase) 50 MCG/ACT nasal sprayIndications: Seasonal allergies Administer 2 sprays into each nostril in the morning. Shake gently. Before first use, prime pump. After use, clean tip and replace cap. 16 g 3 023 Active meloxicam (Mobic) 15 MG tabletIndications :Other chronic pain TAKE 1 TABLET BY MOUTH EVERY DAY IN THE MORNING 30 tablet 1 024 Active cyclobenzaprine (Flexeril) 5 MG tabletIndications :Other chronic pain TAKE 1 TABLET (5 MG) BY MOUTH TWICE DAILY NEEDED FOR MUSCLE SPASMS. 60 tablet 024 Active folic acid (Folvite) 1 MG tabletIndications :Chronic bilateral low back pain with right-sided sciatica Take 1 tablet (1,000 mcg) by mouth in the morning. 90 tablet 3 024 Active hydrOXYzine pamoate (Vistaril) 25 MG capsuleIndication s:Sleep disorder, unspecified TAKE 1-2 CAPSULES BY MOUTH AT BEDTIME DAILY NEEDED FOR 14 DAYS 28 capsule 024 Active naloxone (Narcan) 4 mg/0.1 mL nasal spray PLEASE SEE ATTACHED FOR DETAILED DIRECTIONS 09/18/2 024 Active amitriptyline (Elavil) 100 MG tabletIndications :Other chronic pain TAKE 1 TABLET BY MOUTH EVERYDAY AT BEDTIME 30 tablet 2 024 Active ondansetron ODT (Zofran-ODT) 4 MG disintegrating tabletIndications :Nausea DISSOLVE 1 TABLET ON TONGUE 3 TIMES PER DAY NEEDED FOR 14 DAYS 42 tablet 025 Active ondansetron ODT (Zofran-ODT) 4 MG disintegrating tabletIndications :Nausea DISSOLVE 1 TABLET ON TONGUE 3 TIMES PER DAY NEEDED FOR 14 DAYS 42 tablet 024 2024 Discontinued(R eorder (will not trigger notification to Pharmacy)) Active Problems Problem Noted Date Diagnosed Date Presence of intrathecal pump 04/30/2024 Overview (04/30/2024): Images from the original note were not included. 04/17/24 [facility]/Jessie SANCHES: intrathecal med refill. Class 1 obesity 10/29/2023 10/29/2023 Osteoarthritis of both hips 01/30/2023 Trochanteric bursitis of both hips 01/30/2023 STEPHANIE positive 01/30/2023 Chronic nausea 01/30/2023 Personal history of COVID-19 12/13/2022 Overview (12/13/2022): 06/2022 Pes planus of both feet 12/13/2022 Sleep disturbance 10/13/2022 Overview (10/18/2023): Has Sleep Med consult - was told she didn't need a sleep study. Fibromyalgia 09/28/2022 Acute back pain with sciatica 09/28/2022 Anxiety 09/28/2022 Cholelithiasis without obstruction 09/28/2022 Lumbar post-laminectomy syndrome 09/28/2022 Gastroesophageal reflux disease without esophagi tis 09/28/2022 Low back pain with right-sided sciatica 09/28/20 Overview (03/13/2024): Images from the original note were not included. ITDD implant 5/3 for chronic back pain via pain management Other chronic pain 09/28/2022 Overview (09/15/2024): Images from the original note were not included. Engaged with pain management. Seen by rheumatology 01/23/23; note reviewed: Localized primary OA of hip moderate bilat on x-ryay, trochanteric bursitis bilat, fibromyalgia, uncontrolled anxiety. Recommend tapering off gabapentin and muscle relaxer as may be contributor to memory concerns and gait issues then consider Cymbalta or Savella. Sleep study to r/o sleep apnea; Awaiting alternative cloth edge singer in [place] - Has appointment Oct/Nov 2023. Seen by physical medicine 01/30/23; note reviewed; Had MRI 02/2022 which revealed new L4-L5 mild broad based disc bulge with extraforaminal protrusion and annular fissure, mild to mod right and minimal left foraminal narrowing. Declined referral for spin injection; discussed referral to [place] or [facility] pain specialist for potential spinal cord stimulator or intrathecal pump for pain management. Recommended also sleep management evaluation. 08/07/23 Joseph SANCHES intrathecal pain pump trial - had 5.5 hours without pain. Is hoping to have pain pump done in the next 1-2 months. 10/29/23 - unexpected + Fentanyl on drug tox. Reports 's fentanyl patch fell off and attached to her at night. Reports is now using patch covers. 08/2024 Pain Management Note: 09/15/24: Engaged with pain management, has intrathecal pain pump. Pt reporting excruciating pain in upper back. No upper back imaging, no note in pain management consults re: upper back pain. Pt reports this is her baseline, but is crying in pain throughout the visit. Requesting something for the pain - however unable to do PE due to telehealth visit, no upper back imaging - etiology of pain unclear at this time. Advised ER due to her level of pain. Recurrent fever 09/28/2022 Right hip pain 09/28/2022 Overview (10/18/2023): Majority of chronic pain is in hips, R>L. Had hip injections with pain management, told it is bursitis. Has mild LE weakness, R>L. Has not yet been evaluated by orthopedics. Discussed options - will refer to ortho for further evaluation. History of lumbar fusion 10/22/2008 Resolved Problems Problem Noted Date Diagnosed Date Resolved Date Collagen disorder 09/28/2022 10/29/2023 Encounters Date Type Department Care Team Description 11/08/[address] [facility] MEDICAL [address] [place] [address] ProviderGavi MD 10/30/[address] [address] Willa Rangel, Nausea 10/16/[address] [address] Willa Rangel, Nausea 10/09/[address] [address] Willa Rangel, Other chronic pain 09/24/2024 12:30 PM EST Office Visit [address] [address] Jessica Clemente MD Chronic midline thoracic back pain (Primary Dx); Other chronic pain; Osteoarthritis of both hips, unspecified osteoarthritis type; Anxiety; Trochanteric bursitis of both hips 09/24/[address] [address] Willa Rangel, Nausea 09/15/2024 6:40 PM EST Telemedicine [address] [address] Yumiko Hicks, ACADEMIC AFFAIRS SPECIALIST Other chronic pain (Primary Dx) 09/09/[address] [address] Walter Hicksanda, ACADEMIC AFFAIRS SPECIALIST Other chronic pain 08/25/[address] [address] Yumiko Hicks, ACADEMIC AFFAIRS SPECIALIST Nausea from Last 3 Months Family History Medical History Relation Name Comments Arthritis Father ? RA Lung cancer Maternal Grandfather smoker Maternal Grandfather Lung cancer Maternal Grandmother smoker Maternal Grandmother Arthritis Mother Fibromyalgia Mother Ulcerative colitis Mother neck surgery Mother spinal issues Mother Breast cancer Mother's Sister Relation Name Status Comments Father Alive Maternal Grandfather Maternal Grandmother Mother Alive Mother's Sister Social History Tobacco Use Types Packs/Day Years Used Date Smoking Tobacco: Never Passive Smoke Exposure: Never Smokeless Tobacco: Never Tobacco Cessation:Counseling Given: Not Answered Alcohol Use Standard Drinks/Week Comments Never 0 [...] file Not on file Not on file Last Filed Vital Signs Vital Sign Reading Time Taken Comments Blood Pressure 118/81 09/24/2024 12:37 PM EST Pulse 96 09/24/2024 12:37 PM EST Temperature 36.3 ??C (97.3 ??F) 09/24/2024 12:[address] Respiratory Rate 16 02/22/2023 10:54 AM EDT Oxygen Saturation 98% 09/24/2024 12:37 PM EST Inhaled Oxygen Concentration - - Weight 94.3 kg (208 lb) 09/24/2024 12:37 PM EST Height 162.6 cm (5' 4 ) 09/24/2024 12:37 PM EST Body Mass Index 35.7 09/24/2024 12:37 PM EST Plan of Treatment Health Maintenance Due Date Last Done Comments HIV Screening 1986 DTaP/Tdap/Td Vaccines (1 - Tdap) 2005 Hepatitis B Vaccines (1 of 3 - 19+ 3-dose series) 2005 Pap Smear 2007 Cervical Cancer Screening 2016 HPV/Cotest 2016 COVID-19 Vaccine ( - 2023-2 5 season) 2024 Influenza Vaccine (#1) 2024 Alcohol/Substance Use Screening 09/24/2025 09/24/2024 Depression Screening 09/24/2025 09/24/2024, 09/24/2024 Family Planning (PISQ) 09/24/2025 09/24/2024 SDOH Screening 09/24/2025 09/24/2024 Tobacco Screening 09/24/2025 09/24/2024 Zoster Vaccines (1 of 2) 2036 RSV Patients and Patients Aged 60 years or older (1 - 1-dose 75+ series) 2061 Hepatitis C Screening Completed 10/06/2021 , 10/06/2021 HIB Vaccines Aged Out No longer eligi ble based on patient's age to complete this topic HPV Vaccines Aged Out No longer eligi ble based on patient's age to complete this topic Hepatitis A Vaccines Aged Out No long er eligible based on patient's age to complete this topic IPV Vaccines Aged Out No longer eligi ble based on patient's age to complete this topic Meningococcal Vaccine Aged Out No eber ankur eligible based on patient's age to complete this topic Pneumococcal Vaccine: Pediatrics (0 to 5 Years) and At-Risk Patients (6 to 49) Years) Aged Out No longer eligible b ased on patient's age to complete this topic RSV under 20 months Aged Out No longe r eligible based on patient's age to complete this topic Rotavirus Vaccines Aged Out No longer eligible based on patient's age to complete this topic Procedures Procedure Name Priority Date/Time Associated Diagnosis Comments HEPATITIS C ANTIBODY Routine 10/06/2021 from Last 3 Months or Most Recently Relevant to Health Maintenance Results * Hepatitis C Ab (10/06/2021) Hepatitis C Antibody Negative 10/06/2021 Historical Provider LAB BLOOD ORDERABLES Deb l Result from Last 3 Months or Most Recently Relevant to Health Maintenance Insurance [employer] * Guarantor: Purnima Weinstein Account Type Relation to Patient Date of Phone Billing Address Personal/Family Self [address] [place] Care Teams Claims Coordinator Relationship Specialty Start Date End Date Yumiko Hicks FNP [address] [place] [address] PCP - General Family Medicine 07/06/23
--- OUTSIDE RECORDS SUMMARY | 2024-11-19 14:00 | XMS_ITS | Encounter Summary ---
Author Organization [employer] Address [address] [facility] 7t [place] [address] Care Team Providers Care Lockstitch Zipper Setter Name Role Phone Stormy PimentelP Primary Care Provider Un available Yumiko Hicks Primary Care Provider [phone] Encounter Details Date Type Department Care Team (Late st Contact Info) Description 09/28/2022 Abstract Lashanda [facility] MEDICAL [address] [place] [address] Meli Guerrero [place] Social History Tobacco Use Types Packs/Day Years Used Date Smoking Tobacco: Never Assessed Comments Unknown Sex and Gender Information Value Date Recorded Sex Assigned at Female 12/14/2022 7:32 AM EST Legal Sex Female 8:33 PM EDT Gender Identity Female 12/14/2022 7:32 AM EST Sexual Orientation Straight 12/14/2022 7: 32 AM EST documented as of this encounter Plan of Treatment Not on file documented as of this encounter Visit Diagnoses Not on filedocumented in this encounter Care Teams Lockstitch Zipper Setter Relationship Specialty Start Date End Date Stormy Pimentel FNP PCP - General Family Medicine 10/30/22 07/05/23 Yumiko Hicks FNP [address] [place] [address] PCP - General Family Medicine 07/06/23 documented as of this encounter
--- OUTSIDE RECORDS SUMMARY | 2024-11-19 14:00 | XMS_ITS | Encounter Summary ---
Author Organization [employer] Address [address] [facility] 7t [place] [address] Care Team Providers Care Hurricane Tracker Name Role Phone Yumiko Hicks Primary Care Provider [phone] Reason for Visit * Reason Onset Date Comments Med Refill 10/23/2023 Encounter Details Date Type Department Care Team (Late st Contact Info) Description 10/23/2023 Refill Lashanda [facility] MEDICAL [address] [place] [address] Yumiko Hicks FNP [address] [place] [address] Other chronic pain Social History Tobacco Use Types Packs/Day Years Used Date Smoking Tobacco: Never Smokeless Tobacco: Never Alcohol Use Standard Drinks/Week Comments Never 0 (1 standard drink = 0.6 oz pur e alcohol) Housing Stability Answer Date Recorded What is your housing situation today? I have meir chavarria 08/06/[address] you li ve. Do you have problems with any of the following? None of the above 08/06/2023 Food Insecurity Answer Date Recorded Within the past 12 months, y ou worried that your food would run out before you got money to buy more: Never True 08/06/2023 Within the past 12 months,th e food you bought just didn't last and you didn't have enough money to get more: Never True Transportation Answer Date Recorded In the past 12 months, has l ack of transportation kept you from medical appts, meetings, work or from getting things needed for daily living? No 08/06/2023 Utilities Answer Date Recorded In the past 12 months, has t he [employer], [employer], oil or water [employer] threatened to shut off services in your home? 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
== END 2024-11-19 12:09 | disposition home or self-care (01) ==
PROVIDERS: PCP Nurse Practitioner Family; Visit Provider Anesthesiology
DX: M53.3 Sacrococcygeal disorders, not elsewhere classified (principal); M25.551 Pain in right hip; M25.552 Pain in left hip; G89.4 Chronic pain syndrome; Z45.1 Encounter for adjustment and management of infusion pump; M54.16 Radiculopathy, lumbar region; M47.817 Spondylosis without myelopathy or radiculopathy, lumbosacral region; M51.369 Other intervertebral disc degeneration, lumbar region without mention of lumbar back pain or lower extremity pain; M96.1 Postlaminectomy syndrome, not elsewhere classified; M16.0 Bilateral primary osteoarthritis of hip; M54.9 Dorsalgia, unspecified; M47.814 Spondylosis without myelopathy or radiculopathy, thoracic region; M06.9 Rheumatoid arthritis, unspecified
CPT/HCPCS: 62370; 99214

== ENCOUNTER → 2024-11-19 11:32 | Outpatient (BNVA) | payer MEDICAID, SELFPAY | PROVIDERS: PCP Nurse Practitioner Family; Visit Provider Anesthesiology | DX: M53.3 Sacrococcygeal disorders, not elsewhere classified (principal); G89.4 Chronic pain syndrome; M54.16 Radiculopathy, lumbar region; M47.817 Spondylosis without myelopathy or radiculopathy, lumbosacral region; M51.369 Other intervertebral disc degeneration, lumbar region without mention of lumbar back pain or lower extremity pain; M96.1 Postlaminectomy syndrome, not elsewhere classified; M16.0 Bilateral primary osteoarthritis of hip; M47.814 Spondylosis without myelopathy or radiculopathy, thoracic region; M06.9 Rheumatoid arthritis, unspecified; Z45.1 Encounter for adjustment and management of infusion pump; Z79.899 Other long term (current) drug therapy | CPT/HCPCS: 62370; 99212 ==

== ENCOUNTER 2025-01-20 06:17 | Outpatient (REF) | payer MEDICAID, SELFPAY ==
--- OUTSIDE RECORDS SUMMARY | 2025-01-20 06:21 | XMS_ITS | Encounter Summary ---
Author Organization [employer] Address [address] [facility] 7t [place] [address] Care Team Providers Care Family Medicine Physician Assistant Name Role Phone Stormy PimentelP Primary Care Provider Un available Yumiko Hicks Primary Care Provider [phone] Encounter Details Date Type Department Care Team (Late st Contact Info) Description 09/28/2022 Abstract Lashanda [facility] MEDICAL [address] [place] [address] Meli Guerrero [place] Social History Tobacco Use [...] on filedocumented in this encounter Care Teams Family Medicine Physician Assistant Relationship Specialty Start Date End Date Stormy Pimentel FNP PCP - General Family Medicine 10/30/22 07/05/23 Yumiko Hicks FNP [address] [place] [address] PCP - General Family Medicine 07/06/23 documented as of this encounter
--- OUTSIDE RECORDS SUMMARY | 2025-01-20 06:21 | XMS_ITS | Clinical Summary ---
Author Organization [employer] Address [address] [facility] 7t [place] [address] Care Team Providers Care Director Acute Name Role Phone Yumiko Hicks ANGELY Primary Care Provider [phone] Allergies Active Allergy Reactions Criticality Noted Date Comments Duloxetine Hcl Dizziness 09/28/2022 Morphine Dizziness 09/28/2022 Penicillin G Hives 09/28/2022 Medications pantoprazole (ProtoNix) 40 MG EC tablet Take 40 mg by mouth. 02/06/20 23 Active fluticasone (Flonase) 50 MCG/ACT nasal sprayIndications: Seasonal allergies Administer 2 sprays into each nostril in the morning. Shake gently. Before first use, prime pump. After use, clean tip and replace cap. 16 g 3 02/23/20 23 Active meloxicam (Mobic) 15 MG tabletIndications :Other chronic pain TAKE 1 TABLET BY MOUTH EVERY DAY IN THE MORNING 30 tablet 1 04/23/20 24 Active cyclobenzaprine (Flexeril) 5 MG tabletIndications :Other chronic pain TAKE 1 TABLET (5 MG) BY MOUTH TWICE DAILY NEEDED FOR MUSCLE SPASMS. 60 tablet 08/05/20 24 Active folic acid (Folvite) 1 MG tabletIndications :Chronic bilateral low back pain with right-sided sciatica Take 1 tablet (1,000 mcg) by mouth in the morning. 90 tablet 3 08/05/20 24 Active hydrOXYzine pamoate (Vistaril) 25 MG capsuleIndication s:Sleep disorder, unspecified TAKE 1-2 CAPSULES BY MOUTH AT BEDTIME DAILY NEEDED FOR 14 DAYS 28 capsule 08/05/20 24 Active naloxone (Narcan) 4 mg/0.1 mL nasal spray PLEASE SEE ATTACHED FOR DETAILED DIRECTIONS 09/18/20 24 Active ondansetron ODT (Zofran-ODT) 4 MG disintegrating tabletIndications :Nausea DISSOLVE 1 TABLET ON TONGUE 3 TIMES A DAY NEEDED FOR 14 DAYS 42 tablet 12/17/19 25 Active amitriptyline (Elavil) 100 MG tabletIndications :Other chronic pain TAKE 1 TABLET BY MOUTH EVERYDAY AT BEDTIME 30 tablet 2 01/02/20 25 Active amitriptyline (Elavil) 100 MG tabletIndications :Other chronic pain TAKE 1 TABLET BY MOUTH EVERYDAY AT BEDTIME 30 tablet 2 10/09/20 24 2024 Discontinued Active Problems Problem Noted Date Diagnosed Date Presence of intrathecal pump 04/30/2024 Overview (04/30/2024): Images from the original note were not included. 04/17/24 [facility]/Jessie SANCHES: intrathecal med refill. [...] study to r/o sleep apnea; Awaiting alternative filling hauler in [place] - Has appointment Oct/Nov 2023. Seen by physical medicine 01/30/23; note reviewed; Had MRI 02/2022 which revealed new L4-L5 mild broad based disc bulge with extraforaminal protrusion and annular fissure, mild to mod right and minimal left foraminal narrowing. Declined referral for spin injection; discussed referral to [place] or [facility] pain specialist for potential spinal cord stimulator [...] Encounters Date Type Department Care Team Description 01/02/2025 Population Health Risk Score [facility] () Department [address] [place] [phone] Provider, Population Health Generic 01/01/[address] [facility] MEDICAL [address] [place] [address] Willa Rangel, DO Other chronic pain 12/16/[address] [facility] MED[facility] [address] [place] [address] Willa Rangel, DO Nausea 11/20/2024 Refill [facility] [address] [place] [address] Brittni Kemp, HVAC SERVICE MANAGER Nausea 11/08/2024 Orders Only [facility] MEDICAL [address] [place] [address] Provider, MD Gavi 10/30/2024 Refill [facility] [address] [place] [address] Willa Rangel, DO Nausea from Last 3 Months Family History [...] Cancer Screening 2016 HPV/Cotest 2016 COVID-19 Vaccine (1 - 2023-2 5 season) 2024 Influenza Vaccine [...] Ab (10/06/2021) Hepatitis C Antibody Negative 10/06/2021 [facility] Provider LAB BLOOD ORDERABLES Deb l Result from Last 3 Months or Most Recently Relevant to Health Maintenance [facility] Care Teams Director Acute Relationship Specialty Start Date End Date Yumiko Hicks FNP [address] [place] [address] PCP - General Family Medicine 07/06/23
--- OUTSIDE RECORDS SUMMARY | 2025-01-20 06:21 | XMS_ITS | Encounter Summary ---
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
--- OUTSIDE RECORDS SUMMARY | 2025-01-20 06:21 | XMS_ITS | Encounter Summary ---
Author Organization [employer] Address [address] [facility] 7t [place] [address] Care Team Providers Care Test Operator Name Role Phone Yumiko Hicks ANGELY Primary Care Provider [phone] Encounter Details Date Type Department Care Team (Late st Contact Info) Description 11/08/2024 Orders Only [facility] MEDICAL [address] [place] [address] Provider, MD Gavi Social History Tobacco Use [...] on filedocumented in this encounter Care Teams Test Operator Relationship Specialty Start Date End Date Yumiko Hicks FNP [address] [place] [address] PCP - General Family Medicine 07/06/23 documented as of this encounter
--- OUTSIDE RECORDS SUMMARY | 2025-01-20 06:21 | XMS_ITS | Encounter Summary ---
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
== END 2025-01-20 06:18 | disposition home or self-care (01) ==
LOC: CF 06:17
PROVIDERS: Visit Provider Anesthesiology
DX: Z13.89 Encounter for screening for other disorder (principal)

== ENCOUNTER 2025-02-02 11:25 | Outpatient (AMB) | payer MEDICAID, SELFPAY ==
[2025-02-02 12:04] VITALS: BP 125/73; PULSE 86; O2SAT 98; BMI 32.1
--- NOTE | 2025-02-02 12:04 | A.OFFVIS_ITS ---
Vital Signs 02/02/25 12:04 Height 5 ft 5 in Weight 193 lb BMI 32.1 BP 125/73 Blood Pressure Location Rt brachial Position Sitting Pulse 86 Pulse Source Pulse Oximeter Pulse Oximetry (%) 98 Oxygen Delivery Method Room Air Intake Visit Reasons: ITDD Refill Ceramics Instructor Required: No Allergies Penicillins Allergy (Unknown, Verified 02/02/25 12:05) Rash morphine Adverse Reaction (Unknown, Verified 02/02/25 12:05) Anxiety, lethargy Medication List - Last Reconciled 02/02/25 by Cassie Izaguirre, BUSINESS SYSTEMS LEAD amitriptyline 100 mg PO BEDTIME cyclobenzaprine 5 mg PO BID PRN folic acid 1 mg PO DAILY hydroxyzine pamoate 25 - 50 mg PO BEDTIME PRN ibuprofen 600 mg PO TID PRN meloxicam 15 mg PO QAM naloxone 4 mg/actuation 4 mg intranasal Q2M PRN 1 day ondansetron 4 mg PO TID PRN pantoprazole 40 mg PO BEDTIME HPI Comments Details: Salma is back in my office for pump refill. She reports difficulty application PTM device due to malfunction of the PTM phone. She rescheduled her thoracic spine sprint PNS due to difficulty with transportation. Her pain in the projection of the thoracic spine mostly axial and does not radiate anywhere. It appears to be facet generated pain. Her pain is intractable and I schedule her for bilateral sprint PNS. Today she came for pain pump refill with increase concentration of the medication 1000 micro g/1 mg hydromorphone/Dilaudid available in the pump 40 cc preservative-free normal saline. Pump refill is as below. Continues to endorse pain in bilateral hips with radiation of the pain in the groin. The pain is aggravated by lateral and medial rotation of the hip. Lateral rotation of the hip on the right results in severe pain in the groin and clicking sensation in the groin area. Most likely her hip joint arthritis got severely exacerbated at this time. This is most likely inflammatory pain and will not be amendable to escalation of the doses of the opioids. She is under my care with postlaminectomy syndrome lower back pain which is treated as a neuropathic pain with intrathecal pain pump. Recently had a revision done because her pump on the abdomen both flipped. Otherwise she is doing okay the pump report is demonstrating progression of the therapy. I will schedule her for bilateral intra-articular hip steroid injection in the operating room with minimal sedation. Past Procedures: 08/24/23: Right Hip Intra-Articular Steroid injection-30% pain relief 06/15/23: Caudal ADDY with catheter: 0% pain relief, made pain worse 04/19/23: Right Hip Intra-Articular Steroid injection-90% ongoing pain relief PRIOR: Patient is a 37 years old female with history of post laminectomy syndrome of lumbar spine, lumbar spine fusion L5-S1, chronic pain of his significant psychosocial dysfunction, depression, elevated STEPHANIE, obesity presents today with lower back pain radiating to her bilateral lateral hips and lower extremities laterally. Denies any recent trauma, injury, or falls. This has been chronic pain for the past 16 years and has been progressively getting worse. Pain affects her daily functioning, mobility, mood, sleep, social interactions and quality of life. Patient became tearful as she described her inadequate sleep for a very long time due to intractable pain in her lower back and difficulty finding the right positioning for comfort. Patient recently completed lumbar spine MRI which revealed new L4-L5 mild broad-based disc bulge with an extra foraminal protrusion and annular fissure. Qpva-gi-bhtgnsen right and minimal left foraminal narrowing. Patient was recommended by her provider at [facility] to get a new spine injection which patient elected against that due to ineffective injections in the past. Currently patient is taking oxycodone which only partially alleviate her chronic back pain. I have informed patient that our office currently does not offer opioid prescribing. She was referred to us for potential spinal cord stimulator or intrathecal pump for for a more sustained pain relief. Patient is agreeable to both trials, SCS and ITDD trials, therefore I will submit referral for Behavioral Assessment today. We discussed alternative options, risk and benefits for both interventional therapies and I have provided patient and her is informational booklet today. She is also interested to get right hip intra-articular steroid and caudal ADDY with catheter injections under sedation. Patient reports she has tried physical therapy and back injections in the past and has not gained significant pain relief or improved functioning. She denies any fever, weight changes, abdominal or groin pain, bladder or bowel incontinence or saddle anesthesia. Location Low back pain and bilateral hip pain Duration Chronic back pain x16 years, progressively getting worse Characteristics of symptom or complaint Aching, spasming, tingling, shooting, shock-like, throbbing, stabbing Aggravating or associated factors Walking, standing, prolonged sitting, changing positioning, weather changes Relieving factors Oxycodone, cyclobenzaprine, amitriptyline, gabapentin, heat therapy Treatment PT, back injections, back surgery in 2008 [facility] Medical History Hip pain, right Nausea Fibromyalgia Cannabis abuse, daily use Osteoarthritis Lumbar degenerative disc disease Cholelithiasis Major depressive disorder Failed back syndrome of lumbar spine Chronic pain associated with significant psychosocial dysfunction Low back pain Chronic GERD Surgical History S/P insertion of intrathecal pump History of back surgery (~2008) Social History Are you a primary day care provider to a significant other at home: No Do you presently have visiting nurse or other home services: No Alcohol intake: current Alcohol intake frequency: holidays/special occasions only Patient Tobacco Use Status: Never used Tobacco Review of Systems Const All systems reviewed & are unremarkable except as noted in HPI and below ENT Reports Normal hearing present Neuro Reports Normal hearing present and Denies confusion Psych Denies confusion Physical Exam Vital Signs: Last Vital Signs Pulse 86 02/02/25 12:04 BP 125/73 02/02/25 12:04 Pulse Ox 98 02/02/25 12:04 Oxygen Delivery Method Room Air 02/02/25 12:04 BMI result Body Mass Index 32.1 Const General: cooperative, no acute distress, alert, awake and well groomed; No confusion, ill appearing or tired appearing Nutritional Appearance: obese Orientation/consciousness: patient oriented x3 and No confusion Limitations: no limitations Eyes General: appearance normal, both eyes and all related structures Resp Effort & Inspection: normal respiratory effort, able to speak in complete sentences, no audible wheezes, no cough, no respiratory distress and symmetric chest movement GI Inspection: Yes normal to inspection and Yes obesity Palpation (GI): Soft to palpation, nontender and no guarding Back/Spine/Pelvis Other: 3 incisions to back, flank and right abdomen s/p ITDD placement are healing well severe tenderness on palpation in the projection of the approximate T10-T11 thoracic spine, patient reports flexing back backwards aggravate her pain. Thoracic/Lumbar Spine: thoracic and lumbar spine normal to inspection, Lasegue's sign negative, straight leg raise negative bilaterally, pain with thoraco-lumbar ROM, paraspinal muscle tenderness, thoraco-lumbar ROM limited, No thoracic spinal tenderness and No lumbar spinal tenderness Neuro General: patient oriented x3 and No confusion Cranial nerves: Yes Normal hearing present Cognition (Neuro): normal cognition Extrem Other: Lateral and medial rotation of bilateral hips cause severe pain in the groin radiation of the pain to the trochanter. Clicking sensation in the right hip joint. General: Yes capillary refill normal, Yes no clubbing, cyanosis or edema and Yes no calf tenderness Psych Appearance: grossly normal and well kempt Mental Status: mental status grossly normal Speech and movement: Normal speech and movement present and Clear speech present Affect: normal affect Attitude: cooperative Thought process: Normal thought process present Thought content: Normal thought content present, suicidality (none), no hallucinations and No Depressive thoughts present Insight: Good insight present (Psych) Judgement: Good judgement present (Psych) Assessment & Plan Assessment & Plan (1) Sacroiliac joint pain: Code(s): M53.3 - Sacrococcygeal disorders, not elsewhere classified Category: Medical (2) Bilateral hip pain: Code(s): M25.551 - Pain in right hip; M25.552 - Pain in left hip Category: Medical (3) Chronic pain syndrome: Code(s): G89.4 - Chronic pain syndrome Category: Medical (4) Lumbar radicular pain: Code(s): M54.16 - Radiculopathy, lumbar region Category: Medical (5) Lumbosacral spondylosis: Code(s): M47.817 - Spondylosis without myelopathy or radiculopathy, lumbosacral region Category: Medical (6) Lumbar degenerative disc disease: Code(s): M51.36 - Other intervertebral disc degeneration, lumbar region Category: Medical (7) Failed back syndrome of lumbar spine: Code(s): M96.1 - Postlaminectomy syndrome, not elsewhere classified Category: Medical Plan: Intrathecal pump refill. THE PATIENT CAME TODAY to the office FOR THE CHANGE OF THE MEDICATION IN her PAIN PUMP. The name and date of were verified and informed consent was obtained for the procedure. ?The pump was interrogated and the residual amount of fluid was found to be 1.5 mL. SHE WAS POSITIONED supine on the bed AND THE AREA OF THE INTRATHECAL PUMP WAS PREPPED WITH CHLORAPREP. The fenestrated drape was sterilely applied over the area of the pump. Sterile gloves were worn and of the aspiration system was assembled containing 2 in 22 gauge noncoring needle, the needle was connected to extension tubing which was connected to the 20 cc sterile syringe. The pain pump was palpated under the skin in the patient's right buttock area. The needle was inserted through the skin and the central plug of the pain pump and fluid was aspirated. The clear fluid was going into the syringe the total amount of the fluid was 4.5 mL .. After that a new batch? of medication was obtained which was hydromorphone/Dilaudid 1000 micro g per mL. (new concentration) The admixture was made in the 2- 20 cc syringes prepared by [facility] compounding pharmacy. The syringe was connected to the bacterial filter, and then connected to the extension tubing. After that the medication in the syringe was slowly instilled into the pump with aspirations at 15 and 5 cc velazquez.? The pump was reprogrammed for the doses o continuous doses of hydromorphone 48 micro g per day, as well as 95 micro g of Dilaudid a day bolus duration 6 minutes lockout duration 4 hours 5 boluses per day 5 boluses in 24 hours. (8) Bilateral hip joint arthritis: Code(s): M16.0 - Bilateral primary osteoarthritis of hip Category: Medical (9) Intractable back pain: Code(s): M54.9 - Dorsalgia, unspecified Category: Medical (10) Spondylosis of thoracic region without myelopathy or radiculopathy: Code(s): M47.814 - Spondylosis without myelopathy or radiculopathy, thoracic region Category: Medical (11) Rheumatoid arthritis: Code(s): M06.9 - Rheumatoid arthritis, unspecified Category: Medical Plan I will refill her pump again in 76 days from now. She is rescheduling sprint PNS for the 2nd time. She reports difficulty transportation. Coding Level of Care Code Est Pt Level 3 (54723) Procedure Only Diagnoses Sacroiliac joint pain M53.3 Bilateral hip pain M25.551; M25.552 Chronic pain syndrome G89.4 Lumbar radicular pain M54.16 Lumbosacral spondylosis M47.817 Lumbar degenerative disc disease M51.36 Failed back syndrome of lumbar spine M96.1 Bilateral hip joint arthritis M16.0 Intractable back pain M54.9 Spondylosis of thoracic region without myelopathy or radiculopathy M47.814 Rheumatoid arthritis M06.9
--- OUTSIDE RECORDS SUMMARY | 2025-02-02 13:40 | XMS_ITS | Encounter Summary ---
Author Organization [employer] Address [address] [facility] 7t [place] [address] Care Team Providers Care Sales Promoter Name Role Phone Stormy PimentelP Primary Care Provider Un available Yumiko Hicks Primary Care Provider [phone] Encounter Details Date Type Department Care Team (Late st Contact Info) Description 09/28/2022 Abstract Lashanda [facility] [address] [place] [address] Meli Guerrero [place] Social History Tobacco Use [...] on filedocumented in this encounter Care Teams Sales Promoter Relationship Specialty Start Date End Date Stormy Pimentel FNP PCP - General Family Medicine 10/30/22 07/05/23 Yumiko Hicks FNP [address] [place] [address] PCP - General Family Medicine 07/06/23 documented as of this encounter
--- OUTSIDE RECORDS SUMMARY | 2025-02-02 13:40 | XMS_ITS | Encounter Summary ---
Author Organization [employer] Address [address] [facility] [address] [place] [address] Care Team Providers Care Human Resources Representative Name Role Phone Yumiko Hicks Primary Care Provider [phone] Reason for Visit * Reason Onset Date Comments Med Refill 01/30/2025 Encounter Details Date Type Department Care Team (Late st Contact Info) Description 01/30/2025 Refill Lashanda [facility] [address] [place] [address] Yumiko Hicks FNP [address] [place] [address] Other chronic pain Social History Tobacco Use [...] pain documented in this encounter Care Teams Human Resources Representative Relationship Specialty Start Date End Date Yumiko Hicks FNP [address] [place] [address] PCP - General Family Medicine 07/06/23 documented as of this encounter
--- OUTSIDE RECORDS SUMMARY | 2025-02-02 13:40 | XMS_ITS | Encounter Summary ---
Author Organization [employer] Address [address] [facility] [address] [place] [address] Care Team Providers Care Ornamental Metal Erector Name Role Phone Yumiko Hicks PROPOSAL REP Primary Care Provider [phone] Reason for Visit * Reason Onset Date Comments Med Refill 01/30/2025 Encounter Details Date Type Department Care Team (Late st Contact Info) Description 01/30/2025 Refill Lashanda [facility] [address] [place] [address] Willa Rangel DO [address] [place] [address] Nausea Social History Tobacco Use Types Packs/Day [...] alone documented in this encounter Care Teams Ornamental Metal Erector Relationship Specialty Start Date End Date Yumiko Hicks FNP [address] [place] [address] PCP - General Family Medicine 07/06/23 documented as of this encounter
--- OUTSIDE RECORDS SUMMARY | 2025-02-02 13:40 | XMS_ITS | Encounter Summary ---
Author Organization [employer] Address [address] [facility] 7t [place] [address] Care Team Providers Care Shot Lighter Name Role Phone Yumiko Hicks Primary Care Provider [phone] Reason for Visit * Reason Onset Date Comments Med Refill 10/23/2023 Encounter Details Date Type Department Care Team (Late st Contact Info) Description 10/23/2023 Refill Lashanda [facility] [address] [place] [address] Yumiko Hicks FNP [address] [facility] [place] [address] Other chronic pain Social History Tobacco Use [...] the past 12 months, has t he [employer], oil or water [employer] threatened to shut off services in your [...] 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
--- OUTSIDE RECORDS SUMMARY | 2025-02-02 13:40 | XMS_ITS | Encounter Summary ---
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
--- OUTSIDE RECORDS SUMMARY | 2025-02-02 13:41 | XMS_ITS | Encounter Summary ---
Author Organization [employer] Address [address] [facility] [address] [place] [address] Care Team Providers Care Cdl Program Coordinator Name Role Phone Yumiko Hicks ANGELY Primary Care Provider [phone] Encounter Details Date Type Department Care Team (Late st Contact Info) Description 11/08/[address] [place] [facility] [address] [place] [address] Provider, MD Gavi Social History Tobacco Use [...] on filedocumented in this encounter Care Teams Cdl Program Coordinator Relationship Specialty Start Date End Date Yumiko Hicks FNP [address] [place] [address] PCP - General Family Medicine 07/06/23 documented as of this encounter
--- OUTSIDE RECORDS SUMMARY | 2025-02-02 13:41 | XMS_ITS | Encounter Summary ---
Author Organization [employer] Address [address] [facility] 7t [place] [address] Care Team Providers Care Early Morning Babysitter Name Role Phone Yumiko Hicks ANGELY Primary Care Provider [phone] Reason for Visit * Reason Comments Med Refill Encounter Details Date Type Department Care Team (Late st Contact Info) Description 07/23/[address] 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
--- OUTSIDE RECORDS SUMMARY | 2025-02-02 13:41 | XMS_ITS | Clinical Summary ---
Author Organization [employer] Address [address] [facility] 7t [place] [address] Care Team Providers Care Special Events Coordinator Name Role Phone Yumiko Hicks ANGELY Primary Care Provider [phone] Allergies Active Allergy Reactions Criticality Noted Date [...] THE MORNING 30 tablet 1 024 Active folic acid (Folvite) 1 MG [...] spray PLEASE SEE ATTACHED FOR DETAILED DIRECTIONS 024 Active amitriptyline (Elavil) 100 MG tabletIndications :Other chronic pain TAKE 1 TABLET BY MOUTH EVERYDAY AT BEDTIME 30 tablet 2 025 Active cyclobenzaprine (Flexeril) 5 MG tabletIndications :Other chronic pain TAKE 1 TABLET (5 MG) BY MOUTH TWICE DAILY NEEDED FOR MUSCLE SPASMS. 60 tablet 025 Active ondansetron ODT (Zofran-ODT) 4 MG disintegrating tabletIndications :Nausea DISSOLVE 1 TABLET ON TONGUE 3 TIMES A DAY NEEDED FOR 14 DAYS 42 tablet 025 Active cyclobenzaprine (Flexeril) 5 MG tabletIndications :Other chronic pain TAKE 1 TABLET (5 MG) BY MOUTH TWICE DAILY NEEDED FOR MUSCLE SPASMS. 60 tablet 024 2024 Discontinued(R eorder (will not trigger notification to Pharmacy)) ondansetron ODT (Zofran-ODT) 4 MG disintegrating tabletIndications :Nausea DISSOLVE 1 TABLET ON TONGUE 3 TIMES A DAY NEEDED FOR 14 DAYS 42 tablet 025 2024 Discontinued(R eorder (will not trigger notification to Pharmacy)) Active Problems Problem Noted Date Diagnosed Date Presence of intrathecal pump 04/30/2024 Overview (04/30/2024): Images from the original note were not included. 04/17/24 [facility]/Jessie SANCHES: intrathecal med refill. [...] Low back pain with right-sided sciatica 09/28/20 22 Overview (03/13/2024): Images from the original note were not included. ITDD implant 02/21 for chronic back pain via pain management [...] study to r/o sleep apnea; Awaiting alternative control room tender in [place] - Has appointment Oct/Nov 2023. Seen by physical medicine 01/30/23; note reviewed; Had MRI 02/2022 which revealed new L4-L5 mild broad based disc bulge with extraforaminal protrusion and annular fissure, mild to mod right and minimal left foraminal narrowing. Declined referral for spin injection; discussed referral to [place] or [facility] pain specialist for potential spinal cord stimulator [...] Encounters Date Type Department Care Team Description 01/30/[address] [facility] [address] [place] [address] Willa Rangel, DO Nausea 01/30/2025 Refill [facility] [address] [place] [address] Yumiko Hicks, MEDICAL BILLING CLERK Other chronic pain 01/02/2025 Population Health Risk Score [facility] () Department [address] [place] [id number] Provider, Population Health Generic 01/01/[address] [facility] MED[facility] [address] [place] [address] Willa Rangel, DO Other chronic pain 12/16/[address] [facility] [address] [place] [address] Willa Rangel, Nausea 11/20/[address] [facility] [address] [place] [address] Brittni Kemp, MEDICAL BILLING CLERK Nausea 11/08/2024 Orders Only [facility] MED[facility] [address] [place] [address] Provider, MD Gavi from Last 3 Months Family History Medical [...] Ab (10/06/2021) Hepatitis C Antibody Negative 10/06/2021 [facility] Provider LAB BLOOD ORDERABLES Deb l Result from Last 3 Months or Most Recently Relevant to Health Maintenance Insurance [facility] C3 Care Teams Special Events Coordinator Relationship Specialty Start Date End Date Yumiko Hicks FNP [address] [place] [address] PCP - General Family Medicine 07/06/23
== END 2025-02-02 12:10 | disposition home or self-care (01) ==
LOC: HO.PMC 11:39
PROVIDERS: PCP Nurse Practitioner Family; Visit Provider Anesthesiology
DX: M53.3 Sacrococcygeal disorders, not elsewhere classified (principal); M25.551 Pain in right hip; M25.552 Pain in left hip; G89.4 Chronic pain syndrome; Z45.1 Encounter for adjustment and management of infusion pump; M54.16 Radiculopathy, lumbar region; M47.817 Spondylosis without myelopathy or radiculopathy, lumbosacral region; M51.369 Other intervertebral disc degeneration, lumbar region without mention of lumbar back pain or lower extremity pain; M96.1 Postlaminectomy syndrome, not elsewhere classified; M16.0 Bilateral primary osteoarthritis of hip; M54.9 Dorsalgia, unspecified; M47.814 Spondylosis without myelopathy or radiculopathy, thoracic region; M06.9 Rheumatoid arthritis, unspecified
CPT/HCPCS: 62370; 99213

== ENCOUNTER → 2025-02-02 11:25 | Outpatient (BNVA) | payer MEDICAID, SELFPAY | PROVIDERS: PCP Nurse Practitioner Family; Visit Provider Anesthesiology | DX: Z45.89 Encounter for adjustment and management of other implanted devices (principal); M53.3 Sacrococcygeal disorders, not elsewhere classified; M25.551 Pain in right hip; M25.552 Pain in left hip; M54.16 Radiculopathy, lumbar region; M47.817 Spondylosis without myelopathy or radiculopathy, lumbosacral region; G89.4 Chronic pain syndrome; M51.360 Other intervertebral disc degeneration, lumbar region with discogenic back pain only; M96.1 Postlaminectomy syndrome, not elsewhere classified; M16.0 Bilateral primary osteoarthritis of hip; M54.9 Dorsalgia, unspecified; M47.814 Spondylosis without myelopathy or radiculopathy, thoracic region; M06.9 Rheumatoid arthritis, unspecified | CPT/HCPCS: 62370; 99212 ==

== ENCOUNTER 2025-04-16 11:28 | Outpatient (AMB) | payer MEDICAID, SELFPAY ==
--- NOTE | 2025-04-16 11:32 | MHC.OFFVIS ---
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 She reports very stable lower back pain under action of the pain pump. She is currently receiving 527 micro g of hydromorphone a day with maximal application of the all PTM doses. She reports that her hip pain is her major problem now. She reports severe pain in the right hip related to arthritis. Unfortunately hip steroid injections were not effective to control this pain. She also wanted to follow-up on her progression of the postlaminectomy syndrome, she requested me to order her MRI of the lumbar spine. Pump refill see as below. Continues to endorse pain in bilateral hips with radiation of the pain in the groin. The pain is aggravated by lateral and medial rotation of the hip. Lateral rotation of the hip on the right results in severe pain in the groin and clicking sensation in the groin area. Most likely her hip joint arthritis got severely exacerbated at this time. This is most likely inflammatory pain and will not be amendable to escalation of the doses of the opioids. She is under my care with postlaminectomy syndrome lower back pain which is treated as a neuropathic pain with intrathecal pain pump. Recently had a revision done because her pump on the abdomen both flipped. Otherwise she is doing okay the pump report is demonstrating progression of the therapy. I will schedule her for bilateral intra-articular hip steroid injection in the operating room with minimal sedation. Past Procedures: 08/24/23: Right Hip Intra-Articular Steroid injection-30% pain relief 06/15/23: Caudal ADDY with catheter: 0% pain relief, made pain worse 04/19/23: Right Hip Intra-Articular Steroid injection-90% ongoing pain relief PRIOR: Patient is a 37 years old female with history of post laminectomy syndrome of lumbar spine, lumbar spine fusion L5-S1, chronic pain of his significant psychosocial dysfunction, depression, elevated STEPHANIE, obesity presents today with lower back pain radiating to her bilateral lateral hips and lower extremities laterally. Denies any recent trauma, injury, or falls. This has been chronic pain for the past 16 years and has been progressively getting worse. Pain affects her daily functioning, mobility, mood, sleep, social interactions and quality of life. Patient became tearful as she described her inadequate sleep for a very long time due to intractable pain in her lower back and difficulty finding the right positioning for comfort. Patient recently completed lumbar spine MRI which revealed new L4-L5 mild broad-based disc bulge with an extra foraminal protrusion and annular fissure. [id number] right and minimal left foraminal narrowing. Patient was recommended by her provider at [facility] to get a new spine injection which patient elected against that due to ineffective injections in the past. Currently patient is taking oxycodone which only partially alleviate her chronic back pain. I have informed patient that our office currently does not offer opioid prescribing. She was referred to us for potential spinal cord stimulator or intrathecal pump for for a more sustained pain relief. Patient is agreeable to both trials, SCS and ITDD trials, therefore I will submit referral for Behavioral Assessment today. We discussed alternative options, risk and benefits for both interventional therapies and I have provided patient and her is informational booklet today. She is also interested to get right hip intra-articular steroid and caudal ADDY with catheter injections under sedation. Patient reports she has tried physical therapy and back injections in the past and has not gained significant pain relief or improved functioning. She denies any fever, weight changes, abdominal or groin pain, bladder or bowel incontinence or saddle anesthesia. Location Low back pain and bilateral hip pain Duration Chronic back pain x16 years, progressively getting worse Characteristics of symptom or complaint Aching, spasming, tingling, shooting, shock-like, throbbing, stabbing Aggravating or associated factors Walking, standing, prolonged sitting, changing positioning, weather changes Relieving factors Oxycodone, cyclobenzaprine, amitriptyline, gabapentin, heat therapy Treatment PT, back injections, back surgery in 2008 [facility] Medical History Hip pain, right Nausea Fibromyalgia Cannabis abuse, daily use Osteoarthritis Lumbar degenerative disc disease Cholelithiasis Major depressive disorder Failed back syndrome of lumbar spine Chronic pain associated with significant psychosocial dysfunction Low back pain Chronic GERD Surgical History S/P insertion of intrathecal pump History of back surgery (~2008) Social History Are you a primary care transport nurse to a significant other at home: No Do you presently have visiting nurse or other home services: No Alcohol intake: current Alcohol intake frequency: holidays/special occasions only Patient Tobacco Use Status: Never used Tobacco Review of Systems Const All systems reviewed & are unremarkable except as noted in HPI and below ENT Reports Normal hearing present Neuro Reports Normal hearing present and Denies confusion Psych Denies confusion Physical Exam Vital Signs: Last Vital Signs Pulse 72 04/16/25 11:33 Resp 18 04/16/25 11:33 BP 133/75 04/16/25 11:33 Pulse Ox 100 04/16/25 11:33 Oxygen Delivery Method Room Air 04/16/25 11:33 BMI result Body Mass Index 31.3 Const General: cooperative, no acute distress, alert, awake and well groomed; No confusion, ill appearing or tired appearing Nutritional Appearance: obese Orientation/consciousness: patient oriented x3 and No confusion Limitations: no limitations Eyes General: appearance normal, both eyes and all related structures Resp Effort & Inspection: normal respiratory effort, able to speak in complete sentences, no audible wheezes, no cough, no respiratory distress and symmetric chest movement GI Inspection: Yes normal to inspection and Yes obesity Palpation (GI): Soft to palpation, nontender and no guarding Back/Spine/Pelvis Other: 3 incisions to back, flank and right abdomen s/p ITDD placement are healing well severe tenderness on palpation in the projection of the approximate T10-T11 thoracic spine, patient reports flexing back backwards aggravate her pain. Thoracic/Lumbar Spine: thoracic and lumbar spine normal to inspection, Lasegue's sign negative, straight leg raise negative bilaterally, pain with thoraco-lumbar ROM, paraspinal muscle tenderness, thoraco-lumbar ROM limited, No thoracic spinal tenderness and No lumbar spinal tenderness Neuro General: patient oriented x3 and No confusion Cranial nerves: Yes Normal hearing present Cognition (Neuro): normal cognition Extrem Other: Lateral and medial rotation of bilateral hips cause severe pain in the groin radiation of the pain to the trochanter. Clicking sensation in the right hip joint. General: Yes capillary refill normal, Yes no clubbing, cyanosis or edema and Yes no calf tenderness Psych Appearance: grossly normal and well kempt Mental Status: mental status grossly normal Speech and movement: Normal speech and movement present and Clear speech present Affect: normal affect Attitude: cooperative Thought process: Normal thought process present Thought content: Normal thought content present, suicidality (none), no hallucinations and No Depressive thoughts present Insight: Good insight present (Psych) Judgement: Good judgement present (Psych) Assessment & Plan Assessment & Plan (1) Failed back syndrome of lumbar spine: Code(s): M96.1 - Postlaminectomy syndrome, not elsewhere classified Category: Medical Plan: Intrathecal pump refill. THE PATIENT CAME TODAY to the office FOR THE CHANGE OF THE MEDICATION IN her PAIN PUMP. The name and date of were verified and informed consent was obtained for the procedure. ?The pump was interrogated and the residual amount of fluid was found to be 2.3 mL. SHE WAS POSITIONED supine on the bed AND THE AREA OF THE INTRATHECAL PUMP WAS PREPPED WITH CHLORAPREP. The fenestrated drape was sterilely applied over the area of the pump. Sterile gloves were worn and of the aspiration system was assembled containing 2 in 22 gauge noncoring needle, the needle was connected to extension tubing which was connected to the 20 cc sterile syringe. The pain pump was palpated under the skin in the patient's right buttock area. The needle was inserted through the skin and the central plug of the pain pump and fluid was aspirated. The clear fluid was going into the syringe the total amount of the fluid was 5.0 mL .. After that a new batch? of medication was obtained which was hydromorphone/Dilaudid 1000 micro g per mL. (new concentration) The admixture was made in the 2- 20 cc syringes prepared by [facility] compounding pharmacy. The syringe was connected to the bacterial filter, and then connected to the extension tubing. After that the medication in the syringe was slowly instilled into the pump with aspirations at 15 and 5 cc velazquez.? The pump was reprogrammed for the doses o continuous doses of hydromorphone 48 micro g per day, as well as 95 micro g of Dilaudid a day bolus duration 6 minutes lockout duration 4 hours 5 boluses per day 5 boluses in 24 hours. (2) Sacroiliac joint pain: Code(s): M53.3 - Sacrococcygeal disorders, not elsewhere classified Category: Medical (3) Bilateral hip pain: Code(s): M25.551 - Pain in right hip; M25.552 - Pain in left hip Category: Medical (4) Chronic pain syndrome: Code(s): G89.4 - Chronic pain syndrome Category: Medical (5) Lumbar radicular pain: Code(s): M54.16 - Radiculopathy, lumbar region Category: Medical (6) Lumbosacral spondylosis: Code(s): M47.817 - Spondylosis without myelopathy or radiculopathy, lumbosacral region Category: Medical (7) Lumbar degenerative disc disease: Code(s): M51.36 - Other intervertebral disc degeneration, lumbar region Category: Medical (8) Bilateral hip joint arthritis: Code(s): M16.0 - Bilateral primary osteoarthritis of hip Category: Medical (9) Intractable back pain: Code(s): M54.9 - Dorsalgia, unspecified Category: Medical (10) Spondylosis of thoracic region without myelopathy or radiculopathy: Code(s): M47.814 - Spondylosis without myelopathy or radiculopathy, thoracic region Category: Medical (11) Rheumatoid arthritis: Code(s): M06.9 - Rheumatoid arthritis, unspecified Category: Medical Plan I will refill her pump again in 76 days from now. I will send her for the MRI lumbar spine patient requested me to order the MRI to see the progression of the postlaminectomy syndrome and disc degenerative disease. Orders: Orders MR lumbar spine wo/w con Today M96.1 - Postlaminectomy syndrome, not elsewhere classified Coding Level of Care Code Est Pt Level 3 (83185) Procedure Only Diagnoses Failed back syndrome of lumbar spine M96.1 Sacroiliac joint pain M53.3 Bilateral hip pain M25.551; M25.552 Chronic pain syndrome G89.4 Lumbar radicular pain M54.16 Lumbosacral spondylosis M47.817 Lumbar degenerative disc disease M51.36 Bilateral hip joint arthritis M16.0 Intractable back pain M54.9 Spondylosis of thoracic region without myelopathy or radiculopathy M47.814 Rheumatoid arthritis M06.9
[2025-04-16 11:33] VITALS: BP 133/75; PULSE 72; RESP 18; O2SAT 100; BMI 31.3
--- OUTSIDE RECORDS SUMMARY | 2025-04-16 13:53 | XMS_ITS | Encounter Summary ---
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 Not on file Not on file Not [...] pain documented in this encounter Care Teams Button Cutting Machine Operator Relationship Specialty Start Date End Date Yumiko Hicks FNP [address] [place] [address] PCP - General Family Medicine 07/06/23 documented as of this encounter
== END 2025-04-16 12:01 | disposition home or self-care (01) ==
LOC: HO.PMC 11:29
PROVIDERS: PCP Nurse Practitioner Family; Visit Provider Anesthesiology
DX: M96.1 Postlaminectomy syndrome, not elsewhere classified (principal); M53.3 Sacrococcygeal disorders, not elsewhere classified; M25.551 Pain in right hip; M25.552 Pain in left hip; Z45.1 Encounter for adjustment and management of infusion pump; G89.4 Chronic pain syndrome; M54.16 Radiculopathy, lumbar region; M47.817 Spondylosis without myelopathy or radiculopathy, lumbosacral region; M51.369 Other intervertebral disc degeneration, lumbar region without mention of lumbar back pain or lower extremity pain; M16.0 Bilateral primary osteoarthritis of hip; M54.9 Dorsalgia, unspecified; M47.814 Spondylosis without myelopathy or radiculopathy, thoracic region; M06.9 Rheumatoid arthritis, unspecified
CPT/HCPCS: 62370; 99213

== ENCOUNTER → 2025-04-16 11:28 | Outpatient (BNVA) | payer MEDICAID, SELFPAY | PROVIDERS: PCP Nurse Practitioner Family; Visit Provider Anesthesiology | DX: M25.551 Pain in right hip (principal); M25.552 Pain in left hip; M96.1 Postlaminectomy syndrome, not elsewhere classified; M53.3 Sacrococcygeal disorders, not elsewhere classified; G89.4 Chronic pain syndrome; M54.16 Radiculopathy, lumbar region; M47.817 Spondylosis without myelopathy or radiculopathy, lumbosacral region; M54.9 Dorsalgia, unspecified; M47.814 Spondylosis without myelopathy or radiculopathy, thoracic region; M06.9 Rheumatoid arthritis, unspecified | CPT/HCPCS: 62370; 99212 ==

== ENCOUNTER 2025-07-01 10:26 | Outpatient (AMB) | payer MEDICAID, SELFPAY ==
[2025-07-01 10:42] VITALS: BP 124/57; PULSE 71; RESP 16; O2SAT 97; BMI 31.4
--- NOTE | 2025-07-01 10:42 | MHC.OFFVIS ---
Vital Signs 07/01/25 10:42 Height 5 ft 5 in Weight 189 lb BMI 31.4 BP 124/57 L Blood Pressure Location Lt brachial Position Sitting Respiration 16 Pulse 71 Pulse Source Pulse Oximeter Pulse Oximetry (%) 97 Oxygen Delivery Method Room Air Intake Visit Reasons: ITDD PUMP REFILL Casting Technician Required: No Accompanied by: Life Partner Allergies Penicillins Allergy (Unknown, Verified 07/01/25 10:49) Rash morphine Adverse Reaction (Unknown, Verified 07/01/25 10:49) Anxiety, lethargy HPI Comments Details: Salma is back in my office for pump refill. She reports very stable lower back pain under action of the pain pump. She is currently receiving 527 micro g of hydromorphone a day with maximal application of the all PTM doses. She requested me to send her for the MRI assess progression of her postlaminectomy syndrome. She is having MRI tomorrow. She will be seen in this office tomorrow to make sure that her pump is working appropriately. When her MRI reading will be ready we will discuss the changes. The pump was refilled as below, next appointment for pump refill in 73 days. Continues to endorse pain in bilateral hips with radiation of the pain in the groin. The pain is aggravated by lateral and medial rotation of the hip. Lateral rotation of the hip on the right results in severe pain in the groin and clicking sensation in the groin area. Most likely her hip joint arthritis got severely exacerbated at this time. This is most likely inflammatory pain and will not be amendable to escalation of the doses of the opioids. She is under my care with postlaminectomy syndrome lower back pain which is treated as a neuropathic pain with intrathecal pain pump. Recently had a revision done because her pump on the abdomen both flipped. Otherwise she is doing okay the pump report is demonstrating progression of the therapy. I will schedule her for bilateral intra-articular hip steroid injection in the operating room with minimal sedation. Past Procedures: 08/24/23: Right Hip Intra-Articular Steroid injection-30% pain relief 06/15/23: Caudal ADDY with catheter: 0% pain relief, made pain worse 04/19/23: Right Hip Intra-Articular Steroid injection-90% ongoing pain relief PRIOR: Patient is a 37 years old female with history of post laminectomy syndrome of lumbar spine, lumbar spine fusion L5-S1, chronic pain of his significant psychosocial dysfunction, depression, elevated STEPHANIE, obesity presents today with lower back pain radiating to her bilateral lateral hips and lower extremities laterally. Denies any recent trauma, injury, or falls. This has been chronic pain for the past 16 years and has been progressively getting worse. Pain affects her daily functioning, mobility, mood, sleep, social interactions and quality of life. Patient became tearful as she described her inadequate sleep for a very long time due to intractable pain in her lower back and difficulty finding the right positioning for comfort. Patient recently completed lumbar spine MRI which revealed new L4-L5 mild broad-based disc bulge with an extra foraminal protrusion and annular fissure. [id number] right and minimal left foraminal narrowing. Patient was recommended by her provider at [facility] to get a new spine injection which patient elected against that due to ineffective injections in the past. Currently patient is taking oxycodone which only partially alleviate her chronic back pain. I have informed patient that our office currently does not offer opioid prescribing. She was referred to us for potential spinal cord stimulator or intrathecal pump for for a more sustained pain relief. Patient is agreeable to both trials, SCS and ITDD trials, therefore I will submit referral for Behavioral Assessment today. We discussed alternative options, risk and benefits for both interventional therapies and I have provided patient and her is informational booklet today. She is also interested to get right hip intra-articular steroid and caudal ADDY with catheter injections under sedation. Patient reports she has tried physical therapy and back injections in the past and has not gained significant pain relief or improved functioning. She denies any fever, weight changes, abdominal or groin pain, bladder or bowel incontinence or saddle anesthesia. Location Low back pain and bilateral hip pain Duration Chronic back pain x16 years, progressively getting worse Characteristics of symptom or complaint Aching, spasming, tingling, shooting, shock-like, throbbing, stabbing Aggravating or associated factors Walking, standing, prolonged sitting, changing positioning, weather changes Relieving factors Oxycodone, cyclobenzaprine, amitriptyline, gabapentin, heat therapy Treatment PT, back injections, back surgery in 2008 [facility] Medical History Hip pain, right Nausea Fibromyalgia Cannabis abuse, daily use Osteoarthritis Lumbar degenerative disc disease Cholelithiasis Major depressive disorder Failed back syndrome of lumbar spine Chronic pain associated with significant psychosocial dysfunction Low back pain Chronic GERD Surgical History S/P insertion of intrathecal pump History of back surgery (~2008) Social History Are you a primary career placement services counselor to a significant other at home: No Do you presently have visiting nurse or other home services: No Alcohol intake: current Alcohol intake frequency: holidays/special occasions only Patient Tobacco Use Status: Never used Tobacco Review of Systems Const All systems reviewed & are unremarkable except as noted in HPI and below ENT Reports Normal hearing present Neuro Reports Normal hearing present and Denies confusion Psych Denies confusion Physical Exam Vital Signs: Last Vital Signs Pulse 71 07/01/25 10:42 Resp 16 07/01/25 10:42 BP 124/57 L 07/01/25 10:42 Pulse Ox 97 07/01/25 10:42 Oxygen Delivery Method Room Air 07/01/25 10:42 BMI result Body Mass Index 31.4 Const General: cooperative, no acute distress, alert, awake and well groomed; No confusion, ill appearing or tired appearing Nutritional Appearance: obese Orientation/consciousness: patient oriented x3 and No confusion Limitations: no limitations Eyes General: appearance normal, both eyes and all related structures Resp Effort & Inspection: normal respiratory effort, able to speak in complete sentences, no audible wheezes, no cough, no respiratory distress and symmetric chest movement GI Inspection: Yes normal to inspection and Yes obesity Palpation (GI): Soft to palpation, nontender and no guarding Back/Spine/Pelvis Other: 3 incisions to back, flank and right abdomen s/p ITDD placement are healing well severe tenderness on palpation in the projection of the approximate T10-T11 thoracic spine, patient reports flexing back backwards aggravate her pain. Thoracic/Lumbar Spine: thoracic and lumbar spine normal to inspection, Lasegue's sign negative, straight leg raise negative bilaterally, pain with thoraco-lumbar ROM, paraspinal muscle tenderness, thoraco-lumbar ROM limited, No thoracic spinal tenderness and No lumbar spinal tenderness Neuro General: patient oriented x3 and No confusion Cranial nerves: Yes Normal hearing present Cognition (Neuro): normal cognition Extrem Other: Lateral and medial rotation of bilateral hips cause severe pain in the groin radiation of the pain to the trochanter. Clicking sensation in the right hip joint. General: Yes capillary refill normal, Yes no clubbing, cyanosis or edema and Yes no calf tenderness Psych Appearance: grossly normal and well kempt Mental Status: mental status grossly normal Speech and movement: Normal speech and movement present and Clear speech present Affect: normal affect Attitude: cooperative Thought process: Normal thought process present Thought content: Normal thought content present, suicidality (none), no hallucinations and No Depressive thoughts present Insight: Good insight present (Psych) Judgement: Good judgement present (Psych) Assessment & Plan Assessment & Plan (1) Failed back syndrome of lumbar spine: Code(s): M96.1 - Postlaminectomy syndrome, not elsewhere classified Category: Medical Plan: Intrathecal pump refill. THE PATIENT CAME TODAY to the office FOR THE CHANGE OF THE MEDICATION IN her PAIN PUMP. The name and date of were verified and informed consent was obtained for the procedure. ?The pump was interrogated and the residual amount of fluid was found to be 0.2 mL. SHE WAS POSITIONED supine on the bed AND THE AREA OF THE INTRATHECAL PUMP WAS PREPPED WITH CHLORAPREP. The fenestrated drape was sterilely applied over the area of the pump. Sterile gloves were worn and of the aspiration system was assembled containing 2 in 22 gauge noncoring needle, the needle was connected to extension tubing which was connected to the 20 cc sterile syringe. The pain pump was palpated under the skin in the patient's right buttock area. The needle was inserted through the skin and the central plug of the pain pump and fluid was aspirated. The clear fluid was going into the syringe the total amount of the fluid was 3.0 mL .. After that a new batch? of medication was obtained which was hydromorphone/Dilaudid 1000 micro g per mL. (new concentration) The admixture was made in the 2- 20 cc syringes prepared by [facility] compounding pharmacy. The syringe was connected to the bacterial filter, and then connected to the extension tubing. After that the medication in the syringe was slowly instilled into the pump with aspirations at 15 and 5 cc velazquez.? The pump was reprogrammed for the doses o continuous doses of hydromorphone 48 micro g per day, as well as 95 micro g of Dilaudid a day bolus duration 6 minutes lockout duration 4 hours 5 boluses per day 5 boluses in 24 hours. (2) Sacroiliac joint pain: Code(s): M53.3 - Sacrococcygeal disorders, not elsewhere classified Category: Medical (3) Bilateral hip pain: Code(s): M25.551 - Pain in right hip; M25.552 - Pain in left hip Category: Medical (4) Chronic pain syndrome: Code(s): G89.4 - Chronic pain syndrome Category: Medical (5) Lumbar radicular pain: Code(s): M54.16 - Radiculopathy, lumbar region Category: Medical (6) Lumbosacral spondylosis: Code(s): M47.817 - Spondylosis without myelopathy or radiculopathy, lumbosacral region Category: Medical (7) Lumbar degenerative disc disease: Code(s): M51.36 - Other intervertebral disc degeneration, lumbar region Category: Medical (8) Bilateral hip joint arthritis: Code(s): M16.0 - Bilateral primary osteoarthritis of hip Category: Medical (9) Intractable back pain: Code(s): M54.9 - Dorsalgia, unspecified Category: Medical (10) Spondylosis of thoracic region without myelopathy or radiculopathy: Code(s): M47.814 - Spondylosis without myelopathy or radiculopathy, thoracic region Category: Medical (11) Rheumatoid arthritis: Code(s): M06.9 - Rheumatoid arthritis, unspecified Category: Medical Plan I will refill her pump again in 73 days from now. She is having an MRI tomorrow. I will evaluate MRI as soon as reading will be ready. Coding Level of Care Code Est Pt Level 3 (28389) Procedure Only Diagnoses Failed back syndrome of lumbar spine M96.1 Sacroiliac joint pain M53.3 Bilateral hip pain M25.551; M25.552 Chronic pain syndrome G89.4 Lumbar radicular pain M54.16 Lumbosacral spondylosis M47.817 Lumbar degenerative disc disease M51.36 Bilateral hip joint arthritis M16.0 Intractable back pain M54.9 Spondylosis of thoracic region without myelopathy or radiculopathy M47.814 Rheumatoid arthritis M06.9
--- OUTSIDE RECORDS SUMMARY | 2025-07-01 12:41 | XMS_ITS | Clinical Summary ---
Author Organization [facility] Address [address] [place] [address] Phone Care Team Providers Care Trail Construction Worker Name Role Phone Stormy Pimentel NP Primary Care Provide r Allergies Active Allergy Reactions Criticality Noted Date Comments Duloxetine Hcl Dizziness 09/28/2022 Morphine 04/21/2022 Knocked her out Penicillin Hives 04/21/2022 Medications oxyCODONE (OXY-IR) 5 mg capsule Take 5-10 mg by mouth 4 (four) times a day as needed. 2 Active gabapentin (NEURONTIN) 100 MG capsule Take 200 mg by mouth. 2 Active amitriptyline (ELAVIL) 10 MG tablet Take 10 mg by mouth nightly at bedtime. 2 Active ibuprofen (ADVIL,MOTRIN) 600 MG tablet Take 600 mg by mouth 3 (three) times a day as needed. Active omeprazole (PRILOSEC) 40 MG capsule Take 1 capsule by mouth daily. 2 Active folic acid (FOLVITE) 1 MG tablet Take 1,000 mcg by mouth daily. 2 Active ondansetron (ZOFRAN-ODT) 4 MG disintegrating tablet DISSOLVE 1 TAB ON TONGUE 3 TIMES A DAY NEEDED FOR 14 DAYS 2 Active cyclobenzaprine (FLEXERIL) 5 MG tablet TAKE 1 TABLET BY MOUTH EVERY DAY AT BEDTIME NEEDED FOR 30 DAYS 2 Active Family History Medical History Relation Comments Arthritis Father Breast cancer Maternal Aunt Arthritis Mother Fibromyalgia Mother Relation Status Comments Brother Alive Father Alive Maternal Aunt Mother Alive Social History Tobacco Use Types Packs/Day Years Used Date Smoking Tobacco: Never Assessed Education Answer Date Recorded Are you interested in more education? Not on james e 02/15/2023 Are you concerned about learning? Not on file 02/15/2023 No 02/15/2023 No 02/15/2023 Digital Access Answer Date Recorded No 03/19/2023 No 03/19/2023 Reliable internet access at home? Not on file 03/19/2023 Device with a working camera? Not on file Comments Unknown Sex and Gender Information Value Date Recorded Sex Assigned at Not on file Legal Sex Female 9:13 PM EDT Gender Identity Not on file Sexual Orientation Not on file Plan of Treatment Health Maintenance Due Date Last Done Comments Adult Td,Tdap Booster 1986 DEPRESSION SCREENING 1998 SMOKING Hx and SMOKELESS TOB ACCO SCREENING 1999 HEPATITIS C SCREENING 2004 HIV ONE-TIME SCREENING (18-6 5 YEARS) 2004 PAP SMEAR 2007 INFLUENZA VACCINE (#1) 2025 COVID-19 VACCINE (2023-2 5 season) 2025 HEPATITIS A VACCINES Aged Out No long er eligible based on patient's age to complete this topic HIB VACCINES Aged Out No longer eligi ble based on patient's age to complete this topic MENINGOCOCCAL VACCINES (ACWY) Aged Out No longer eligible based on patient's age to complete this topic MENINGOCOCCAL VACCINES (B) Aged Out N o longer eligible based on patient's age to complete this topic PNEUMOCOCCAL VACCINES (0-49 years) Aged Out No longer eligible based on patient's age to complete this topic Medical Devices Not on file Insurance [facility] C3 ACO ON LICENSE OF [facility] Member Subscriber Plan / Payer (Ef fective 2017-Present) Name:Iban Purnima Relation to Subscriber:Self Name:IBANPURNIMA Payer ID:Not on file Group ID:Not on file Type:Medicaid Address: ONE [address] C3 ACO ON LICENSE OF [facility] Member Subscriber Plan / Payer (Ef fective 2017-Present) Name:Purnima Ferrera Relation to Subscriber:Self Name:PURNIMA FERRERA Payer ID:Not on file Group ID:Not on file Type:Medicaid Address: ONE [address] C3 ACO [facility] Member Subscriber Plan / Payer (Ef fective 2017-Present) Name:Purnima Ferrera Relation to Subscriber:Self Name:IBANPURNIMA Payer ID:Not on file Group ID:Not on file Type:Medicaid Address: ONE [address] C3 ACO ON LICENSE OF [facility] C3 ACO [facility] Member Subscriber Plan / Payer (Ef fective 2017-Present) Name:Purnima Ferrera Relation to Subscriber:Self Name:PURNIMA FERRERA Payer ID:Not on file Group ID:Not on file Type:Medicaid Address: ONE [address] C3 ACO [facility] Member Subscriber Plan / Payer (Ef fective 2017-Present) Name:Purnima Ferrera Relation to Subscriber:Self Name:PURNIMA FERRERA Payer ID:Not on file Group ID:Not on file Type:Medicaid Address: ONE [address] [employer] C3 ACO [facility] Member Subscriber Plan / Payer (Ef fective 2017-Present) Name:Purnima Ferrera Relation to Subscriber:Self Name:PURNIMA FERRERA Payer ID:Not on file Group ID:Not on file Type:Medicaid Address: ONE [address] C3 ACO [facility] C3 ACO Care Teams Trail Construction Worker Relationship Specialty Start Date End Date Stormy Pimentel NP PCP - General 11/09/21 Additional Source Comments The information contained in this document represents components of the legal health record. It is not the complete legal health record.[facility]
--- OUTSIDE RECORDS SUMMARY | 2025-07-01 12:41 | XMS_ITS | Encounter Summary ---
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
--- OUTSIDE RECORDS SUMMARY | 2025-07-01 12:41 | XMS_ITS | Encounter Summary ---
Author Organization [employer] Address [address] [place] [address] Care Team Providers Care Java Tech Lead Name Role Phone Stormy PimentelP Primary Care Provider Un available Yumiko Hicks Primary Care Provider [phone] Encounter Details Date Type Department Care Team (Late st Contact Info) Description 09/28/2022 Abstract [facility] [address] [place] [address] Meli Guerrero MA Social History Tobacco Use [...] on filedocumented in this encounter Care Teams Java Tech Lead Relationship Specialty Start Date End Date Stormy Pimentel FNP PCP - General Family Medicine 10/30/22 07/05/23 Yumiko Hicks FNP [address] [facility] [place] [address] PCP - General Family Medicine 07/06/23 documented as of this encounter
--- OUTSIDE RECORDS SUMMARY | 2025-07-01 12:41 | XMS_ITS | Encounter Summary ---
Author Organization [employer] Address [address] [place] [address] Care Team Providers Care Nurse Manager Name Role Phone Yumiko Hicsk ANGELY Primary Care Provider [phone] Encounter Details Date Type Department Care Team (Late st Contact Info) Description 11/08/2024 Orders Only [place] [facility] [address] [place] [address] ProviderGavi MD Social History Tobacco Use Types Packs/Day Years [...] on filedocumented in this encounter Care Teams Nurse Manager Relationship Specialty Start Date End Date Yumiko Hicks FNP [address] [place] [address] PCP - General Family Medicine 07/06/23 documented as of this encounter
--- OUTSIDE RECORDS SUMMARY | 2025-07-01 12:41 | XMS_ITS | Encounter Summary ---
Author Organization [employer] Address [address] [place] [address] Care Team Providers Care Client Service Supervisor Name Role Phone Yumiko Hicks MEDICAL BILLING SUPERVISOR Primary Care Provider [phone] Reason for Visit * Reason Comments Med Refill Encounter Details Date Type Department Care Team (Late st Contact Info) Description 06/17/2025 Refill [facility] [address] [place] [address] Dee Dee Kingsley MD [address] [place] [address] Other chronic pain (Primary Dx) Social History Tobacco Use Types Packs/Day Years [...] encounter Miscellaneous Notes * Telephone Encounter - Jessica Clemente MD - 06/17/2025 10:05 AM EDT Approving, but needs appt for additional refills. * Telephone Encounter - Gisel Melendrez MA - 06/17/2025 9:07 AM EDT Sent to [facility]- 09/24/24 NOV- N/A documented in this encounter Plan of Treatment Not on file documented as of this encounter Visit Diagnoses Diagnosis Other chronic pain- Primary documented in this encounter Care Teams Client Service Supervisor Relationship Specialty Start Date End Date Yumiko Hicks FNP [address] [place] [address] PCP - General Family Medicine 07/06/23 documented as of this encounter
--- OUTSIDE RECORDS SUMMARY | 2025-07-01 12:41 | XMS_ITS | Encounter Summary ---
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
--- OUTSIDE RECORDS SUMMARY | 2025-07-01 12:41 | XMS_ITS | Clinical Summary ---
Author Organization [employer] Address [address] [facility] [address] [place] [address] Care Team Providers Care Bus Matron Name Role Phone Yumiko Hicks TRANSPORTATION ATTENDANT Primary Care Provider [phone] Allergies Active Allergy Reactions Criticality Noted Date [...] MORNING 30 tablet 1 04/23/20 24 Active folic acid (Folvite) 1 MG [...] spray PLEASE SEE ATTACHED FOR DETAILED DIRECTIONS 07/09/20 24 Active amitriptyline (Elavil) 100 MG tabletIndications :Other chronic pain TAKE 1 TABLET BY MOUTH EVERYDAY AT BEDTIME 30 tablet 2 05/20/20 25 Active ondansetron ODT (Zofran-ODT) 4 MG disintegrating tabletIndications :Nausea DISSOLVE 1 TABLET ON TONGUE 3 TIMES A DAY FOR 14 DAYS NEEDED 42 tablet 06/15/20 25 Active cyclobenzaprine (Flexeril) 5 MG tabletIndications :Other chronic pain TAKE 1 TABLET BY MOUTH TWICE DAILY NEEDED FOR MUSCLE SPASMS. 60 tablet 06/17/20 25 Active ondansetron ODT (Zofran-ODT) 4 MG disintegrating tabletIndications :Nausea DISSOLVE 1 TABLET ON TONGUE 3 TIMES A DAY FOR 14 DAYS NEEDED 42 tablet 03/27/20 25 2024 Discontinued cyclobenzaprine (Flexeril) 5 MG tabletIndications :Other chronic pain TAKE 1 TABLET (5 MG) BY MOUTH TWICE DAILY NEEDED FOR MUSCLE SPASMS. 60 tablet 05/20/20 25 2024 Discontinued Active Problems Problem Noted Date Diagnosed Date Presence of intrathecal pump 04/30/2024 Overview (04/30/2024): Images from the original note were not included. 04/17/24 [facility]/Jessie SANCHES: intrathecal med refill. 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 Seen by physical medicine 01/30/23; note reviewed; Had MRI 02/2022 which revealed new L4-L5 mild broad based disc bulge with extraforaminal protrusion and annular fissure, mild to mod right and minimal left foraminal narrowing. Declined referral for spin injection; discussed referral to [place] or [facility] pain specialist for potential spinal cord stimulator [...] Encounters Date Type Department Care Team Description 06/17/[address] [address] Dee Dee Kingsley MD Other chronic pain (Primary Dx) 06/12/[address] [address] Willa Rangel, DO Nausea 05/20/[address] [address] Willa Rangel, DO Other chronic pain 04/23/[address] [address] Dee Dee Kingsley MD Other chronic pain from Last 3 Months Family History Medical [...] 96 09/24/2024 12:37 PM EST Temperature 36.3 C (97.3 F) 09/24/2024 12:37 PM EST Respiratory Rate 16 02/22/2023 10:54 AM EDT Oxygen Saturation 98% 09/24/2024 12:37 PM EST Inhaled Oxygen Concentration - - Weight 94.3 kg (208 lb) 09/24/2024 12:37 PM EST Height 162.6 cm (5' 4 ) 09/24/2024 12:37 PM EST Body Mass Index 35.7 09/24/2024 12:37 PM EST Plan of Treatment Health Maintenance Due Date Last Done Comments Dental Oral Exam 1986 Dental Prophylaxis 1986 Dental X-Ray: Bitewings 1986 Dental X-Ray: Full Mouth 1986 HIV Screening 1986 HPV Vaccines (1 - 3-dose series) 2001 DTaP/Tdap/Td Vaccines (1 - Tdap) 2005 Hepatitis B Vaccines (1 of 3 - 19+ 3-dose series) 2005 Pap Smear 2007 Cervical Cancer Screening 2016 HPV/Cotest 2016 COVID-19 Vaccine (1 - 2023-2 5 season) 2025 Influenza Vaccine (#1) 2025 Alcohol/Substance Use Screening 09/24/2025 09/24/2024 Depression Screening 09/24/2025 09/24/2024, 09/24/2024 Disability Screening 09/24/2025 09/24/2024 Family Planning (PISQ) 09/24/2025 09/24/2024 SDOH [...] patient's age to complete this topic Meningococcal B Vaccine Aged Out No l onger eligible based on patient's age to complete this topic Meningococcal Vaccine Aged Out No eber ankur eligible based on patient's age to complete this topic Pneumococcal Vaccine: Pediatrics (0 to 5 Years) and At-Risk Patients (6 to 49) Years Aged Out No longer eligible b ased [...] Most Recently Relevant to Health Maintenance Insurance [facility] C3 DENTAL-[facility] MEDICAID STAND ADULT Care Teams Bus Matron Relationship Specialty Start Date End Date Yumiko Hicks FNP [address] [place] [address] PCP - General Family Medicine 07/06/23
--- OUTSIDE RECORDS SUMMARY | 2025-07-01 12:41 | XMS_ITS | Encounter Summary ---
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
== END 2025-07-01 11:09 | disposition home or self-care (01) ==
LOC: HO.PMC 10:27
PROVIDERS: PCP Nurse Practitioner Family; Visit Provider Anesthesiology
DX: M96.1 Postlaminectomy syndrome, not elsewhere classified (principal); M53.3 Sacrococcygeal disorders, not elsewhere classified; M25.551 Pain in right hip; M25.552 Pain in left hip; Z45.1 Encounter for adjustment and management of infusion pump; G89.4 Chronic pain syndrome; M54.16 Radiculopathy, lumbar region; M47.817 Spondylosis without myelopathy or radiculopathy, lumbosacral region; M51.369 Other intervertebral disc degeneration, lumbar region without mention of lumbar back pain or lower extremity pain; M16.0 Bilateral primary osteoarthritis of hip; M54.9 Dorsalgia, unspecified; M47.814 Spondylosis without myelopathy or radiculopathy, thoracic region; M06.9 Rheumatoid arthritis, unspecified
CPT/HCPCS: 62370; 99213

== ENCOUNTER → 2025-07-01 10:26 | Outpatient (BNVA) | payer MEDICAID, SELFPAY | PROVIDERS: PCP Nurse Practitioner Family; Visit Provider Anesthesiology | DX: Z45.89 Encounter for adjustment and management of other implanted devices (principal); M96.1 Postlaminectomy syndrome, not elsewhere classified; M53.3 Sacrococcygeal disorders, not elsewhere classified; M25.551 Pain in right hip; M25.552 Pain in left hip; M54.16 Radiculopathy, lumbar region; M47.817 Spondylosis without myelopathy or radiculopathy, lumbosacral region; M51.369 Other intervertebral disc degeneration, lumbar region without mention of lumbar back pain or lower extremity pain; M16.0 Bilateral primary osteoarthritis of hip; M54.9 Dorsalgia, unspecified; M47.814 Spondylosis without myelopathy or radiculopathy, thoracic region; M06.9 Rheumatoid arthritis, unspecified; G89.4 Chronic pain syndrome; Z79.891 Long term (current) use of opiate analgesic | CPT/HCPCS: 62370; 99212 ==

== ENCOUNTER 2025-07-02 10:30 | Outpatient (REF) | payer MEDICAID, SELFPAY ==
--- NOTE | ~2025-07-02 | XR_ITS ---
EXAMINATION: XR ABDOMEN KUB CLINICAL INDICATION: DETERMINE PUMP ORIENTATION, PRE MRI COMPARISON: Same x-ray TECHNIQUE: Single lateral view of the abdomen. FINDINGS: Mechanical device projects over the anterior right mid abdomen. It is vertically oriented with the anterior margin deviates toward the midline. 2. Surgical clips project in the soft tissues inferior to the device. Interbody spacer is present at L5-S1. XR/XR abdomen 1V IMPRESSION: Mechanical device is present in the anterior right abdomen oriented in a vertical plane with the anterior margin deviated toward midline of the abdomen. Electronically signed by: Gerald Wilkerson MD 07/02/2025 11:56 AM EDT
--- NOTE | ~2025-07-02 | XR_ITS ---
EXAMINATION: XR ABDOMEN 1 VIEW (KUB) HISTORY: PRE MRI DETERMINE PUMP ORIENTATION COMPARISON: There are no prior studies available for comparison. FINDINGS: Two supine views of the abdomen are submitted. The bowel gas pattern is unremarkable, without evidence of mechanical obstruction. There is a large amount of stool throughout the colon. A metallic device is seen in the right lateral abdominal wall. An IUD is noted in the midline of the pelvis. Surgical clips project over the sacrum. There are no abnormal soft tissue masses. The bones are intact. XR/XR abdomen 1V IMPRESSION: 1. Large amount of stool throughout the colon. 2. Metallic device in the right lateral abdominal wall. Electronically signed by: Aurelio Stern MD 07/02/2025 11:21 AM EDT
--- NOTE | ~2025-07-02 | XR_ITS ---
EXAMINATION: XR CHEST 1 VIEW HISTORY: CHEST, DETERMINE PUMP COMPARISON: There are no prior studies available for comparison. FINDINGS: A single PA of the chest is submitted. The lungs are expanded and clear. There is no pleural effusion, pneumothorax, or pulmonary vascular congestion. The heart is normal in size. The bones are intact. XR/XR chest 1V IMPRESSION: Clear lungs. Electronically signed by: Aurelio Stern MD 07/02/2025 11:18 AM EDT
== END 2025-07-02 10:31 | disposition home or self-care (01) ==
LOC: HO.MRI 10:30
PROVIDERS: Visit Provider Anesthesiology
DX: M96.1 Postlaminectomy syndrome, not elsewhere classified (principal); M53.3 Sacrococcygeal disorders, not elsewhere classified; M54.16 Radiculopathy, lumbar region
CPT/HCPCS: 71045; 74018

== ENCOUNTER → 2025-07-02 10:42 | Outpatient (BNV) | payer MEDICAID, SELFPAY | PROVIDERS: Visit Provider Radiology Diagnostic Radiology | DX: Z45.1 Encounter for adjustment and management of infusion pump (principal); K59.00 Constipation, unspecified; T85.698A Other mechanical complication of other specified internal prosthetic devices, implants and grafts, initial encounter | CPT/HCPCS: 71045; 74018 ==

== ENCOUNTER 2025-09-10 10:00 | Outpatient (AMB) | payer MEDICAID, SELFPAY ==
--- NOTE | 2025-09-10 10:03 | A.OFFVIS_ITS ---
Vital Signs 3 09/10/25 10:04 Height 5 ft 5 in Weight 204 lb BMI 33.9 BP 114/74 Blood Pressure Location Rt brachial Position Sitting Respiration 16 Pulse 82 Pulse Source Pulse Oximeter Pulse Oximetry (%) 97 Oxygen Delivery Method Room Air Intake Visit Reasons: ITDD REFILL Label Paster Required: No Accompanied by: Life Partner Allergies Penicillins Allergy (Unknown, Verified 09/10/25 10:16) Rash morphine Adverse Reaction (Unknown, Verified 09/10/25 10:16) Anxiety, lethargy HPI Comments Details: Salma is back in my office for pump refill. She reports very good results of the pain pump action. She reports improved mobility and activities of daily living. She continues to receive 48 micro g a day of hydromorphone and she continues to receive on current session 95 micro g of hydromorphone 5 times a day or 1 bolus in 4 hours. The maximum daily dose she can not receive is 521 micro g of hydromorphone a day. Next pump refill will be scheduled on 11/25/2025. We would need to order preservative-free normal saline 40 cc with concentration of hydromorphone 1 milligram/mL or 1000 micro g per mL. Continues to endorse pain in bilateral hips with radiation of the pain in the groin. The pain is aggravated by lateral and medial rotation of the hip. Lateral rotation of the hip on the right results in severe pain in the groin and clicking sensation in the groin area. Most likely her hip joint arthritis got severely exacerbated at this time. This is most likely inflammatory pain and will not be amendable to escalation of the doses of the opioids. She is under my care with postlaminectomy syndrome lower back pain which is treated as a neuropathic pain with intrathecal pain pump. Recently had a revision done because her pump on the abdomen both flipped. Otherwise she is doing okay the pump report is demonstrating progression of the therapy. I will schedule her for bilateral intra-articular hip steroid injection in the operating room with minimal sedation. Past Procedures: 08/24/23: Right Hip Intra-Articular Steroid injection-30% pain relief 06/15/23: Caudal ADDY with catheter: 0% pain relief, made pain worse 04/19/23: Right Hip Intra-Articular Steroid injection-90% ongoing pain relief PRIOR: Patient is a 37 years old female with history of post laminectomy syndrome of lumbar spine, lumbar spine fusion L5-S1, chronic pain of his significant psychosocial dysfunction, depression, elevated STEPHANIE, obesity presents today with lower back pain radiating to her bilateral lateral hips and lower extremities laterally. Denies any recent trauma, injury, or falls. This has been chronic pain for the past 16 years and has been progressively getting worse. Pain affects her daily functioning, mobility, mood, sleep, social interactions and quality of life. Patient became tearful as she described her inadequate sleep for a very long time due to intractable pain in her lower back and difficulty finding the right positioning for comfort. Patient recently completed lumbar spine MRI which revealed new L4-L5 mild broad-based disc bulge with an extra foraminal protrusion and annular fissure. [id number] right and minimal left foraminal narrowing. Patient was recommended by her provider at [facility] to get a new spine injection which patient elected against that due to ineffective injections in the past. Currently patient is taking oxycodone which only partially alleviate her chronic back pain. I have informed patient that our office currently does not offer opioid prescribing. She was referred to us for potential spinal cord stimulator or intrathecal pump for for a more sustained pain relief. Patient is agreeable to both trials, SCS and ITDD trials, therefore I will submit referral for Behavioral Assessment today. We discussed alternative options, risk and benefits for both interventional therapies and I have provided patient and her is informational booklet today. She is also interested to get right hip intra-articular steroid and caudal ADDY with catheter injections under sedation. Patient reports she has tried physical therapy and back injections in the past and has not gained significant pain relief or improved functioning. She denies any fever, weight changes, abdominal or groin pain, bladder or bowel incontinence or saddle anesthesia. Location Low back pain and bilateral hip pain Duration Chronic back pain x16 years, progressively getting worse Characteristics of symptom or complaint Aching, spasming, tingling, shooting, shock-like, throbbing, stabbing Aggravating or associated factors Walking, standing, prolonged sitting, changing positioning, weather changes Relieving factors Oxycodone, cyclobenzaprine, amitriptyline, gabapentin, heat therapy Treatment PT, back injections, back surgery in 2008 [facility] Medical History Hip pain, right Nausea Fibromyalgia Cannabis abuse, daily use Osteoarthritis Lumbar degenerative disc disease Cholelithiasis Major depressive disorder Failed back syndrome of lumbar spine Chronic pain associated with significant psychosocial dysfunction Low back pain Chronic GERD Surgical History S/P insertion of intrathecal pump History of back surgery (~2008) Social History Are you a primary home care associate to a significant other at home: No Do you presently have visiting nurse or other home services: No Alcohol intake: current Alcohol intake frequency: holidays/special occasions only Patient Tobacco Use Status: Never used Tobacco Review of Systems Const All systems reviewed & are unremarkable except as noted in HPI and below ENT Reports Normal hearing present Neuro Reports Normal hearing present and Denies confusion Psych Denies confusion Physical Exam Vital Signs: Last Vital Signs Pulse 82 09/10/25 10:04 Resp 16 09/10/25 10:04 BP 114/74 09/10/25 10:04 Pulse Ox 97 09/10/25 10:04 Oxygen Delivery Method Room Air 09/10/25 10:04 BMI result Body Mass Index 33.9 Const General: cooperative, no acute distress, alert, awake and well groomed; No confusion, ill appearing or tired appearing Nutritional Appearance: obese Orientation/consciousness: patient oriented x3 and No confusion Limitations: no limitations Eyes General: appearance normal, both eyes and all related structures Resp Effort & Inspection: normal respiratory effort, able to speak in complete sentences, no audible wheezes, no cough, no respiratory distress and symmetric chest movement GI Inspection: Yes normal to inspection and Yes obesity Palpation (GI): Soft to palpation, nontender and no guarding Back/Spine/Pelvis Other: 3 incisions to back, flank and right abdomen s/p ITDD placement are healing well severe tenderness on palpation in the projection of the approximate T10-T11 thoracic spine, patient reports flexing back backwards aggravate her pain. Thoracic/Lumbar Spine: thoracic and lumbar spine normal to inspection, Lasegue's sign negative, straight leg raise negative bilaterally, pain with thoraco-lumbar ROM, paraspinal muscle tenderness, thoraco-lumbar ROM limited, No thoracic spinal tenderness and No lumbar spinal tenderness Neuro General: patient oriented x3 and No confusion Cranial nerves: Yes Normal hearing present Cognition (Neuro): normal cognition Extrem Other: Lateral and medial rotation of bilateral hips cause severe pain in the groin radiation of the pain to the trochanter. Clicking sensation in the right hip joint. General: Yes capillary refill normal, Yes no clubbing, cyanosis or edema and Yes no calf tenderness Psych Appearance: grossly normal and well kempt Mental Status: mental status grossly normal Speech and movement: Normal speech and movement present and Clear speech present Affect: normal affect Attitude: cooperative Thought process: Normal thought process present Thought content: Normal thought content present, suicidality (none), no hallucinations and No Depressive thoughts present Insight: Good insight present (Psych) Judgement: Good judgement present (Psych) Results Reviewed Results Reviewed: Assessment & Plan Assessment & Plan (1) Failed back syndrome of lumbar spine: Code(s): M96.1 - Postlaminectomy syndrome, not elsewhere classified Category: Medical Plan: Intrathecal pump refill. THE PATIENT CAME TODAY to the office FOR THE CHANGE OF THE MEDICATION IN her PAIN PUMP. The name and date of were verified and informed consent was obtained for the procedure. ?The pump was interrogated and the residual amount of fluid was found to be 4.5 mL. SHE WAS POSITIONED supine on the bed AND THE AREA OF THE INTRATHECAL PUMP WAS PREPPED WITH CHLORAPREP. The fenestrated drape was sterilely applied over the area of the pump. Sterile gloves were worn and of the aspiration system was assembled containing 2 in 22 gauge noncoring needle, the needle was connected to extension tubing which was connected to the 20 cc sterile syringe. The pain pump was palpated under the skin in the patient's right buttock area. The needle was inserted through the skin and the central plug of the pain pump and fluid was aspirated. The clear fluid was going into the syringe the total amount of the fluid was 7.0 mL .. After that a new batch? of medication was obtained which was hydromorphone/Dilaudid 1000 micro g per mL. (new concentration) The admixture was made in the 2- 20 cc syringes prepared by [facility] compounding pharmacy. The syringe was connected to the bacterial filter, and then connected to the extension tubing. After that the medication in the syringe was slowly instilled into the pump with aspirations at 15 and 5 cc velazquez.? The pump was reprogrammed for the doses o continuous doses of hydromorphone 48 micro g per day, as well as 95 micro g of Dilaudid a day bolus duration 6 minutes lockout duration 4 hours 5 boluses per day 5 boluses in 24 hours. (2) Sacroiliac joint pain: Code(s): M53.3 - Sacrococcygeal disorders, not elsewhere classified Category: Medical (3) Bilateral hip pain: Code(s): M25.551 - Pain in right hip; M25.552 - Pain in left hip Category: Medical (4) Chronic pain syndrome: Code(s): G89.4 - Chronic pain syndrome Category: Medical (5) Lumbar radicular pain: Code(s): M54.16 - Radiculopathy, lumbar region Category: Medical (6) Lumbosacral spondylosis: Code(s): M47.817 - Spondylosis without myelopathy or radiculopathy, lumbosacral region Category: Medical (7) Lumbar degenerative disc disease: Code(s): M51.36 - Other intervertebral disc degeneration, lumbar region Category: Medical (8) Bilateral hip joint arthritis: Code(s): M16.0 - Bilateral primary osteoarthritis of hip Category: Medical (9) Intractable back pain: Code(s): M54.9 - Dorsalgia, unspecified Category: Medical (10) Spondylosis of thoracic region without myelopathy or radiculopathy: Code(s): M47.814 - Spondylosis without myelopathy or radiculopathy, thoracic region Category: Medical (11) Rheumatoid arthritis: Code(s): M06.9 - Rheumatoid arthritis, unspecified Category: Medical Plan Her next appointment will be scheduled on 6. Coding Level of Care Code Est Pt Level 3 (18830) Procedure Only Diagnoses Failed back syndrome of lumbar spine M96.1 Sacroiliac joint pain M53.3 Bilateral hip pain M25.551; M25.552 Chronic pain syndrome G89.4 Lumbar radicular pain M54.16 Lumbosacral spondylosis M47.817 Lumbar degenerative disc disease M51.36 Bilateral hip joint arthritis M16.0 Intractable back pain M54.9 Spondylosis of thoracic region without myelopathy or radiculopathy M47.814 Rheumatoid arthritis M06.9
[2025-09-10 10:04] VITALS: BP 114/74; PULSE 82; RESP 16; O2SAT 97; BMI 33.9
== END 2025-09-10 10:29 | disposition home or self-care (01) ==
LOC: HO.PMC 10:01
PROVIDERS: PCP Nurse Practitioner Family; Visit Provider Anesthesiology
DX: M96.1 Postlaminectomy syndrome, not elsewhere classified (principal); M53.3 Sacrococcygeal disorders, not elsewhere classified; M25.551 Pain in right hip; M25.552 Pain in left hip; G89.4 Chronic pain syndrome; M54.16 Radiculopathy, lumbar region; M47.817 Spondylosis without myelopathy or radiculopathy, lumbosacral region; M51.369 Other intervertebral disc degeneration, lumbar region without mention of lumbar back pain or lower extremity pain; M16.0 Bilateral primary osteoarthritis of hip; M54.9 Dorsalgia, unspecified; M47.814 Spondylosis without myelopathy or radiculopathy, thoracic region; M06.9 Rheumatoid arthritis, unspecified; Z45.1 Encounter for adjustment and management of infusion pump
CPT/HCPCS: 62370; 99213

== ENCOUNTER → 2025-09-10 10:00 | Outpatient (BNVA) | payer MEDICAID, SELFPAY | PROVIDERS: PCP Nurse Practitioner Family; Visit Provider Anesthesiology | DX: Z45.1 Encounter for adjustment and management of infusion pump (principal); M96.1 Postlaminectomy syndrome, not elsewhere classified; M53.3 Sacrococcygeal disorders, not elsewhere classified; M25.551 Pain in right hip; M25.552 Pain in left hip; G89.4 Chronic pain syndrome; M54.16 Radiculopathy, lumbar region; M47.817 Spondylosis without myelopathy or radiculopathy, lumbosacral region; M51.360 Other intervertebral disc degeneration, lumbar region with discogenic back pain only; M16.0 Bilateral primary osteoarthritis of hip; M54.9 Dorsalgia, unspecified; M06.9 Rheumatoid arthritis, unspecified; Z79.891 Long term (current) use of opiate analgesic | CPT/HCPCS: 62370; 99212 ==